=== PATIENT | female | born 1985 | race Caucasian/White ===

== ENCOUNTER 2022-06-11 08:29 | Outpatient (REF) | payer OTHER, SELFPAY ==
[2022-06-11 08:37] LABS: MANUAL DIFF FLAG NO
[2022-06-11 09:30] LABS: Basophils Percent Auto 0.7 % (0-2); Eosinophils Absolute Auto 0.1 X10*3/uL (0.0-0.4); Eosinophils Percent Auto 2.4 % (0-4); Hematocrit 43.3 % (37.0-47.0); Hemoglobin 14.1 g/dl (12.0-16.0); Imm Gran Abs Auto 0.03 X10*3/uL (0.00-0.03); Imm Gran Pct Auto 0.5 % (0.0-0.4); Lymphocytes Absolute Auto 1.4 X10*3/uL (1.2-4.9); Lymphocytes Percent Auto 25.2 % (20-40); Mean Corpuscular HGB Conc 32.6 g/dl (31.0-35.0); Mean Corpuscular Hemoglobin 29.2 pg (27.0-33.0); Mean Corpuscular Volume 89.6 fL (80.0-98.0); Mean Platelet Volume 10.9 fL (9.4-12.3); Monocytes Absolute Auto 0.5 X10*3/uL (0.1-1.2); Monocytes Percent Auto 8.4 % (2-11); Neutrophils Absolute Auto 3.4 x10*3/uL (2.0-8.3); Neutrophils Percent Auto 62.8 % (45-73); Platelet Count 194 X10*3/uL (160-400); Red Blood Count 4.83 X10*6/uL (4.20-5.50); Red Cell Distribution Width 12.4 % (11.0-16.0); White Blood Count 5.5 X10*3/uL (4.8-10.8)
[2022-06-11 10:07] LABS: Alanine Aminotransferase 18 U/L (0-31); Albumin Level 4.2 g/dL (3.5-5.0); Alkaline Phosphatase 83 U/L (39-117); Anion Gap 10 (12-20); Aspartate Amino Transferase 13 U/L (5-31); Bilirubin Total 0.4 mg/dL (0.0-1.0); Blood Urea Nitrogen 18 mg/dL (9-16); Calcium 9.5 mg/dL (8.4-10.2); Carbon Dioxide 28 mmol/L (22-29); Chloride 109 mmol/L (96-108); Cholesterol 179 mg/dL; Estimated Glomerular Filt Rate > 60; Glucose Random 82 mg/dL (60-115); HDL Cholesterol 45 mg/dL; LDL Cholesterol Calculated 120 mg/dl; Potassium 4.4 mmol/L (3.3-5.1); Sodium 143 mmol/L (135-145); Total Protein 6.6 g/dL (6.5-8.0); Triglycerides 70 mg/dL
[2022-06-11 10:13] LABS: TSH reflex Free T4 1.65 uIU/mL (0.32-4.0); Vitamin D 25-OH Total 17.7 ng/mL (>30)
== END 2022-06-11 08:30 | disposition home or self-care (01) ==
LOC: HO.LAB 08:29
PROVIDERS: PCP Physician Assistant; Visit Provider Nurse Practitioner Family
DX: E55.9 Vitamin D deficiency, unspecified (principal); Z13.0 Encounter for screening for diseases of the blood and blood-forming organs and certain disorders involving the immune mechanism; Z13.1 Encounter for screening for diabetes mellitus; Z13.29 Encounter for screening for other suspected endocrine disorder; Z13.21 Encounter for screening for nutritional disorder
CPT/HCPCS: 36415; 80053; 80061; 82306; 84443; 85025

== ENCOUNTER 2022-12-06 08:50 | Outpatient (AMB) | payer OTHER, SELFPAY ==
--- NOTE | 2022-12-06 08:57 | MHC.PC.OV ---
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 Patient of Nikos Kim, last seen in may. Presents today for poision patricia x 2 weeks. Patient states happened after picking up geese. 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 However her [id number] IV wash-in treatments are not relieving her symptoms Patient has erythema and swelling to right ring finger as well as scabbed over area of linear lesions to right rest from scratching. Patient also reports itching and erythema left ear. Patient states that she was previously on prednisone in the past that has relieved her symptoms of poison patricia. Patient requesting prescription for poison patricia. [facility] Medical History Anxiety Elevated blood pressure reading Ulnar neuropathy Vitamin D deficiency Family History Sister Bipolar 1 disorder Brother Autism Brother No problems noted. Mother Diabetes Father Diabetes Son No problems noted. Son No problems noted. Social History Housing: House Patient Tobacco Use Status: Former Tobacco user Tobacco use type: Cigarette e-Cigarette/Vaping Use: Never Used Second Hand Smoke Exposure: Yes Current occupational status: employed Cognitive needs: No Hearing needs: No Vision needs: No Questionnaire Thrive Questionnaire Date Thrive assessed: 06/11/22 RATNA-7 AMB Questionnaire RATNA-7 Date RATNA - 7 assessed: 06/11/22 Source: Developed by Drs. Venkatesh Camara, Merlyn Ortiz, Kali Hamilton and colleagues, with an educational sully from [employer]. Review of Systems Const Denies chills, Denies fatigue, Denies fever(s) and Denies poor appetite Eyes Denies no additional complaints ENT Reports Normal hearing present Card Denies chest pain, Denies syncope, Denies rapid heart rate and Denies dyspnea Resp Denies cough and Denies dyspnea GI Denies change in stool character, Denies constipation, Denies diarrhea, Denies nausea and Denies vomiting Denies urinary frequency, Denies dysuria and Denies urinary urgency Skin/Breast Details: poisoin patricia donell right ring finger, right wrist, behind left ear and on left chest Neuro Reports Normal hearing present, Denies confusion and Denies syncope Psych Denies confusion Endo Denies fatigue Physical exam (Primary Care) Vital Signs: Last Vital Signs Pulse 72 12/06/22 08:58 BP 126/72 12/06/22 08:58 Pulse Ox 100 12/06/22 08:58 Oxygen Delivery Method Room Air 12/06/22 08:58 BMI result Body Mass Index 32.0 Tobacco/Smoking Status: Tobacco use Status Tobacco use date assessed 06/11/22 12/06/22 09:01 Patient Tobacco Use Status Former Tobacco user 12/06/22 09:01 Tobacco use type Cigarette 12/06/22 09:01 e-Cigarette/Vaping Use Never Used 12/06/22 09:01 Thrive Assessment: Date of Thrive Assessment Date Thrive assessed 06/11/22 12/06/22 09:01 Const General: No confusion Orientation/consciousness: No confusion HENMT Head: Yes normocephalic and Yes atraumatic Eyes Conjunctivae: conjunctivae normal Chest Chest palpation & inspection: normal inspection of the chest Resp Effort & Inspection: normal respiratory effort Auscultation: clear to auscultation bilaterally, no crackles, no rhonchi and no wheezes Cardio Rate: regular rate Rhythm: regular rhythm Heart sounds: S1 normal heart sound present and S2 normal heart sound present GI Inspection: Yes normal to inspection Skin Other: Scabbed over poison patricia appearing linear rash noted to right wrist, right ring finger erythema and swelling, erythema and scratching noted behind left ear as well as left chest. Neuro General: No confusion Cranial nerves: Yes Normal hearing present Extrem General: No edema Assessment and Plan Assessment & Plan (1) Poison patricia dermatitis: Code(s): L23.7 - Allergic contact dermatitis due to plants, except food Plan: Will send prednisone 40 mg daily x5 days as patient reports this has resolved her symptoms with a really bad in the past. (2) Anxiety: Code(s): F41.9 - Anxiety disorder, unspecified Plan: Patient reports that her symptoms of anxiety and depression have improved since on her escitalopram, requesting refills for this. Rx sent to patient's pharmacy. (3) Depression: Code(s): F32.A - Depression, unspecified Plan: see anxiety plan Medications: New prednisone 40 mg (2 x 20 mg) PO DAILY 10 tabs 0RF L23.7 - Allergic contact dermatitis due to plants, except food Refilled escitalopram oxalate 10 mg PO DAILY 30 tabs 3RF Coding Level of Care Code Est Pt Level 3 (22026) Diagnoses Poison patricia dermatitis L23.7 Anxiety F41.9 Depression F32.A
[2022-12-06 08:58] VITALS: BP 126/72; PULSE 72; O2SAT 100; BMI 32.0
== END 2022-12-06 09:35 | disposition home or self-care (01) ==
PROVIDERS: PCP Physician Assistant; Visit Provider Nurse Practitioner Family
DX: L23.7 Allergic contact dermatitis due to plants, except food (principal); F41.9 Anxiety disorder, unspecified; F32.A Depression, unspecified
CPT/HCPCS: 99213

== ENCOUNTER 2022-12-20 14:09 | Outpatient (AMB) | payer OTHER, SELFPAY ==
[2022-12-20 14:23] VITALS: BP 132/78; PULSE 97; O2SAT 98; BMI 31.8
--- NOTE | 2022-12-20 14:23 | MHC.PC.OV ---
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 Have not seen patient in over 3 years. Patient has a past medical history significant for depression, anxiety, former smoker. Anxiety and depression: Continues on escitalopram 10 mg which has worked wonderfully on reducing anxiety and depressive thoughts. She is now speak with a mental health therapist whom she likes. In discussion she was told to follow-up with her PCP about possibly being treated for ADD/ADHD disorder. She reports she has trouble at her place of employment keeping on task, even at home she starts multiple tasks though is never able to finish. She was treated for ADD in the past as a child with Adderall with excellent response on staying focused and staying on tasks. [facility] Medical History Anxiety Elevated blood pressure reading Ulnar neuropathy Vitamin D deficiency Family History Sister Bipolar 1 disorder Brother Autism Brother No problems noted. Mother Diabetes Father Diabetes Son No problems noted. Son No problems noted. Social History Housing: House Patient Tobacco Use Status: Former Tobacco user Tobacco use type: Cigarette e-Cigarette/Vaping Use: Never Used Second Hand Smoke Exposure: Yes Current occupational status: employed Cognitive needs: No Hearing needs: No Vision needs: No Questionnaire Thrive Questionnaire Date Thrive assessed: 06/11/22 RATNA-7 AMB Questionnaire RATNA-7 Date RATNA - 7 assessed: 06/11/22 Source: Developed by Drs. Venkatesh Camara, Merlyn Ortiz, Kali Hamilton and colleagues, with an educational sully from [employer]. Review of Systems Const Denies headache(s) Eyes Denies loss of vision ENT Denies vertigo, Denies dizziness, Denies headache(s) and Denies sore throat Card Denies chest pain, Denies leg edema and Denies lightheadedness Resp Denies cough, Denies hemoptysis and Denies wheezing GI Denies abdominal pain, Denies melena, Denies constipation, Denies diarrhea and Denies vomiting Denies urinary frequency, Denies dysuria and Denies urinary urgency Musc Denies arthralgias, Denies joint swelling, Denies numbness and Denies tingling Neuro Denies Abnormal speech present, Denies behavioral changes, Denies vertigo, Denies dizziness, Denies headache(s), Denies loss of vision, Denies memory loss, Denies numbness and Denies tingling Psych Denies anxiety, Denies behavioral changes, Denies depression, Reports difficulty concentrating, Denies memory loss and Denies panic attacks Domo/Lymph Denies easy bleeding and Denies easy bruising Aller/Immun Denies wheezing Physical exam (Primary Care) Vital Signs: Last Vital Signs Pulse 97 12/20/22 14:23 BP 132/78 12/20/22 14:23 Pulse Ox 98 12/20/22 14:23 Oxygen Delivery Method Room Air 12/20/22 14:23 BMI result Body Mass Index 31.8 Tobacco/Smoking Status: Tobacco use Status Tobacco use date assessed 06/11/22 12/20/22 14:23 Patient Tobacco Use Status Former Tobacco user 12/20/22 14:23 Tobacco use type Cigarette 12/20/22 14:23 e-Cigarette/Vaping Use Never Used 12/20/22 14:23 Thrive Assessment: Date of Thrive Assessment Date Thrive assessed 06/11/22 12/20/22 14:23 Const General: healthy appearing, no acute distress, alert and awake Nutritional Appearance: well nourished Orientation/consciousness: oriented to person, oriented to place and oriented to time HENMT Ears: TM's normal bilaterally General nose exam: Normal nasal mucous membranes and turbinates present Eyes Conjunctivae: conjunctivae normal Sclerae: sclerae normal Pupils: Equal, round and reactive pupils present Neck Neck: Yes no lymphadenopathy and Yes no JVD Thyroid: Thyroid normal Carotids: no bruits Resp Effort & Inspection: normal respiratory effort and not tachypneic Auscultation: no crackles, no rales, no rhonchi and no wheezes Cardio Rate: regular rate Rhythm: regular rhythm Heart sounds: no murmurs and normal S1 and S2 GI Palpation (GI): Soft to palpation, nontender, no hepatomegaly and no splenomegaly Auscultation: normal bowel sounds Skin General skin exam: no rashes or lesions noted and dry skin Neuro General: oriented to person, oriented to place and oriented to time Cranial nerves: Yes Equal, round and reactive pupils present Speech: No Abnormal speech present Gait exam (Neuro): Normal gait present Motor exam (neuro): no tremor noted Extrem Right upper extremity: full ROM Left upper extremity: full ROM Right lower extremity: full ROM; no edema Left lower extremity: full ROM; no edema Psych Mental Status: mental status grossly normal Speech and movement: Normal speech and movement present Affect: normal affect Attitude: cooperative Thought process: Normal thought process present Assessment and Plan Assessment & Plan (1) ADHD: Code(s): F90.9 - Attention-deficit hyperactivity disorder, unspecified type Qualifiers: Attention deficit-hyperactivity disorder type: predominantly inattentive Qualified Code(s): F90.0 - Attention-deficit hyperactivity disorder, predominantly inattentive type Plan: Patient does have a lifelong history of ADHD disorder was treated as a child with Adderall. Has been finding it very difficult to stay on task and focus at home and at her place of employment. She does report losing some jobs due to not being able to focus on task. She is interested in restarting ADHD medication to help her with her attention and focus. You also like to stay on SSRI therapy as it is been working wonderfully to reduce her depressive thoughts and moods along with reducing her anxiety. She will continue following up with her mental health therapist whom she likes a lot. (2) Anxiety: Code(s): F41.9 - Anxiety disorder, unspecified Plan: Anxiety now much better controlled with escitalopram 10 mg. Now speaking with a mental health therapist as well. Medications: New dextroamphetamine-amphetamine 5 mg ER (Adderall XR) Partial Fill upon patient request. 5 mg PO DAILY 28 days 28 caps 0RF F90.0 - Attention-deficit hyperactivity disorder, predominantly inattentive type Coding Level of Care Code Est Pt Level 4 (34171) Diagnoses ADHD F90.0 Attention deficit-hyperactivity disorder type: predominantly inattentive Anxiety F41.9
== END 2022-12-20 15:08 | disposition home or self-care (01) ==
PROVIDERS: PCP Physician Assistant; Visit Provider Physician Assistant
DX: F90.0 Attention-deficit hyperactivity disorder, predominantly inattentive type (principal); F41.9 Anxiety disorder, unspecified
CPT/HCPCS: 99214

== ENCOUNTER 2023-01-10 19:58 | Emergency (ER) | payer OTHER, SELFPAY ==
[2023-01-10 20:34] VITALS: BP 127/89; PULSE 82; RESP 18; TEMP 36.7; O2SAT 98; BMI 31.7
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
[2023-01-10] MEDS: Ketorolac Tromethamine 30 MG/ML VIAL IM (21:10)
== END 2023-01-10 21:30 | disposition home or self-care (01) ==
PROVIDERS: Emergency Provider Internal Medicine; PCP Physician Assistant
DX: Z04.1 Encounter for examination and observation following transport accident (principal); M62.830 Muscle spasm of back
CPT/HCPCS: 96372; 99283; 99284; J1885

== ENCOUNTER 2023-01-24 15:11 | Outpatient (AMB) | payer OTHER, MEDICAID, SELFPAY ==
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
[2023-01-24 15:27] VITALS: BP 118/80; PULSE 80; RESP 17; O2SAT 99; BMI 30.9
== END 2023-01-24 16:16 | disposition home or self-care (01) ==
PROVIDERS: PCP Physician Assistant; Visit Provider Physician Assistant
DX: F90.0 Attention-deficit hyperactivity disorder, predominantly inattentive type (principal); V89.2XXA Person injured in unspecified motor-vehicle accident, traffic, initial encounter; M54.50 Low back pain, unspecified; M25.512 Pain in left shoulder; M54.6 Pain in thoracic spine
CPT/HCPCS: 99214

== ENCOUNTER 2023-03-07 07:00 | Outpatient (RCR) | payer OTHER, SELFPAY ==
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
--- NOTE | 2023-04-03 07:29 | MHC.PT.DC ---
[facility] [place] Office [place] Office [place] Office [address] Maria M Torres [address] [phone] F: [phone] F: [phone] F: [phone] F: [phone] Physical Therapy Discharge Report Diagnosis: This is a 37 yo female presenting to skilled PT with a script for low back pain. Date of Surgery: Date of Evaluation: 01/31/23 Date of Discharge: 04/03/23 Treatments to Date: 8 Cancellations to Date: 0 No Shows to Date: 0 Discharge Status: Patient Elected to Stop Discharge Summary: Per last tx note Improved symptoms noted today, trialed cervical traction and did not have pain. Plan to assess again next week and continue shoulder stretching and strengthening with traction if this continues to help. However, she cancelled her last appointment and did not reschedule, her chart was closed after 30 days. She has seen her PCP and appears to be managing her continuation of symptoms with her PCP. She has a sufficient HEP to continue on her own, DC to HEP. Electronically signed by: Karen Wilkerson PT Please sign and return to therapist. Thank you for your referral.
== END 2023-04-03 07:30 | disposition home or self-care (01) ==
LOC: HO.PTCHIC 07:00
PROVIDERS: PCP Physician Assistant; Visit Provider Physician Assistant
DX: M54.50 Low back pain, unspecified (principal)
CPT/HCPCS: 97014; 97110; 97140; 97161

== ENCOUNTER 2023-03-18 14:58 | Outpatient (AMB) | payer OTHER, SELFPAY ==
[2023-03-18 15:06] VITALS: BP 130/88; PULSE 74; O2SAT 98; BMI 32.1
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
== END 2023-03-18 15:50 | disposition home or self-care (01) ==
PROVIDERS: PCP Physician Assistant; Visit Provider Physician Assistant
DX: F90.0 Attention-deficit hyperactivity disorder, predominantly inattentive type (principal); F41.9 Anxiety disorder, unspecified; S46.012D Strain of muscle(s) and tendon(s) of the rotator cuff of left shoulder, subsequent encounter
CPT/HCPCS: 99214

== ENCOUNTER 2023-05-10 13:57 | Outpatient (REF) | payer OTHER, SELFPAY ==
--- NOTE | ~2023-05-10 | XR_ITS ---
EXAMINATION: XR THORACIC SPINE CLINICAL INFORMATION: Pain. COMPARISON: None available. TECHNIQUE: AP, lateral and swimmer's views of the thoracic spine were obtained. FINDINGS: There is no fracture or bone destruction seen and the vertebral alignment is normal. There is no disc space narrowing. There is no abnormality of the paraspinal soft tissues. XR/XR lumbar spine 4V min IMPRESSION: Unremarkable examination. EXAMINATION: XR LUMBOSACRAL SPINE CLINICAL INFORMATION: Lower back pain. COMPARISON: None TECHNIQUE: Three views of the lumbosacral spine. FINDINGS: There is a transitional vertebral body which is designated L6. The vertebral bodies and posterior elements are normal. The disc spaces are preserved and the vertebral alignment is normal. The paraspinal soft tissues are normal. IMPRESSION: A transitional vertebral body is noted. The examination is otherwise unremarkable.
--- NOTE | ~2023-05-10 | XR_ITS ---
EXAMINATION: XR SHOULDER, LEFT CLINICAL INFORMATION: Pain. COMPARISON: None available. TECHNIQUE: AP external rotation, Grashey, scapular Y, and axillary views of the left shoulder. FINDINGS: The bones and soft tissues are normal. No fracture. Glenohumeral and acromioclavicular alignment is anatomic with normal joint space. No abnormal soft tissue calcifications. XR/XR shoulder LT min 2V IMPRESSION: Normal left shoulder.
--- NOTE | ~2023-05-10 | XR_ITS ---
EXAMINATION: XR THORACIC SPINE CLINICAL INFORMATION: Pain. COMPARISON: None available. TECHNIQUE: AP, lateral and swimmer's views of the thoracic spine were obtained. FINDINGS: There is no fracture or bone destruction seen and the vertebral alignment is normal. There is no disc space narrowing. There is no abnormality of the paraspinal soft tissues. XR/XR thoracic spine 3V IMPRESSION: Unremarkable examination. EXAMINATION: XR LUMBOSACRAL SPINE CLINICAL INFORMATION: Lower back pain. COMPARISON: None TECHNIQUE: Three views of the lumbosacral spine. FINDINGS: There is a transitional vertebral body which is designated L6. The vertebral bodies and posterior elements are normal. The disc spaces are preserved and the vertebral alignment is normal. The paraspinal soft tissues are normal. IMPRESSION: A transitional vertebral body is noted. The examination is otherwise unremarkable.
[2023-05-11 04:04] LABS: CT PCR NOT DETECTED (Not Detect.); NG PCR NOT DETECTED (Not Detect.)
[2023-05-11 14:56] LABS: BV Int Neg Control Negative (Negative); BV Int Pos Control Positive (Positive)
[2023-05-17 02:58] LABS: HPV 16 RNA NOT DETECTED (NOT DETECTED); HPV mRNA E6/E7 rflx Detected (Not Detected)
== END 2023-05-10 13:58 | disposition home or self-care (01) ==
LOC: HO.LNP 13:57
PROVIDERS: PCP Physician Assistant; Visit Provider Advanced Practice Midwife
DX: Z01.419 Encounter for gynecological examination (general) (routine) without abnormal findings (principal); Z11.51 Encounter for screening for human papillomavirus (HPV); Z20.2 Contact with and (suspected) exposure to infections with a predominantly sexual mode of transmission; M25.512 Pain in left shoulder; M54.6 Pain in thoracic spine; M54.50 Low back pain, unspecified
CPT/HCPCS: 0353U; 72072; 72110; 73030; 87480; 87510; 87624; 87625; 87660; 88142

== ENCOUNTER 2023-05-10 13:57 | Outpatient (AMB) | payer OTHER, SELFPAY ==
[2023-05-10 13:59] VITALS: BP 124/80; BMI 32.6
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
== END 2023-05-10 15:27 | disposition home or self-care (01) ==
LOC: HO.HWSM 13:57
PROVIDERS: PCP Physician Assistant; Visit Provider Advanced Practice Midwife
DX: Z01.419 Encounter for gynecological examination (general) (routine) without abnormal findings (principal); Z12.4 Encounter for screening for malignant neoplasm of cervix; Z97.5 Presence of (intrauterine) contraceptive device
CPT/HCPCS: 99385

== ENCOUNTER 2023-05-10 15:41 | Outpatient (REF) | payer OTHER, SELFPAY | END 2023-05-10 15:42 | disposition home or self-care (01) | LOC: HO.XRAY 15:41 | PROVIDERS: PCP Physician Assistant; Visit Provider Physician Assistant | DX: Z13.89 Encounter for screening for other disorder (principal) ==

== ENCOUNTER 2023-06-05 07:29 | Outpatient (AMB) | payer OTHER, SELFPAY ==
[2023-06-05 07:34] VITALS: BP 122/80; BMI 32.6
--- NOTE | 2023-06-05 07:34 | A.OFFVIS_ITS ---
Intake Vital Signs 06/05/23 07:34 Height 5 ft 9 in Weight 220 lb 7.396 oz BMI 32.6 BP 122/80 Intake Visit Reasons: Colposcopy Allergies No Known Allergies Allergy (Verified 05/10/23 14:00) HPI HPI Comments History of Present Illness Details Presenting for colposcopy for ascus/HPV E6/E7 positive, HPV 16/18/45 negative [facility] Medical History Vitamin D deficiency Anxiety Ulnar neuropathy Elevated blood pressure reading Family History Sister Bipolar 1 disorder Brother Autism Brother No problems noted. Mother Diabetes Father Diabetes Son No problems noted. Son No problems noted. Social History Housing: House Alcohol intake: current Alcohol intake frequency: holidays/special occasions only Patient Tobacco Use Status: Former Tobacco user Tobacco use type: Cigarette e-Cigarette/Vaping Use: Never Used Second Hand Smoke Exposure: Yes Current occupational status: employed Cognitive needs: No Hearing needs: No Vision needs: No Female Reproductive History Menstrual Age of Menarche: 10 Physical Exam Vital Signs: BMI result Body Mass Index 32.6 Office Procedures Colposcopy Before the procedure was started discussed with the patient the procedure, alternatives & all the risks associated with the procedure (bleeding, infection, injury to vagina, bladder, vessels, possible need for transfusion with all its risks) then patient signed the consent UPT done in the office & negative Pap smear = ascus/HPV positive Speculum inserted, acetic acid used Colposcopy done Transformation zone seen, acetowhite lesions identified at 12+1+3+4+5 o?clock, cervical biopsies taken from 12+1+3+4+5 o?clock, ECC done afterwards. Vaginoscopy of the upper vagina showed no evidence of any aceto-white lesions Monsel solution used for hemostasis. The patient tolerated well . At the end the patient was instructed to call if temp>100.4, abdominal pain, n/v, bleeding; The patient was given the following instructions: nothing per vagina, no intercourse or bath tub use. All questions answered the patient verbalized understanding. Instructed the patient to make an appointment in 2 weeks for follow-up This note was generated with a voice recognition program. Some errors may have been overlooked during the review of this note. Sometimes these errors may affect the content or meaning of a given sentence. 88511-Tylepolwg of cervix including upper vagina with biopsy and ECC Procedure code (CPT) selection complete Assessment & Plan Assessment & Plan (1) ASCUS with positive high risk HPV cervical: Code(s): R87.610 - Atypical squamous cells of undetermined significance on cytologic smear of cervix (ASC-US); R87.810 - Cervical high risk human papillomavirus (HPV) DNA test positive Plan: Colposcopy done, see procedure note Orders: Orders AMB Colposcopy Today R87.610 - Atypical squamous cells of undetermined significance on cytologic smear of cervix (ASC-US), R87.810 - Cervical high risk human papillomavirus (HPV) DNA test positive Coding Level of Care Code Procedure Only Diagnoses ASCUS with positive high risk HPV cervical R87.610; R87.810 CPT Codes Colposcopy - CPT: 20501-Mznmowqxz of cervix including upper vagina with biopsy and ECC ([id number])
== END 2023-06-05 08:00 | disposition home or self-care (01) ==
PROVIDERS: PCP Physician Assistant; Visit Provider Obstetrics & Gynecology
DX: R87.610 Atypical squamous cells of undetermined significance on cytologic smear of cervix (ASC-US) (principal); R87.810 Cervical high risk human papillomavirus (HPV) DNA test positive; Z32.02 Encounter for pregnancy test, result negative
CPT/HCPCS: 57454

== ENCOUNTER 2023-06-05 07:29 | Outpatient (REF) | payer OTHER, SELFPAY | END 2023-06-05 07:30 | disposition home or self-care (01) | LOC: HO.LNP 07:29 | PROVIDERS: PCP Physician Assistant; Visit Provider Obstetrics & Gynecology | DX: R87.810 Cervical high risk human papillomavirus (HPV) DNA test positive (principal); R87.610 Atypical squamous cells of undetermined significance on cytologic smear of cervix (ASC-US) | CPT/HCPCS: 57454; 81025; 88305; 88342; 88360 ==

== ENCOUNTER 2023-06-07 08:52 | Outpatient (AMB) | payer OTHER, SELFPAY ==
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
== END 2023-06-07 09:42 | disposition home or self-care (01) ==
PROVIDERS: PCP Physician Assistant; Visit Provider Physician Assistant
DX: S46.092A Other injury of muscle(s) and tendon(s) of the rotator cuff of left shoulder, initial encounter (principal)
CPT/HCPCS: 99204

== ENCOUNTER → 2023-06-07 08:52 | Outpatient (BNVA) | payer OTHER, SELFPAY | PROVIDERS: PCP Physician Assistant; Visit Provider Physician Assistant ==

== ENCOUNTER 2023-06-11 13:43 | Outpatient (AMB) | payer OTHER, SELFPAY ==
[2023-06-11 13:45] VITALS: BP 130/82; PULSE 71; TEMP 37.8; O2SAT 99; BMI 32.9
--- NOTE | 2023-06-11 13:45 | MHC.OFFWIV ---
Intake Vital Signs 06/11/23 13:45 Height 5 ft 9 in Weight 222 lb 8 oz BMI 32.9 BP 130/82 Blood Pressure Location Lt brachial Position Sitting Pulse 71 Pulse Source Pulse Oximeter Temp 100.1 F Temp Source Temporal Artery Scan Pulse Oximetry (%) 99 Oxygen Delivery Method Room Air Intake Visit Reasons: EP fever other stuff venkat on Intake Note: pt is here today for fever saturday Patient Tobacco Use Status: Former Tobacco user Allergies No Known Allergies Allergy (Verified 06/11/23 14:30) Medication List - Last Reconciled 06/11/23 by Chilo Atkinson MD acetaminophen (Tylenol) 650 mg (2 x 325 mg) PO Q6H PRN dextroamphetamine-amphetamine 10 mg ER (Adderall XR) 10 mg PO DAILY 28 days ibuprofen 800 mg PO Q8H PRN levonorgestrel (Liletta) intrauterine Do you need a note to return to daycare/school/sports/work: Yes HPI EP fever other stuff venkat on HPI Details 38 yr old female presents to the office for a sick visit. She is reporting fever, bodyaches and chills for the past three days. She tested negative for Covid. Had a colposcopy procedure done last Saturday. Pt reports that following the procedure the vaginal and rectal area is sore/ PFSH Medical History Vitamin D deficiency Anxiety Ulnar neuropathy Elevated blood pressure reading Family History Sister Bipolar 1 disorder Brother Autism Brother No problems noted. Mother Diabetes Father Diabetes Son No problems noted. Son No problems noted. Social History Housing: House Alcohol intake: current Alcohol intake frequency: holidays/special occasions only Patient Tobacco Use Status: Former Tobacco user Tobacco use type: Cigarette e-Cigarette/Vaping Use: Never Used Second Hand Smoke Exposure: Yes Current occupational status: employed Cognitive needs: No Hearing needs: No Vision needs: No Female Reproductive History Menstrual Age of Menarche: 10 Physical Exam Vital Signs: Last Vital Signs Temp 100.1 F 06/11/23 13:45 Pulse 71 06/11/23 13:45 BP 130/82 06/11/23 13:45 Pulse Ox 99 06/11/23 13:45 Oxygen Delivery Method Room Air 06/11/23 13:45 BMI result Body Mass Index 32.9 Const General: cooperative and healthy appearing Nutritional Appearance: well nourished Orientation/consciousness: patient oriented x3 Limitations: no limitations HEENT Head: Yes normal to inspection Eyes General: appearance normal, both eyes and all related structures Neck Neck: Yes normal visual inspection Chest Chest palpation & inspection: normal palpation of entire chest wall Resp Effort & Inspection: normal respiratory effort Cardio Other: Tachycardia. Neuro General: patient oriented x3 Results AMB Urinalysis, Automated UA Leukoctes 0 Yuridia/uL Last Edit by Keila Ayala CMA on 06/11/23 14:38 UA Nitrite Negative Last Edit by Keila Ayala, OKSANA on 06/11/23 14:38 UA Urobilinogen 0.2 mg/dL Last Edit by Keila Ayala, OKSANA on 06/11/23 14:38 UA Protein 15 mg/dL Last Edit by Keila Ayala, OKSANA on 06/11/23 14:38 UA pH 6.0 Last Edit by Keila Ayala, OKSANA on 06/11/23 14:38 UA Blood 10 Huy/uL Last Edit by Keila Ayala, OKSANA on 06/11/23 14:38 UA Specific [place] 1.030 Last Edit by Keila Ayala CMA on 06/11/23 14:38 UA Ketone Negative Last Edit by Keila Ayala CMA on 06/11/23 14:38 UA Bilirubin 0 mg/dL Last Edit by Keila Ayala CMA on 06/11/23 14:38 UA Glucose 0 mg/dL Last Edit by Keila Ayala CMA on 06/11/23 14:38 Assessment & Plan Assessment & Plan (1) Febrile illness: Code(s): R50.9 - Fever, unspecified Plan: Urinalysis shows no evidence of infection. Viral swab done, will call with results. Antiviral medications started. Will call with results of blood work. Orders: Orders Liver Panel Today R50.9 - Fever, unspecified Basic Metabolic Panel Today R50.9 - Fever, unspecified Complete Blood Count no Diff Today R50.9 - Fever, unspecified Thyroid Stimulating Hormone Today R50.9 - Fever, unspecified SARS-CoV2/FLU/RSV Today R43.9 - Unspecified disturbances of smell and taste AMB Urinalysis Automated Today Z13.9 - Encounter for screening, unspecified Medications: New oseltamivir (Tamiflu) 75 mg PO BID 10 caps 0RF 5 days Coding Level of Care Code Est Pt Level 4 (26532) Diagnoses Febrile illness R50.9
== END 2023-06-11 15:10 | disposition home or self-care (01) ==
PROVIDERS: PCP Physician Assistant; Visit Provider Internal Medicine
DX: R50.9 Fever, unspecified (principal)
CPT/HCPCS: 81003; 99214

== ENCOUNTER 2023-06-11 14:42 | Outpatient (REF) | payer OTHER, SELFPAY ==
[2023-06-11 16:09] LABS: Hematocrit 41.4 % (37.0-47.0); Hemoglobin 13.8 g/dl (12.0-16.0); Mean Corpuscular HGB Conc 33.3 g/dl (31.0-35.0); Mean Corpuscular Hemoglobin 29.5 pg (27.0-33.0); Mean Corpuscular Volume 88.5 fL (80.0-98.0); Mean Platelet Volume 10.6 fL (9.4-12.3); Platelet Count 124 X10*3/uL (160-400); Red Blood Count 4.68 X10*6/uL (4.20-5.50); Red Cell Distribution Width 12.4 % (11.0-16.0); White Blood Count 7.5 X10*3/uL (4.8-10.8)
[2023-06-11 16:57] LABS: Alanine Aminotransferase 28 U/L (0-31); Alkaline Phosphatase 70 U/L (39-117); Anion Gap 13 (12-20); Aspartate Amino Transferase 19 U/L (5-31); Bilirubin Direct 0.2 mg/dL (0.0-0.5); Bilirubin Total 0.4 mg/dL (0.0-1.0); Blood Urea Nitrogen 7 mg/dL (9-16); Calcium 9.2 mg/dL (8.4-10.2); Carbon Dioxide 26 mmol/L (22-29); Chloride 103 mmol/L (96-108); Estimated Glomerular Filt Rate > 60; Glucose Random 137 mg/dL (60-115); Potassium 3.9 mmol/L (3.3-5.1); Sodium 138 mmol/L (135-145); Total Protein 7.2 g/dL (6.5-8.0)
[2023-06-11 17:11] LABS: Thyroid Stimulating Hormone 0.35 uIU/mL (0.32-4.0); Vitamin D 25-OH Total 21.5 ng/mL (>30)
[2023-06-11 17:39] LABS: Influenza A PCR NEGATIVE (Negative); Influenza B PCR NEGATIVE (Negative); Resp Syncy Virus RNA Qual PCR NEGATIVE (Negative); SARS COV2 PCR INHOUSE NEGATIVE (Negative)
== END 2023-06-11 14:43 | disposition home or self-care (01) ==
LOC: HO.HMGCLDS 14:42
PROVIDERS: Nurse Practitioner Family; PCP Physician Assistant; Visit Provider Internal Medicine
DX: Z11.52 Encounter for screening for COVID-19 (principal); Z20.822 Contact with and (suspected) exposure to COVID-19; R50.9 Fever, unspecified; R43.9 Unspecified disturbances of smell and taste; E55.9 Vitamin D deficiency, unspecified
CPT/HCPCS: 0241U; 36415; 80048; 80076; 82306; 84443; 85027

== ENCOUNTER 2023-06-14 17:28 | Inpatient (IN) | payer OTHER, SELFPAY ==
--- NOTE | ~2023-06-14 | CT_ITS ---
EXAMINATION: CT PELVIS WITH CONTRAST CLINICAL INFORMATION: Perineum access. COMPARISON: None available. TECHNIQUE: Helical scanning was performed with submillimeter collimation through the pelvis with the use of oral contrast and during bolus intravenous injection of 100 mL of Omnipaque 350 intravenous contrast. Sagittal and coronal multiplanar 2-D reconstructions were obtained. This CT examination was performed using dose optimization techniques as appropriate, variously including the following: *Automated exposure control *Adjustment of mA and/or kV according to patient size (this includes techniques or standardized protocols for targeted exams where dose is matched to indication/reason for exam; i.e. extremities or head) *Use of iterative reconstruction technique DLP: 362 mGy-cm FINDINGS: There is a 3.5 x 1.6 x 3.2 cm rim enhancing centrally low attenuating collection in the anal sphincteric complex in continuity with a tract that extends across the external sphincter into the left intergluteal fat. Visualized portions of the colon and small bowel are within normal limits. Normal appendix. IUD centered in the endometrial canal. There is a 1.7 cm corpus luteal cyst in the right ovary with a small amount of surrounding free fluid that extends into the cul-de-sac, favoring to represent partial rupture of the corpus luteal cyst or physiologic fluid, no suspicious features, no imaging follow-up is recommended. Normal appearance of the urinary bladder. Fairly symmetric subcentimeter pelvic sidewall lymph nodes, most likely reactive. Slightly asymmetric number and size of nonaggressive appearing left inguinal lymph nodes, for instance measuring 1 cm in short axis (2:42), are also most likely reactive in nature. No acute or aggressive-appearing osseous findings. CT/CT pelvis w IV con IMPRESSION: Findings are most consistent with a 3.5 cm anal abscess centered in the sphincteric complex with possible fistulous tract extending beyond the anal sphincters. A detailed anatomy of the internal and external sphincters is not well obtained. Further evaluation with MR pelvis perianal fistula protocol is recommended.
--- NOTE | ~2023-06-14 | US_ITS ---
EXAMINATION: US PELVIS CLINICAL INFORMATION: Pain. IUD, no LMP dates. COMPARISON: None available. TECHNIQUE: Ultrasound of the pelvis is performed using both transabdominal and transvaginal transducers along with Doppler. Transvaginal imaging is performed due to inadequate visualization transabdominally. FINDINGS: Uterus is anteverted measuring 8.5 x 4.3 x 4.4 cm. No uterine mass. IUD centered in the endometrial cavity. The right ovary is asymmetrically enlarged measuring 5.1 x 2.5 x 3.5 cm (23.4 mL) with a 1.7 x 2 x 1.9 cm complicated cyst that demonstrates avascular heterogeneous debris. There is preserved flow on spectral Doppler to the right ovary at the moment of this examination. There is a small amount of free fluid adjacent to the right ovary. The left ovary is normal in morphology and size with preserved flow at the moment of this examination. The left ovary measures 3.2 x 2.6 x 2.6 cm (11.3 mL). No adnexal mass. US/US pelvic and transvaginal IMPRESSION: There is a 2 cm complicated cyst in the right ovary that could represent a hemorrhagic cyst or corpus luteal cyst, recommend follow-up with pelvic ultrasound to 4-6 weeks. The right ovary is enlarged and there is free fluid adjacent to the right ovary, findings may be physiologic and related with the presence of the cyst, although the presence of partial torsion or torsion/detorsion cannot be excluded. Clinical correlation is needed; if there is high suspicious for acute ovarian pathology, then a shorter follow-up ultrasound is recommended. IUD in satisfactory positioning. Normal ultrasound appearance of the uterus and left ovary.
[2023-06-14 17:38] VITALS: BP 145/111; PULSE 97; RESP 18; TEMP 36.4; O2SAT 100; BMI 32.5
[2023-06-14 18:43] LABS: MANUAL DIFF FLAG NO
[2023-06-14 18:56] LABS: Anion Gap 14 (12-20); Blood Urea Nitrogen 12 mg/dL (9-16); Calcium 9.3 mg/dL (8.4-10.2); Carbon Dioxide 26 mmol/L (22-29); Chloride 106 mmol/L (96-108); Creatinine Clr Calc Pharmacy 124.5; Estimated Glomerular Filt Rate > 60; Glucose Random 108 mg/dL (60-115); Potassium 4.1 mmol/L (3.3-5.1); Sodium 142 mmol/L (135-145)
[2023-06-14 18:57] LABS: Basophils Percent Auto 0.3 % (0-2); Eosinophils Absolute Auto 0.1 X10*3/uL (0.0-0.4); Eosinophils Percent Auto 0.7 % (0-4); Hematocrit 39.6 % (37.0-47.0); Hemoglobin 13.5 g/dl (12.0-16.0); Imm Gran Abs Auto 0.03 X10*3/uL (0.00-0.03); Imm Gran Pct Auto 0.4 % (0.0-0.4); Lymphocytes Absolute Auto 1.5 X10*3/uL (1.2-4.9); Lymphocytes Percent Auto 21.6 % (20-40); Mean Corpuscular HGB Conc 34.1 g/dl (31.0-35.0); Mean Corpuscular Hemoglobin 29.5 pg (27.0-33.0); Mean Corpuscular Volume 86.7 fL (80.0-98.0); Mean Platelet Volume 10.7 fL (9.4-12.3); Monocytes Absolute Auto 0.7 X10*3/uL (0.1-1.2); Monocytes Percent Auto 9.7 % (2-11); Neutrophils Absolute Auto 4.8 x10*3/uL (2.0-8.3); Neutrophils Percent Auto 67.3 % (45-73); Platelet Count 143 X10*3/uL (160-400); Red Blood Count 4.57 X10*6/uL (4.20-5.50); Red Cell Distribution Width 12.7 % (11.0-16.0); White Blood Count 7.1 X10*3/uL (4.8-10.8)
[2023-06-14 22:00] VITALS: BP 130/87; PULSE 82; RESP 16; TEMP 36.6; O2SAT 98
--- NOTE | 2023-06-14 22:31 | ED_ITS ---
HPI - Female Genitourinary General Chief complaint: Urogenital-Female Stated complaint: personal Time Seen by Provider: 06/14/23 20:13 Source: patient, RN notes reviewed and old records reviewed Mode of arrival: ambulatory Limitations: no limitations History of Present Illness HPI Narrative: 38-year-old female presents for evaluation of pelvic pain. 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 The patient states that since then she has had fevers as high as 104 She was given azithromycin by urgent care and has 2 days left of this Patient also took 1 dose of Tamiflu despite testing negative for the flu She reports that she feels a mass in her perineum region She states that she can not see any overlying skin changes She reports significant pain to the area Related Data Home Medications Medication Instructions Recorded Confirmed levonorgestrel 20.4 mcg/24 hrs (8 intrauterine 05/10/23 05/10/23 yrs) 52 mg intrauterine device (Liletta) Previous Rx's Medication Instructions Recorded acetaminophen 325 mg capsule 650 mg (2 x 325 mg) PO Q6H PRN 01/10/23 (Tylenol) pain #30 caps ibuprofen 800 mg tablet 800 mg PO Q8H PRN pain #30 tabs 01/10/23 dextroamphetamine-amphetamine ER 10 mg PO DAILY 28 days #28 caps 06/10/23 10 mg 24hr capsule,extend release (Adderall XR) azithromycin 250 mg tablet See Rx Instructions PO .COMPLEX #6 06/12/23 tabs Allergies Allergy/AdvReac Type Severity Reaction Status Date / Time No Known Allergies Allergy Verified 06/14/23 17:41 Review of Systems 2 Constitutional: Constitutional: Denies body ache(s), Reports chills and Reports fever(s) Gastrointestinal: Gastrointestinal: Reports abdominal pain Genitourinary: Genitourinary: Denies dysuria and Reports pelvic pain C omments: Pelvic pain Integumentary/Breasts: Skin/Breast: Denies rash PMFSH Past Medical History Medical History Vitamin D deficiency Anxiety Ulnar neuropathy Elevated blood pressure reading Family History Family History Sister Bipolar 1 disorder Brother Autism Brother No problems noted. Mother Diabetes Father Diabetes Son No problems noted. Son No problems noted. Social History Social History Housing: House Alcohol intake: current Alcohol intake frequency: holidays/special occasions only Patient Tobacco Use Status: Former Tobacco user Tobacco use type: Cigarette Smoked in Last 30 Days: No e-Cigarette/Vaping Use: Never Used Second Hand Smoke Exposure: Yes Use of substances other than those prescribed or required for medical reasons: No Advance Directives: No Advance Directives Information Provided: No Patient : No Current occupational status: employed Cognitive needs: No Hearing needs: No Vision needs: No Physical Exam 2 Vital Signs: Vital Signs: Last Vital Signs Temp 97.8 F 06/14/23 22:00 Pulse 82 06/14/23 22:00 Resp 16 06/14/23 22:00 BP 130/87 06/14/23 22:00 Pulse Ox 98 06/14/23 22:00 O2 Del Method Room Air 06/14/23 22:00 BMI result Body Mass Index 32.5 Const: General: healthy appearing, comfortable, no acute distress, alert and awake Nutritional Appearance: well nourished Orientation/consciousness: p atient oriented x3 HEENT: Head: Yes normocephalic and Yes atraumatic Eyes: Eyelids: Yes eyelids normal Conjunctivae: conjunctivae normal S clerae: sclerae normal Corneas: corneas normal Pupils: Equal, round and reactive pupils present EOM: EOMs intact bilaterally Resp: Effort & Inspection: normal respiratory effort, able to speak in complete sentences and not labored : Other: Patient's cervix is erythematous with friable tissue. Minimal vaginal discharge. No active bleeding. Bimanual exam is significant for a palpable mass in the vaginal floor, this mass was not visible during the speculum exam Skin: Other: Patient has a palpable, firm mass in the perineum region approximately 2 cm in diameter. There are no overlying skin changes, no erythema, edema or wounds. General skin exam: elasticity normal Neuro: General: patient oriented x3 Cranial nerves: Yes Equal, round and reactive pupils present and Yes Bilaterally intact EOM present Cognition (Neuro): normal cognition Course Reevaluation(s) Reevaluation #1: CT scan shows a 3.5 cm anal abscess involving the anal sphincter. Discussed with General surgery, Dr. Garcia who will admit the patient. The patient is not septic, but did receive IV antibiotics with Zosyn. Time: 00:38 Medications Administered Discontinued Medications Generic Name Dose Route Start Last Admin Trade Name Eliza PRN Reason Stop Dose Admin Iohexol 85 ml 06/14/23 23:16 06/14/23 23:17 Iohexol 350 Mg/Ml 100 Ml Infus..Btl IV 06/14/23 23:17 85 ml ONCE ONE Administration Medical Decision Making Medical Decision Making [facility] Narrative: [age] old female presents for evaluation of pelvic pain and a palpable mass in the perineum. Clinically it appears most consistent with a intravaginal abscess, not visualized with speculum exam but is palpable on bimanual exam. This is possibly related to her recent colposcopy. Pelvic ultrasound was ordered which does not show the area of concern. Will get a CT scan of the pelvis with IV contrast to evaluate for pelvic abscess. Patient's vital signs are stable, she does not have a white count Differential Diagnosis Differential Diagnoses: The differential diagnosis associated with the presentation includes Pelvic abscess Trichomoniasis Bacterial vaginosis Seroma Bartholin's gland abscess Admission/Observation Consideration of admission/observation: Escalation of care including admission/observation considered Lab Data [facility] Lab Attestation statement: I reviewed the patient's lab results. No leukocytosis or anemia. No electrolyte abnormalities 06/14/23 18:39 06/14/23 18:39 Labs: Lab Results 06/14/23 06/14/23 Range/Units 18:39 22:36 WBC 7.1 (4.8-10.8) X10*3/uL RBC 4.57 (4.20-5.50) X10*6/uL Hgb 13.5 (12.0-16.0) g/dl Hct 39.6 (37.0-47.0) % MCV 86.7 (80.0-98.0) fL MCH 29.5 (27.0-33.0) pg MCHC 34.1 (31.0-35.0) g/dl RDW 12.7 (11.0-16.0) % Plt Count 143 L (160-400) X10*3/uL MPV 10.7 (9.4-12.3) fL Immature Gran % (Auto) 0.4 (0.0-0.4) % Neut % (Auto) 67.3 (45-73) % Lymph % (Auto) 21.6 (20-40) % Divide % (Auto) 9.7 (2-11) % Eos % (Auto) 0.7 (0-4) % Baso % (Auto) 0.3 (0-2) % Lymph # (Auto) 1.5 (1.2-4.9) X10*3/uL Divide # (Auto) 0.7 (0.1-1.2) X10*3/uL Eos # (Auto) 0.1 (0.0-0.4) X10*3/uL Baso # (Auto) 0.0 (0.0-0.2) X10*3/uL Abs Immat Gran (auto) 0.03 (0.00-0.03) X10*3/uL Absolute Neuts (auto) 4.8 (2.0-8.3) x10*3/uL Absolute Nucleated RBC 0.000 (0.0-0.012) X10*3/uL Nucleated RBC % (auto) 0.0 (0.0-0.2) /100WBC Sodium 142 (135-145) mmol/L Potassium 4.1 (3.3-5.1) mmol/L Chloride 106 (96-108) mmol/L Carbon Dioxide 26 (22-29) mmol/L Anion Gap 14 (12-20) BUN 12 (9-16) mg/dL Creatinine 0.77 (0.5-1.4) mg/dL Estim Creat Clear Calc 124.5 Estimated GFR > 60 Random Glucose 108 (60-115) mg/dL Calcium 9.3 (8.4-10.2) mg/dL Beta HCG, Quant < 2 mIU/mL Independent Interpretation I performed an independent interpretation of an: CT Scan (Agree with Radiology interpretation) Radiology Impression Discussion of test interpretation with radiology: I have reviewed the radiologist's reading. (3.5 cm anal abscess) Discharge Plan Discharge Clinical Impression: Anal abscess Patient Disposition: Admitted As Inpatient Prescriptions: No Action dextroamphetamine-amphetamine [Adderall XR] 10 mg capsule,extended release 24hr 10 mg PO DAILY 28 Days Qty: 28 0RF Rx Instructions: Partial Fill upon patient request. azithromycin 250 mg tablet See Rx Instructions PO .COMPLEX Qty: 6 0RF Rx Instructions: take 500 mg today (day 1), then 250 mg for 4 days (days 2-5) PO ibuprofen 800 mg tablet 800 mg PO Q8H PRN (Reason: pain) Qty: 30 0RF acetaminophen [Tylenol] 325 mg capsule 650 mg PO Q6H PRN (Reason: pain) Qty: 30 0RF Liletta 20.4 mcg/24 hrs (8 yrs) 52 mg intrauterine device intrauterine
--- NOTE | 2023-06-14 22:58 | PC.NURSE ---
pt presents for evaluation of pelvic pain and a palpable mass in the perineum. pt had colposcopy last saturday her at [facility] (sees MD Santillan) and has been experiencing increasing pain. Pt reports difficulty sitting upright, attemped sitz baths as well as APAP with minimal relief. Pt declines toradol at this time and wishes to continue APAP. Pt had Pelvic US w/ incidetntal finding of ovarian cyst, however area of concern was not visualized. This nurse placed 20G IV in Right bicep- HCG quant drawn, pt to have CT pelvis w/ IV con. Ct notified. pt resting quietly call davis within reach.
[2023-06-14 23:02] LABS: HCG Quantitative < 2 mIU/mL
[2023-06-14] MEDS: iohexoL 350 MG/ML 100 ML INFUS..BTL 85 ML IV (23:17)
[2023-06-15] MEDS: Lactated Ringers 1,000 ML 80 ML IVCONT (00:48)
[2023-06-15] MEDS: Piperacillin Sodium/Tazobactam 3.375 GM in 0.9 % Sodium Chloride 50 ML IV ×5 (00:48→23:42)
[2023-06-15 00:53] LABS: Appearance Urine Clear; Color Urine Yellow; Glucose Urine UA Negative (Negative); Leukocyte Esterase Urine Negative (Negative); Nitrite Urine Negative (Negative); Specific Gravity - Urine >= 1.030 (1.005-1.025); UMIC TRIGGER UACC YES; Urine Blood Trace (Negative); Urine Ketones Negative (Negative); Urine Protein Negative (Neg-Trace)
[2023-06-15 00:56] LABS: UPreg QC Valid YES; Urine Pregnancy NEGATIVE (NEGATIVE)
[2023-06-15 01:02] LABS: Lactic Acid 1.2 mmol/L (0.5-2.0)
[2023-06-15 01:03] LABS: Bacteria Urine None Seen (None Seen); Hyaline Casts Urine 0-2 /LPF (0-2); WBC Urine 0-5 /HPF (0-5)
[2023-06-15 02:00] VITALS: BP 120/82; PULSE 75; RESP 16; TEMP 36.8; O2SAT 97
[2023-06-15] MEDS: Morphine Sulfate 2 MG/ML CARTRIDGE IVPUSH (03:57)
[2023-06-15] MEDS: ondansetron HCL 4 MG/2 ML VIAL IVPUSH (04:59)
--- NOTE | 2023-06-15 08:49 | PM.HPGS ---
History of Present Illness History of Present Illness Date of Service: 06/18/23 Chief complaint: perianal abscess Narrative: Neelam Callejas is a 38 year old female came to the ER last night because of pressure type pain in the perineum along with some fevers at home. She says that she had a colposcopy 10 days ago for ASCUS. About 4 days later, she says she had a fever at home some pressure symptoms in her perineum. She went to an urgent care center sometime last week. She was tested for flu but she says that this was negative. She continued to have some periodic low-grade temperatures. She says that because of this she did not have good oral intake for the past few days. She also says that she has had this recurrent pressure type pain on the perineum mostly on the left side. She therefore came to the ER last night . She says that she thought that she may have a little ?lump? on the perineum as well near the anus. She says that this seemed to have decreased in size since last night. She denies any urinary symptoms. She denies any vaginal discharge. There is no fever documented since she had been in the ER. Review of Systems Constitutional: Constitutional: Denies chills and Reports fever(s) Cardiovascular: Cardiovascular: Denies chest pain, Denies dyspnea and Denies dyspnea on exertion Respiratory: Respiratory: Denies cough, Denies dyspnea and Denies dyspnea on exertion Gastrointestinal: Gastrointestinal: Denies hematochezia and Denies change in bowel habits Genitourinary: Genitourinary: Denies hematuria Musculoskeletal: Musculoskeletal: Denies back pain and Denies limited range of motion Neurologic: Denies focal weakness and Denies convulsions Psychiatric: Psychiatric: Denies depression and Denies mood swings PMF Past Medical History Medical History Vitamin D deficiency Anxiety Ulnar neuropathy Elevated blood pressure reading Family History Family History Sister Bipolar 1 disorder Brother Autism Brother No problems noted. Mother Diabetes Father Diabetes Son No problems noted. Son No problems noted. Social History Social History Household Members: Spouse and Children Housing: House Do you presently have visiting nurse or other home services: No Alcohol intake: current Alcohol intake frequency: holidays/special occasions only Patient Tobacco Use Status: Former Tobacco user Tobacco use type: Cigarette e-Cigarette/Vaping Use: Never Used Second Hand Smoke Exposure: Yes Substance Use Type: Marijuana service: No Current occupational status: employed Cognitive needs: No Hearing needs: No Vision needs: No Meds Allergies Allergy/AdvReac Type Severity Reaction Status Date / Time No Known Allergies Allergy Verified 06/14/23 17:41 Active Medications: Current Medications Piperacillin Sod/Tazobactam (Sod 3.375 gm/ Sodium Chloride) 50 mls @ 100 mls/hr IV Q6H [facility] Last Infusion: 06/15/23 05:37 Dose: Infused Lactated Ringer's (Lr) 1,000 mls @ 80 mls/hr IVCONT .[id number] [facility] Last Admin: 06/15/23 00:48 Dose: 80 mls/hr Morphine Sulfate (Morphine Sulfate 2 Mg/Ml Cartridge) 2 mg IVPUSH Q3H PRN; Protocol PRN Reason: Pain, Severe (Pain Scale 7-10) Last Admin: 06/15/23 03:57 Dose: 2 mg Ondansetron HCl (Ondansetron Hcl 4 Mg/2 Ml Vial) 4 mg IVPUSH Q8H PRN PRN Reason: Nausea Last Admin: 06/15/23 04:59 Dose: 4 mg Sodium Chloride (0.9 % Sodium Chloride Flush 3 Ml Syringe) 3 ml IVFLUSH QSHIFT [facility] Last Admin: 06/15/23 07:15 Dose: Not Given Home Medications Medication Instructions Recorded Confirmed Last Taken Type levonorgestrel 20.4 mcg/24 hrs (8 1 device intrauterine DIRECTED 05/10/23 06/15/23 Unknown History yrs) 52 mg intrauterine device (Liletta) cholecalciferol (vitamin D3) 50 50 mcg PO DAILY 06/15/23 06/15/23 Unknown History mcg (2,000 unit) capsule dextroamphetamine-amphetamine ER 10 mg PO DAILY PRN daytime 06/15/23 06/15/23 Unknown History 10 mg 24hr capsule,extend release sleepiness (Adderall XR) Physical Exam Vital Signs: Vital Signs: Last Vital Signs Temp 98.2 F 06/15/23 02:00 Pulse 75 02/17/24 02:00 Resp 16 06/15/23 02:00 BP 120/82 06/15/23 02:00 Pulse Ox 97 06/15/23 02:00 O2 Del Method Room Air 06/15/23 02:00 BMI result Body Mass Index 32.5 Const: General: comfortable and no acute distress Orientation/consciousness: patient oriented x3 Neck: Neck: Yes no lymphadenopathy Resp: Auscultation: clear to auscultation bilaterally Cardio: Rhythm: regular rhythm GI: Other: Rectal exam - no obvious once, no perianal redness, no cellulitis, she she does point to an area in the perineum on the left side anterior lateral to the perianal area as where the pain is. She says that she feels some ?swelling in this area although this is not obvious. There may be a subcentimeter induration in this particular area but this is kind of equivocal I was able to do a full digital rectal exam. There was no fluctuance, induration felt. He did not have significant tenderness with digital exam of the anal canal. Palpation (GI): Soft to palpation, nontender and no guarding Neuro: General: patient oriented x3 Results Results Labs: Short CBC 06/14/23 Range/Units 18:39 WBC 7.1 (4.8-10.8) X10*3/uL Hgb 13.5 (12.0-16.0) g/dl Hct 39.6 (37.0-47.0) % Plt Count 143 L (160-400) X10*3/uL BMP 06/14/23 18:39 Sodium 142 Potassium 4.1 Chloride 106 Carbon Dioxide 26 BUN 12 Creatinine 0.77 Calcium 9.3 Urine 06/15/23 Range/Units 00:43 Urine Color Yellow Urine Appearance Clear Urine pH 6.0 (5.0-9.0) Ur Specific [place] >= 1.030 H (1.005-1.025) Urine Protein Negative (Neg-Trace) mg/dL Urine Glucose (UA) Negative (Negative) mg/dL Urine Test NEGATIVE (NEGATIVE) Assessment and Plan (1) Anal abscess: Status: Acute She has this pressure type pain on the perineum near the anus on the left side. Her CAT scan suggest a fluid collection in this area that could be an abscess. I could not feel any obvious induration or fluctuance. I therefore explained to her it would be best to do a needle aspiration of the area in view of the equivocal findings. I prepped and they this area. This lidocaine 1% and I used a gauge 18 needle to aspirate this particular area that she points to with some vague induration. I made multiple passes. There was blood aspirated but there was no fluid or pus. Despite her CAT scan image this, I do not feel any obvious abscess or induration in the anal canal or in the perianal area. She also says that she feels that the ?swelling? that she had felt before was much better since last night. I would hold off on doing an I and D at this time in the absence of an obvious induration and tenderness on digital exam of the anus. She has no leukocytosis. She looks well otherwise I told her that the plan will be to continue on IV Zosyn. I will re-evaluate her over the next 24 hours. She understands the plan and says she is comfortable with this. Quality Stroke Does the patient have a stroke diagnosis?: No VTE Prior VTE?: No VTE Risk Level:: Medical - low VTE Device Contraindication: N/A - Device Ordered VTE Drug Contraindication: Treatment Not Indicated Procedures Date of Service Date of Service: 06/18/23
--- NOTE | 2023-06-15 08:50 | PHA.MEDREC ---
Pharmacy Consult ? Medication Reconciliation Pharmacy has completed the medication reconciliation. spoke with patient to confirm medications. She reports taking adderall occasionally and was last taken over a week ago. She reports her last dose of azithromycin was yesterday morning. She explained that she no longer takes the escitalopram and stopped a couple months ago.
[2023-06-15 09:45] LABS: CT PCR NOT DETECTED (Not Detect.); NG PCR NOT DETECTED (Not Detect.)
[2023-06-15 11:05] VITALS: BP 108/78; PULSE 77; RESP 18; TEMP 36.6; O2SAT 98
[2023-06-15 11:37] LABS: BV Int Neg Control Negative (Negative); BV Int Pos Control Positive (Positive)
[2023-06-15 12:41] VITALS: BP 124/73; PULSE 76; RESP 20; TEMP 36.4; O2SAT 99
[2023-06-15] MEDS: Lactated Ringers 1,000 ML 60 ML IVCONT (12:46)
--- NOTE | 2023-06-15 15:40 | PM.EVENT ---
Event Note Date of Service: 06/15/23 Event Note: feels better no fever pain near anus much improved looks well coontinue IV abx likely home tomorrow Time Spent With Patient Time: Total time managing care of this patient today ____ minutes.
[2023-06-15 15:42] VITALS: BP 118/74; PULSE 75; RESP 20; TEMP 36.3; O2SAT 98
[2023-06-15] MEDS: oxyCODONE HCl Immed Release 5 MG TABLET PO (19:07)
[2023-06-15 19:21] VITALS: BP 127/78; PULSE 76; RESP 20; TEMP 36.4; O2SAT 98
[2023-06-16 02:41] VITALS: BP 121/74; PULSE 75; RESP 18; TEMP 37.1; O2SAT 99
[2023-06-16] MEDS: Lactated Ringers 1,000 ML 60 ML IVCONT (04:57)
[2023-06-16] MEDS: Piperacillin Sodium/Tazobactam 3.375 GM in 0.9 % Sodium Chloride 50 ML IV ×2 (05:45→11:13)
[2023-06-16 07:56] VITALS: BP 121/80; PULSE 56; RESP 18; TEMP 36.6; O2SAT 99
--- NOTE | 2023-06-16 10:21 | PM.PNGS ---
Subjective Subjective Date of Service: 06/18/23 Interval history: She says that she had some scanty drainage within the anus overnight She still has a little bit of discomfort in the perineum although this seems to be better She has had no fever Physical Exam Vital Signs: Vital Signs: Last Vital Signs Temp 98 F 06/16/23 07:56 Pulse 56 06/16/23 07:56 Resp 18 06/16/23 07:56 BP 121/80 06/16/23 07:56 Pulse Ox 99 06/16/23 07:56 O2 Del Method Room Air 06/16/23 07:56 BMI result Body Mass Index 32.5 Const: General: comfortable and no acute distress Resp: Effort & Inspection: normal respiratory effort Cardio: Rate: regular rate GI: Other: Rectal exam - no obvious drainage, no obvious perianal induration or cellulitis Palpation (GI): Soft to palpation and not firm Objective Data Active Medications Piperacillin Sod/Tazobactam (Sod 3.375 gm/ Sodium Chloride) 50 mls @ 100 mls/hr IV Q6H [facility] Last Infusion: 06/16/23 06:15 Dose: Infused Documented By: MAGALI Lactated Ringer's (Lr) 1,000 mls @ 60 mls/hr IVCONT .[id number] [facility] Last Admin: 06/16/23 04:57 Dose: 60 mls/hr Documented By: MAGALI Morphine Sulfate (Morphine Sulfate 2 Mg/Ml Cartridge) 2 mg IVPUSH Q3H PRN; Protocol PRN Reason: Pain, Severe (Pain Scale 7-10) Last Admin: 06/15/23 03:57 Dose: 2 mg Documented By: FREEMAN Ondansetron HCl (Ondansetron Hcl 4 Mg/2 Ml Vial) 4 mg IVPUSH Q8H PRN PRN Reason: Nausea Last Admin: 06/15/23 04:59 Dose: 4 mg Documented By: FREEMAN Oxycodone HCl (Oxycodone Hcl Immed Release 5 Mg Tablet) 5 mg PO Q4H PRN PRN Reason: Pain, Moderate(Pain Scale 4-6) Last Admin: 06/15/23 19:07 Dose: 5 mg Documented By: MAGALI Sodium Chloride (0.9 % Sodium Chloride Flush 3 Ml Syringe) 3 ml IVFLUSH QSHIFT [facility] Last Admin: 06/16/23 08:26 Dose: Not Given Documented By: VON Non-Admin Reason: IV Running Labs 06/16/23 10:51 06/14/23 18:39 Labs: Laboratory Results - last 24 hr 06/14/23 20:52 Nayana species DNA Negative Gardnerella DNA Probe Negative Trichomonas DNA Probe Negative Microbiology Microbiology Results: Microbiology 06/15/23 01:19 Blood Culture - Preliminary Blood - Venous No growth after 24 hours. 06/15/23 00:43 Blood Culture - Preliminary Blood - Venous No growth after 24 hours. 06/14/23 20:52 Gram Stain - Final Vaginal Routine Culture - Preliminary Culture in progress. Trichomonas Preparation - Final Procedures Date of Service Date of Service: 06/18/23 Progress Note: A&P Assessment and plan (1) Anal abscess: Status: Acute Assessment and Plan: She describes having drainage from the anus last night She likely had an intersphincteric anal abscess that drained spontaneously I had aspirated perianal area yesterday with a needle and there was no abscess that could be drained She looks well overall She has had no fever I told her that since it appears she has had spontaneous drainage of this collection, I probably would hold off on doing an I and D in the OR this time She is thinking of getting discharge as she has had no fever for 3 days now and subjectively feels better I told her that if she does go home, I will need to follow her in the office closely She will be on oral antibiotics as well I will check on her again this afternoon I have ordered for a follow-up CBC Time Spent With Patient Time: Total time managing care of this patient today ____ minutes. Quality Stroke Does the patient have a stroke diagnosis?: No VTE Prior VTE?: No VTE Risk Level:: Medical - low VTE Device Contraindication: N/A - Device Ordered VTE Drug Contraindication: Treatment Not Indicated
[2023-06-16 11:03] LABS: Hematocrit 38.7 % (37.0-47.0); Mean Corpuscular HGB Conc 33.6 g/dl (31.0-35.0); Mean Corpuscular Hemoglobin 29.2 pg (27.0-33.0); Mean Platelet Volume 10.4 fL (9.4-12.3); Platelet Count 167 X10*3/uL (160-400); Red Blood Count 4.45 X10*6/uL (4.20-5.50); Red Cell Distribution Width 12.9 % (11.0-16.0)
[2023-06-16] MEDS: oxyCODONE HCl Immed Release 5 MG TABLET PO (13:41)
--- NOTE | 2023-06-16 14:26 | PM.EVENT ---
Event Note Date of Service: 06/16/23 Event Note: says she feels ok some pain in perineum but better digital rectal exam - she tolerated without difficulty, no obvious fluctuance or localized tenderness has had no fever x 3 days WBC normal she says she feels ready to be discharged I instructed her to call me for a ffup this week She understands risk of recurrence and poss. need for exam under anesthesia she says she is comfortable with plan Time Spent With Patient Time: Total time managing care of this patient today ____ minutes.
--- NOTE | 2023-06-16 16:09 | MHC.CM.PN ---
PT LIVES WITH S/O AND CHILDREN AND IS INDEPENDENT WITH CARE PT HAS NO DME, NO SERVICES AND WORKS PCP: ROCHELLE PABLO PT DISCHARGED HOME TODAY WITH NO SERVICES VIA PRIVATE TRANSPORT
--- NOTE | 2023-06-18 15:03 | PM.DS ---
DS: Providers Provider Date of Service: 06/16/23 Date of admission: 06/15/23 00:21 Primary care physician: Lencho Kim PA-C DS: Diagnosis Discharge Diagnosis (1) Anal abscess: Status: Acute DS: Summary Hospital Course Hospital Course: Neelam Callejas is a 38 year old female came to the ER on June 14 because of pressure type pain in the perineum along with some fevers at home. She says that she had a colposcopy 10 days prior for ASCUS. About 4 days later, she says she had a fever at home some pressure symptoms in her perineum. She went to an urgent care center sometime last week. She was tested for flu but she says that this was negative. She continued to have some periodic low-grade temperatures. She says that because of this she did not have good oral intake for the past few days. She also says that she has had this recurrent pressure type pain on the perineum mostly on the left side. She was therefore admitted. I did needle aspiration of the area under local anesthesia with multiple passes and I was not able to identify any fluid collection. She was placed on IV antibiotics She remained afebrile. She noted some anal drainage today after her admission. She did notice significant improvement although she described continuing pain. She remained afebrile during hospital stay. Her WBC was normal. Serial exam of her perianal area did not reveal any induration, redness, or fluctuance. In view of clinical improvement, she was discharged on June 16, 2023. She was directed see me in the office within the week. Time Attestation Discharge coordination time: Less than 30 minutes Quality: Safe Use of Opioids Does Pt have an Active Cancer Diagnosis on the Problem List?: No Quality: Stroke Does the patient have a stroke diagnosis?: No Physical Exam Vital Signs: Vital Signs: Last Vital Signs Temp 98 F 06/16/23 07:56 Pulse 56 06/16/23 07:56 Resp 18 06/16/23 07:56 BP 121/80 06/16/23 07:56 Pulse Ox 99 06/16/23 07:56 O2 Del Method Room Air 06/16/23 07:56 BMI result Body Mass Index 32.5 Const: General: comfortable and no acute distress Orientation/consciousness: patient oriented x3 Neck: Neck: Yes no lymphadenopathy Resp: Auscultation: clear to auscultation bilaterally Cardio: Rhythm: regular rhythm GI: Other: Rectal exam is so some tenderness on the left anterior perianal area with no obvious fluctuance, induration or redness; digital rectal exam did not reveal any induration within the anus nor any localized tenderness Palpation (GI): Soft to palpation, nontender and no guarding Neuro: General: patient oriented x3 DS: Data Data Completed and Pending Pending studies at discharge: Laboratory Results WBC 7.0 X10*3/uL (4.8-10.8) 06/16/23 10:51 RBC 4.45 X10*6/uL (4.20-5.50) 06/16/23 10:51 Hgb 13.0 g/dl (12.0-16.0) 06/16/23 10:51 Hct 38.7 % (37.0-47.0) 06/16/23 10:51 MCV 87.0 fL (80.0-98.0) 06/16/23 10:51 MCH 29.2 pg (27.0-33.0) 06/16/23 10:51 MCHC 33.6 g/dl (31.0-35.0) 06/16/23 10:51 RDW 12.9 % (11.0-16.0) 06/16/23 10:51 Plt Count 167 X10*3/uL (160-400) 06/16/23 10:51 MPV 10.4 fL (9.4-12.3) 06/16/23 10:51 Immature Gran % (Auto) 0.4 % (0.0-0.4) 06/14/23 18:39 Neut % (Auto) 67.3 % (45-73) 06/14/23 18:39 Lymph % (Auto) 21.6 % (20-40) 06/14/23 18:39 [place] % (Auto) 9.7 % (2-11) 06/14/23 18:39 Eos % (Auto) 0.7 % (0-4) 06/14/23 18:39 Baso % (Auto) 0.3 % (0-2) 06/14/23 18:39 Lymph # (Auto) 1.5 X10*3/uL (1.2-4.9) 06/14/23 18:39 [place] # (Auto) 0.7 X10*3/uL (0.1-1.2) 06/14/23 18:39 Eos # (Auto) 0.1 X10*3/uL (0.0-0.4) 06/14/23 18:39 Baso # (Auto) 0.0 X10*3/uL (0.0-0.2) 06/14/23 18:39 Abs Immat Gran (auto) 0.03 X10*3/uL (0.00-0.03) 06/14/23 18:39 Absolute Neuts (auto) 4.8 x10*3/uL (2.0-8.3) 06/14/23 18:39 Absolute Nucleated RBC 0.000 X10*3/uL (0.0-0.012) 06/16/23 10:51 Nucleated RBC % (auto) 0.0 /100WBC (0.0-0.2) 06/16/23 10:51 Sodium 142 mmol/L (135-145) 06/14/23 18:39 Potassium 4.1 mmol/L (3.3-5.1) 06/14/23 18:39 Chloride 106 mmol/L (96-108) 06/14/23 18:39 Carbon Dioxide 26 mmol/L (22-29) 06/14/23 18:39 Anion Gap 14 (12-20) 06/14/23 18:39 BUN 12 mg/dL (9-16) 06/14/23 18:39 Creatinine 0.77 mg/dL (0.5-1.4) 06/14/23 18:39 Estim Creat Clear Calc 124.5 06/14/23 18:39 Estimated GFR > 60 06/14/23 18:39 Random Glucose 108 mg/dL (60-115) 06/14/23 18:39 Lactic Acid 1.2 mmol/L (0.5-2.0) 06/15/23 00:43 Calcium 9.3 mg/dL (8.4-10.2) 06/14/23 18:39 Beta HCG, Quant < 2 mIU/mL 06/14/23 22:36 Urine Color Yellow 06/15/23 00:43 Urine Appearance Clear 06/15/23 00:43 Urine pH 6.0 (5.0-9.0) 06/15/23 00:43 Ur Specific [place] >= 1.030 (1.005-1.025) H 06/15/23 00:43 Urine Protein Negative mg/dL (Neg-Trace) 06/15/23 00:43 Urine Glucose (UA) Negative mg/dL (Negative) 06/15/23 00:43 Urine Ketones Negative mg/dL (Negative) 06/15/23 00:43 Urine Blood Trace (Negative) H 06/15/23 00:43 Urine Nitrite Negative (Negative) 06/15/23 00:43 Ur Leukocyte Esterase Negative (Negative) 06/15/23 00:43 Urine RBC 3-5 /HPF (0-2) H 06/15/23 00:43 Urine WBC 0-5 /HPF (0-5) 06/15/23 00:43 Ur Squamous Epith Cells 6-10 /HPF (0-2) 06/15/23 00:43 Urine Bacteria None Seen (None Seen) 06/15/23 00:43 Hyaline Casts 0-2 /LPF (0-2) 06/15/23 00:43 Urine Test NEGATIVE (NEGATIVE) 06/15/23 00:43 [place] species DNA Negative (Negative) 06/14/23 20:52 Chlam trachomat DNA PCR NOT DETECTED (Not Detect.) 06/14/23 20:52 [place] DNA Probe Negative (Negative) 06/14/23 20:52 N.gonorrhoeae DNA (PCR) NOT DETECTED (Not Detect.) 06/14/23 20:52 Trichomonas DNA Probe Negative (Negative) 06/14/23 20:52 Impressions Pelvic/Transvag US 06/14/23 21:07 IMPRESSION: There is a 2 cm complicated cyst in the right ovary that could represent a hemorrhagic cyst or corpus luteal cyst, recommend follow-up with pelvic ultrasound to 4-6 weeks. The right ovary is enlarged and there is free fluid adjacent to the right ovary, findings may be physiologic and related with the presence of the cyst, although the presence of partial torsion or torsion/detorsion cannot be excluded. Clinical correlation is needed; if there is high suspicious for acute ovarian pathology, then a shorter follow-up ultrasound is recommended. IUD in satisfactory positioning. Normal ultrasound appearance of the uterus and left ovary. Pelvis CT 06/14/23 23:20 IMPRESSION: Findings are most consistent with a 3.5 cm anal abscess centered in the sphincteric complex with possible fistulous tract extending beyond the anal sphincters. A detailed anatomy of the internal and external sphincters is not well obtained. Further evaluation with MR pelvis perianal fistula protocol is recommended. Labs on day of discharge: Preliminary micro results at discharge 06/15/23 01:19 Blood Culture - Preliminary Blood - Venous No growth after 48 hours. 06/15/23 00:43 Blood Culture - Preliminary Blood - Venous No growth after 48 hours. Discharge Plan Discharge Anticipated Discharge Date/Time: 06/16/23 10:46 Patient Disposition: Home, Self-Care Discharge Diagnosis: perineal pain Referrals: Julius Garcia MD [Physician] - 1 Week Discharge Medications: New amoxicillin-pot clavulanate 875-125 mg tablet 1 tab PO BID Qty: 12 0RF oxycodone-acetaminophen [Percocet] 5-325 mg tablet 1 tab PO Q4-6H PRN (Reason: pain) Qty: 15 0RF Rx Instructions: Partial Fill upon patient request. Continued cholecalciferol (vitamin D3) 50 mcg (2,000 unit) capsule 50 mcg PO DAILY dextroamphetamine-amphetamine [Adderall XR] 10 mg capsule,extended release 24hr 10 mg PO DAILY PRN (Reason: daytime sleepiness) Rx Instructions: Partial Fill upon patient request. acetaminophen [Tylenol] 325 mg capsule 650 mg PO Q6H PRN (Reason: pain) Qty: 30 0RF Liletta 20.4 mcg/24 hrs (8 yrs) 52 mg intrauterine device 1 device intrauterine DIRECTED Discontinued azithromycin 250 mg tablet 250 mg PO DAILY Rx Instructions: take 500 mg today (day 1), then 250 mg for 4 days (days 2-5) PO Discharge Orders: Discharge Order (Routine); Ordered 06/16/23 Ordered By: Julius Garcia Activity on Discharge: No heavy lifting Stand Alone Forms: Patient Portal Discharge page Activity Restrictions/Additional Instructions: hot sitz baths or warm soaks 3-4 times a day call office this week for ffup [phone] Care Plan Goals: control pain in perneum Health Concerns: possible abscess in perineal area Plan of Treatment: oral antibiotics pain meds Assessment: doing well Discharge Date/Time: 06/16/23 15:50
== END 2023-06-16 15:50 | disposition home or self-care (01) | DRG 254 ==
LOC: HO.ED 22:42 → HO.EDOVER 06-15 00:39 → HO.S3 06-15 11:18
PROVIDERS: Physician Assistant; Physician Assistant Medical; Admitting Provider Surgery; Emergency Provider Internal Medicine; PCP Physician Assistant; Visit Provider Surgery
DX: K61.0 Anal abscess (principal); R87.610 Atypical squamous cells of undetermined significance on cytologic smear of cervix (ASC-US); Z79.899 Other long term (current) drug therapy; Z87.891 Personal history of nicotine dependence
CPT/HCPCS: 0353U; 36415; 72193; 76830; 76856; 80048; 81001; 81025; 83605; 84702; 85025; 85027; 87040; 87070; 87205; 87480; 87510; 87660; 99221; 99285; J2270; J2405; J2543; J7120; Q9967

== ENCOUNTER → 2023-06-15 00:21 | Outpatient (BNV) | payer OTHER, SELFPAY | PROVIDERS: Admitting Provider Surgery; Emergency Provider Internal Medicine; PCP Physician Assistant; Visit Provider Surgery | DX: K61.0 Anal abscess (principal) | CPT/HCPCS: 10160; 99024; 99222; 99499 ==

== ENCOUNTER 2023-06-18 15:39 | Outpatient (AMB) | payer OTHER, SELFPAY ==
--- NOTE | 2023-06-18 16:00 | A.OFFPC_ITS ---
Intake Visit Reasons: f/u ADHD Allergies No Known Allergies Allergy (Verified 06/14/23 17:41) Tobacco use date assessed: 06/11/22 [facility] Medical History Vitamin D deficiency Anxiety Ulnar neuropathy Elevated blood pressure reading Family History Sister Bipolar 1 disorder Brother Autism Brother No problems noted. Mother Diabetes Father Diabetes Son No problems noted. Son No problems noted. Social History Household Members: Spouse and Children Housing: House Do you presently have visiting nurse or other home services: No Alcohol intake: current Alcohol intake frequency: holidays/special occasions only Patient Tobacco Use Status: Former Tobacco user Tobacco use type: Cigarette e-Cigarette/Vaping Use: Never Used Second Hand Smoke Exposure: Yes Substance Use Type: Marijuana service: No Current occupational status: employed Cognitive needs: No Hearing needs: No Vision needs: No Female Reproductive History Menstrual Age of Menarche: 10 Questionnaire Thrive Questionnaire Date Thrive assessed: 06/16/23 RATNA-7 AMB Questionnaire RATNA-7 Date RATNA - 7 assessed: 06/11/22 Source: Developed by Drs. Venkatesh Camara, Merlyn Ortiz, Kali Hamilton and colleagues, with an educational sully from [employer]. Physical exam (Primary Care) Tobacco/Smoking Status: Tobacco use Status Tobacco use date assessed 06/11/22 05/22/23 13:34 Patient Tobacco Use Status Former Tobacco user 06/16/23 14:32 Tobacco use type Cigarette 05/22/23 13:34 e-Cigarette/Vaping Use Never Used 05/22/23 13:34 Thrive Assessment: Date of Thrive Assessment Date Thrive assessed 06/16/23 06/18/23 09:18 Coding
[2023-06-18 16:02] VITALS: BP 128/78; PULSE 82; RESP 17; O2SAT 97; BMI 32.2
--- NOTE | 2023-06-18 16:03 | A.OFFPC_ITS ---
Vital Signs 06/18/23 16:02 Height 5 ft 9 in Weight 218 lb 2 oz BMI 32.2 BP 128/78 Blood Pressure Location Lt brachial Position Sitting Respiration 17 Pulse 82 Pulse Source Pulse Oximeter Pulse Oximetry (%) 97 Oxygen Delivery Method Room Air Intake Visit Reasons: f/u ADHD Intake Note: Patient is here for hospital discharge follow up. Patient was discharged from [ hospital name] on [date].3.5 cm anal abscess centered in the sphincteric complex with possible fistulous tract extending beyond the anal sphincters. 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: No Allergies No Known Allergies Allergy (Verified 06/18/23 16:28) Medication List - Last Reconciled 06/18/23 by Lencho Kim PA-C acetaminophen (Tylenol) 650 mg (2 x 325 mg) PO Q6H PRN amoxicillin-pot clavulanate 875-125 mg 1 tab PO BID cholecalciferol (vitamin D3) 50 mcg PO DAILY dextroamphetamine-amphetamine 10 mg ER (Adderall XR) 10 mg PO DAILY PRN levonorgestrel (Liletta) 1 device intrauterine DIRECTED oxycodone-acetaminophen 5-325 mg (Percocet) 1 tab PO Q4-6H PRN Tobacco use date assessed: 06/11/22 HPI f/u ADHD HPI Details Patient is a 38-year-old female here today for follow-up visit/hospital discharge follow-up. Patient's past medical history significant for generalized anxiety disorder, depression and ADHD. Hospital admission (fever and pelvic pain): Was recently hospitalized for an acute fever found to an anal abscess. CT pelv--> Findings are most consistent with a 3.5 cm anal abscess centered in the sphincteric complex with possible fistulous tract extending beyond the anal sphincters. Abscess was draining on its own and patient discharged with pain medication and antibiotics. Has follow-up with general surgeon. . ADHD: Has continued on Adderall 10 mg extended release on workdays and has found a significant improvement in her attention and focus along with productivity at work. She has been promoted at work. She denies any ill side effects from stimulant medication. .. Anxiety and depression: Has self discontinued SSRI therapy as she feels she did not need this medication anymore. She feels fine without any side effects of withdrawal. She feels she has very bad seasonal affective disorder and will implement a plan come this fall to combat her seasonal affective disorder. TCM TCM Information Date of Discharge 06/16/23 Discharged From [facility] Interactive Contact Date (Reference documentation from this date) 06/18/23 [facility] Medical History Vitamin D deficiency Anxiety Ulnar neuropathy Elevated blood pressure reading Family History Sister Bipolar 1 disorder Brother Autism Brother No problems noted. Mother Diabetes Father Diabetes Son No problems noted. Son No problems noted. Social History Household Members: Spouse and Children Housing: House Do you presently have visiting nurse or other home services: No Alcohol intake: current Alcohol intake frequency: holidays/special occasions only Patient Tobacco Use Status: Former Tobacco user Tobacco use type: Cigarette e-Cigarette/Vaping Use: Never Used Second Hand Smoke Exposure: Yes Substance Use Type: Marijuana service: No Current occupational status: employed Cognitive needs: No Hearing needs: No Vision needs: No Female Reproductive History Menstrual Age of Menarche: 10 Questionnaire PHQ-9 Over the last 2 weeks, how often have you been bothered by any of the following problems? 1. Little interest or pleasure in doing things: not at all 2. Feeling down, depressed, or hopeless: not at all 3. Trouble falling or staying asleep, or sleeping too much: not at all 4. Feeling tired or having little energy: not at all 5. Poor appetite or overeating: not at all 6. Feeling bad about yourself - or that you are a failure or have let yourself or your family down: not at all 7. Trouble concentrating on things, such as reading the newspaper or watching television: not at all 8. Moving or speaking so slowly that other people could have noticed. Or the opposite - being so fidgety or restless that you have been moving around a lot more than usual: not at all 9. Thoughts that you would be better off or of hurting yourself in some way: not at all Total score: 0 Depression Screening Interpretation: Negative Depression Screening Done: Yes 27537 - PHQ-9 Billing: Yes Source: Developed by Merlyn WilkersonW. Angel, Kali Hamilton and colleagues, with an educational sully from [employer]. Thrive Questionnaire Date Thrive assessed: 06/16/23 AUDIT C Alcohol Use Questionnaire (AUDIT-C) 1. How often do you have a drink containing alcohol?: Never 3. How often do you have six or more drinks on one occasion?: Never Total Score: 0 RATNA-7 AMB Questionnaire RATNA-7 Date RATNA - 7 assessed: 06/18/23 Feeling nervous, anxious, or on edge: 0 = Not at all Not being able to stop or control worryin = Not at all Worrying too much about different things: 0 = Not at all Trouble relaxin = Not at all Being so restless that it is hard to sit still: 0 = Not at all Becoming easily annoyed or irritable: 0 = Not at all Feeling afraid as if something awful might happen: 0 = Not at all Total RATNA-7 score (0-4 normal; 5-9 mild; 10-14 moderate; 15-21 severe): 0 Source: Developed by Drs. Venkatesh Camara, Merlyn Ortiz, Kali Hamilton and colleagues, with an educational sully from [employer]. RATNA-7 Assessment Billing RATNA-7 Assessment Tool: RATNA-7 Assessment 64716 Review of Systems Const Denies headache(s) Eyes Denies loss of vision ENT Denies vertigo, Denies dizziness, Denies headache(s) and Denies sore throat Card Denies chest pain, Denies leg edema and Denies lightheadedness Resp Denies cough, Denies hemoptysis and Denies wheezing GI Denies abdominal pain, Denies melena, Denies constipation, Denies diarrhea and Denies vomiting Denies urinary frequency, Denies dysuria and Denies urinary urgency Musc Denies arthralgias, Denies joint swelling, Denies numbness and Denies tingling Neuro Denies Abnormal speech present, Denies behavioral changes, Denies vertigo, Denies dizziness, Denies headache(s), Denies loss of vision, Denies memory loss, Denies numbness and Denies tingling Psych Denies anxiety, Denies behavioral changes, Denies depression, Denies memory loss and Denies panic attacks Domo/Lymph Denies easy bleeding and Denies easy bruising Aller/Immun Denies wheezing Physical exam (Primary Care) Vital Signs: Last Vital Signs Pulse 82 06/18/23 16:02 Resp 17 06/18/23 16:02 BP 128/78 06/18/23 16:02 Pulse Ox 97 06/18/23 16:02 Oxygen Delivery Method Room Air 06/18/23 16:02 BMI result Body Mass Index 32.2 Tobacco/Smoking Status: Tobacco use Status Tobacco use date assessed 06/11/22 06/18/23 16:09 Patient Tobacco Use Status Former Tobacco user 06/18/23 16:09 Tobacco use type Cigarette 06/18/23 16:09 e-Cigarette/Vaping Use Never Used 06/18/23 16:09 PHQ-9: PHQ-9 Score PHQ-9: Total score 0 06/18/23 16:33 Depression Screening Interpretation: Negative Thrive Assessment: Date of Thrive Assessment Date Thrive assessed 06/16/23 06/18/23 16:09 Const General: healthy appearing, no acute distress, alert and awake Nutritional Appearance: well nourished Orientation/consciousness: oriented to person, oriented to place and oriented to time HENMT Ears: TM's normal bilaterally General nose exam: Normal nasal mucous membranes and turbinates present Eyes Conjunctivae: conjunctivae normal Sclerae: sclerae normal Pupils: Equal, round and reactive pupils present Neck Neck: Yes no lymphadenopathy and Yes no JVD Thyroid: Thyroid normal Carotids: no bruits Resp Effort & Inspection: normal respiratory effort and not tachypneic Auscultation: no crackles, no rales, no rhonchi and no wheezes Cardio Rate: regular rate Rhythm: regular rhythm Heart sounds: no murmurs and normal S1 and S2 GI Palpation (GI): Soft to palpation, nontender, no hepatomegaly and no splenomegaly Auscultation: normal bowel sounds Skin General skin exam: no rashes or lesions noted and dry skin Neuro General: oriented to person, oriented to place and oriented to time Cranial nerves: Yes Equal, round and reactive pupils present Speech: No Abnormal speech present Gait exam (Neuro): Normal gait present Motor exam (neuro): no tremor noted Extrem Right upper extremity: full ROM Left upper extremity: full ROM Right lower extremity: full ROM; no edema Left lower extremity: full ROM; no edema Psych Mental Status: mental status grossly normal Speech and movement: Normal speech and movement present Affect: normal affect Attitude: cooperative Thought process: Normal thought process present Assessment and Plan Assessment & Plan (1) ADHD: Code(s): F90.9 - Attention-deficit hyperactivity disorder, unspecified type Qualifiers: Attention deficit-hyperactivity disorder type: predominantly inattentive Qualified Code(s): F90.0 - Attention-deficit hyperactivity disorder, predominantly inattentive type Plan: Patient has been started on Adderall 10 mg extended release and has noted a significant improvement in her attention and focus to detail on her job. She reports her coworkers have noticed as well and she has been able to be more productive work. (2) Anxiety: Code(s): F41.9 - Anxiety disorder, unspecified Plan: Anxiety now much better controlled , no off lexapro ( self discontinued.).. Now speaking with a mental health therapist as well. (3) Anal abscess: Code(s): K61.0 - Anal abscess Plan: During hospitalization CT pelvis done due to pelvic pain. She was found to have a draining abscess. General surgeon evaluated though did not need surgical treatment. Has follow-up with general surgeon this week. Was discharged home with antibiotics and pain medication and feels antibiotics have been very helpful. Coding Level of Care Code Est Pt Level 4 (91823) Diagnoses Attention deficit hyperactivity disorder (ADHD), predominantly inattentive type F90.0 Attention deficit-hyperactivity disorder type: predominantly inattentive Anxiety F41.9 Anal abscess K61.0 Additional Codes RATNA-7 Assessment Billing - RATNA-7 Assessment Tool: RATNA-7 Assessment [id number] ([id number])
== END 2023-06-18 16:47 | disposition home or self-care (01) ==
PROVIDERS: PCP Physician Assistant; Visit Provider Physician Assistant
DX: F90.0 Attention-deficit hyperactivity disorder, predominantly inattentive type (principal); F41.9 Anxiety disorder, unspecified; K61.0 Anal abscess
CPT/HCPCS: 99214

== ENCOUNTER 2023-06-20 15:24 | Outpatient (AMB) | payer OTHER, SELFPAY ==
--- NOTE | 2023-06-20 15:25 | A.OFFVIS_ITS ---
Intake Vital Signs 06/20/23 15:32 Height 5 ft 9 in Weight 219 lb BMI 32.3 Intake Visit Reasons: Possible abscess in perineal area, [facility] discharge Intake Note: This patient presents for [facility] ER follow-up for abscess in the perineal area. Patient c/o; reports pain, reports no draining, reports unable to sit, reports feels like it decreased in size but is still super painful. Clarifier Operator Required: No Custodial Laborer: Custodial Laborer offered & declined Accompanied by: Self / Same As Patient Allergies No Known Allergies Allergy (Verified 06/20/23 15:33) Medication List - Last Reconciled 06/20/23 by Julius Garcia MD acetaminophen (Tylenol) 650 mg (2 x 325 mg) PO Q6H PRN amoxicillin-pot clavulanate 875-125 mg 1 tab PO BID cholecalciferol (vitamin D3) 50 mcg PO DAILY dextroamphetamine-amphetamine 10 mg ER (Adderall XR) 10 mg PO DAILY PRN levonorgestrel (Liletta) 1 device intrauterine DIRECTED oxycodone-acetaminophen 5-325 mg (Percocet) 1 tab PO Q4-6H PRN HPI Possible abscess in perineal area, [facility] discharge HPI Details 38-year-old female here for follow-up fo r a question of a perineal abscess. I had admitted her to the hospital because of pain in the perineum last June 15, 2023. She had a CAT scan then showing what appeared to be a fluid collection in the intersphincteric complex at that time. I did multiple aspiration which did not reveal any abscess. She was discharged on June 16. She does state that she still feels some pain on the area although this is getting better. She denies any discharge. She is still finishing up with her course of antibiotics. She denies any fever. [facility] Medical History (Updated 06/20/23 @ 15:53 by Julius Garcia MD) Perianal abscess Vitamin D deficiency Anxiety Ulnar neuropathy Elevated blood pressure reading Family History Sister Bipolar 1 disorder Brother Autism Brother No problems noted. Mother Diabetes Father Diabetes Son No problems noted. Son No problems noted. Social History Household Members: Spouse and Children Housing: House Do you presently have visiting nurse or other home services: No Alcohol intake: current Alcohol intake frequency: holidays/special occasions only Patient Tobacco Use Status: Former Tobacco user Tobacco use type: Cigarette e-Cigarette/Vaping Use: Never Used Second Hand Smoke Exposure: Yes Substance Use Type: Marijuana service: No Current occupational status: employed Cognitive needs: No Hearing needs: No Vision needs: No Female Reproductive History Menstrual Age of Menarche: 10 Review of Systems Const Denies chills and Denies fever(s) Card Denies chest pain, Denies dyspnea and Denies dyspnea on exertion Resp Denies cough, Denies dyspnea and Denies dyspnea on exertion GI Denies hematochezia and Denies change in bowel habits Denies hematuria Musc Denies back pain and Denies limited range of motion Neuro Denies focal weakness and Denies convulsions Psych Denies depression and Denies mood swings Physical Exam Vital Signs: BMI result Body Mass Index 32.3 Const General: comfortable and no acute distress Resp Effort & Inspection: normal respiratory effort Cardio Rate: regular rate GI Other: Rectal exam - vague tenderness on the left perianal area with no obvious fluctuance, no redness, no discharge; anoscopy and digital exam done Palpation (GI): Soft to palpation and nontender Office Procedures Anoscopy She was in tommy-knife position. The anoscope was gently inserted. A full examination of the anal canal was done. I did not visualize any fluctuance redness or any internal fistulous opening. There was no bleeding or discharge. She did have mixed internal external hemorrhoids. Digital exam did not reveal any induration on the left side. There was no blood on the exam finger. She did not have any significant tenderness on palpation of the anal canal [id number] Assessment & Plan Assessment & Plan (1) Perianal abscess: Code(s): K61.0 - Anal abscess Plan: She had a fluid collection in the left intersphincteric area on CT scan. Multiple aspiration did not reveal any abscess. Clinically she feels much better. She is able to tolerate both anoscopy and digital exam without any problems This may have drained spontaneously as she does describe some this rectal drainage at that time. I will follow her closely in the office as she may require exam under anesthesia down the line if this persists. She understands the plan and is comfortable with this. She will see me again next week. Coding Level of Care Code Est Pt Level 3 (99023) Diagnoses Perianal abscess K61.0 CPT Codes Details - CPT: 00454-[id number] ([id number])
[2023-06-20 15:32] VITALS: BMI 32.3
== END 2023-06-20 15:52 | disposition home or self-care (01) ==
PROVIDERS: PCP Physician Assistant; Visit Provider Surgery
DX: K61.0 Anal abscess (principal); K64.8 Other hemorrhoids
CPT/HCPCS: 46600; 99213

== ENCOUNTER → 2023-06-20 15:24 | Outpatient (BNVA) | payer OTHER, SELFPAY | PROVIDERS: PCP Physician Assistant; Visit Provider Surgery | DX: K61.0 Anal abscess (principal); K64.4 Residual hemorrhoidal skin tags; K64.8 Other hemorrhoids | CPT/HCPCS: 46600 ==

== ENCOUNTER 2023-06-27 22:49 | Emergency (ER) | payer OTHER, SELFPAY ==
[2023-06-27 22:56] VITALS: BP 142/94; PULSE 99; RESP 16; TEMP 36.7; O2SAT 100; BMI 31.8
--- NOTE | 2023-06-28 01:34 | ED_ITS ---
HPI - General Adult General Chief complaint: Skin/Abscess/Foreign Body Stated complaint: 2 weeks ago: abscess has gotten worse Time Seen by Provider: 06/28/23 00:36 Source: patient Mode of arrival: ambulatory Limitations: no limitations History of Present Illness HPI narrative: Patient is a 30-year-old female who presents to the emergency department reporting persistent clean due to. Abscess. Reports that despite completion of course of antibiotics for pain persists. Denies fevers, chills, diarrhea, constipation, rectal discharge, hematochezia, melena, abnormal vaginal discharge. Related Data Home Medications Medication Instructions Recorded Confirmed levonorgestrel 20.4 mcg/24 hrs (8 1 device intrauterine DIRECTED 05/10/23 06/20/23 yrs) 52 mg intrauterine device (Liletta) cholecalciferol (vitamin D3) 50 50 mcg PO DAILY 06/15/23 06/20/23 mcg (2,000 unit) capsule dextroamphetamine-amphetamine ER 10 mg PO DAILY PRN daytime 06/15/23 06/20/23 10 mg 24hr capsule,extend release sleepiness (Adderall XR) Previous Rx's Medication Instructions Recorded acetaminophen 325 mg capsule 650 mg (2 x 325 mg) PO Q6H PRN 01/10/23 (Tylenol) pain #30 caps amoxicillin 875 mg-potassium 1 tab PO BID #12 tabs 06/15/23 clavulanate 125 mg tablet oxycodone-acetaminophen 5 mg-325 1 tab PO Q4-6H PRN pain #15 tabs 06/16/23 mg tablet (Percocet) oxycodone 5 mg tablet 5 mg PO Q6H PRN pain #10 tabs 06/28/23 Allergies Allergy/AdvReac Type Severity Reaction Status Date / Time No Known Allergies Allergy Verified 06/20/23 15:33 Review of Systems Review of Systems: Yes all other systems are reviewed and are negative PMFSH Past Medical History Attestation statement: The following information was validated with the patient. Source: old records reviewed Medical History Perianal abscess Vitamin D deficiency Anxiety Ulnar neuropathy Elevated blood pressure reading Family History Family History Sister Bipolar 1 disorder Brother Autism Brother No problems noted. Mother Diabetes Father Diabetes Son No problems noted. Son No problems noted. Social History Social History Household Members: Spouse and Children Housing: House Do you presently have visiting nurse or other home services: No Alcohol intake: current Alcohol intake frequency: holidays/special occasions only Patient Tobacco Use Status: Former Tobacco user Tobacco use type: Cigarette e-Cigarette/Vaping Use: Never Used Second Hand Smoke Exposure: Yes Substance Use Type: Marijuana Advance Directives: No Advance Directives Information Provided: No service: No Current occupational status: employed Cognitive needs: No Hearing needs: No Vision needs: No Physical Exam ED Vital Signs: Vital Signs - 24 hr 06/27/23 22:56 Temperature 98.0 F Pulse Rate 99 Respiratory Rate 16 Blood Pressure 142/94 H Pulse Oximetry 100 Oxygen Delivery Method Room Air BMI result Body Mass Index 31.8 Appearance: Alert.?Oriented to person, place and time. No acute distress.?Normal affect. Neck: Normal inspection.? Neck supple.?? CVS: Heart sounds normal. Normal heart rate and rhythm.? Pulses normal.?? Respiratory: No respiratory distress.? Lung sounds clear to auscultation bilaterally?? Abdomen: Soft and non-tender. Normoactive bowel sounds. Perineum: Palpable induration to the left of the rectum extending up the perineum. No external erythema, warmth, lesions ? Skin: Skin warm and dry.? Normal skin color.? Extremities: No lower extremity edema.? Neuro: Moves all extremities spontaneously. Sensation intact bilaterally. Ambulates with normal steady gait. Medical Decision Making Medical Decision Making MDM Narrative: Patient is a 38-year-old female who presents emergency department for evaluation of persistent pain to the perineum/rectum. Of note she was 1st seen 06/15/[address] revealing a fluid collection concerning for perianal abscess involving the sphincter was evaluated by Dr. Garcia general surgery who attempted needle aspiration but was unsuccessful despite multiple passes. She was discharged home on a course of Augmentin and followed up outpatient. She was re-evaluated outpatient 06/20/2023, per Dr. Garcia's note, anoscope did not reveal any abnormality on digital exam no palpable induration. He did advise that if her symptoms continue she may require further evaluation under anesthesia. At this time I do not see indication for repeat/emergent imaging, I do feel that she would be best suited to follow-up outpatient general surgery, however given her persistent pain unrelieved with Tylenol will send short course of oxycodone to pharmacy, advised that she will need to follow-up with their office advised to contact them tomorrow morning before the weekend to arrange for appropriate follow-up. Discussed strict return precautions. All questions answered. Stable for discharge. 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 This is a narcotic medication. It can be addictive. May make you drowsy. You should not drive, drink alcohol, or work while taking this medication As discussed please contact the general surgeon's office first thing tomorrow morning before the weekend to arrange for appropriate follow-up. You may return back to emergency department any new or worsening symptoms or concerns Prescriptions: New oxycodone 5 mg tablet 5 mg PO Q6H PRN (Reason: pain) Qty: 10 0RF Rx Instructions: Partial Fill upon patient request. No Action cholecalciferol (vitamin D3) 50 mcg (2,000 unit) capsule 50 mcg PO DAILY dextroamphetamine-amphetamine [Adderall XR] 10 mg capsule,extended release 24hr 10 mg PO DAILY PRN (Reason: daytime sleepiness) Rx Instructions: Partial Fill upon patient request. amoxicillin-pot clavulanate 875-125 mg tablet 1 tab PO BID Qty: 12 0RF oxycodone-acetaminophen [Percocet] 5-325 mg tablet 1 tab PO Q4-6H PRN (Reason: pain) Qty: 15 0RF Rx Instructions: Partial Fill upon patient request. acetaminophen [Tylenol] 325 mg capsule 650 mg PO Q6H PRN (Reason: pain) Qty: 30 0RF Liletta 20.4 mcg/24 hrs (8 yrs) 52 mg intrauterine device 1 device intrauterine DIRECTED Referrals: Lencho Kim PA-C [Primary Care Provider] - [place] Joy MD [Physician] -
== END 2023-06-28 01:57 | disposition home or self-care (01) ==
PROVIDERS: Emergency Provider Emergency Medicine Emergency Medical Services; PCP Physician Assistant
DX: K62.89 Other specified diseases of anus and rectum (principal)
CPT/HCPCS: 99282

== ENCOUNTER 2023-07-01 08:24 | Outpatient (AMB) | payer OTHER, SELFPAY ==
--- NOTE | 2023-07-01 08:26 | MHC.OFFVIS ---
Intake Vital Signs 07/01/23 08:30 Height 5 ft 9 in Weight 215 lb BMI 31.7 BP 131/90 H Blood Pressure Location Rt brachial Position Sitting Pulse 96 Intake Visit Reasons: Perineal pain - seen in ER 06/27 Intake Note: Patient here to f/u from ER visit on 06-28-23 for perineal abscess. Was prescribed a short course of oxycodone. Patient was last seen by Dr. Garcia on 06-20-23. Patient c/o: pain. Unable to sit comfortably. Sales Account Associate Required: No Accompanied by: Self / Same As Patient Allergies No Known Allergies Allergy (Verified 07/01/23 08:32) HPI HPI Comments History of Present Illness Details Patient has had three-week history of anorectal pain and discharge to her rectum/anus. Patient was admitted hospital for what was felt to be a perirectal abscess. She has been seen emergency department recently because of persistence of symptoms and CT scan demonstrated findings highly suggestive of a complex intra sphincteric abscess with fistula. Chart was reviewed and patient evaluated. Patient has never had such symptoms before. Denies any anal receptive practices. [facility] Medical History Perianal abscess Vitamin D deficiency Anxiety Ulnar neuropathy Elevated blood pressure reading Surgical History (Updated 07/01/23 @ 09:10 by [place] Joy MD) Perianal abscess Family History Sister Bipolar 1 disorder Brother Autism Brother No problems noted. Mother Diabetes Father Diabetes Son No problems noted. Son No problems noted. Social History Household Members: Spouse and Children Housing: House Do you presently have visiting nurse or other home services: No Alcohol intake: current Alcohol intake frequency: holidays/special occasions only Patient Tobacco Use Status: Former Tobacco user Tobacco use type: Cigarette e-Cigarette/Vaping Use: Never Used Second Hand Smoke Exposure: Yes Substance Use Type: Marijuana service: No Current occupational status: employed Cognitive needs: No Hearing needs: No Vision needs: No Female Reproductive History Menstrual Age of Menarche: 10 Physical Exam Vital Signs: Last Vital Signs Pulse 96 07/01/23 08:30 BP 131/90 H 07/01/23 08:30 BMI result Body Mass Index 31.7 GI Other: Abdomen is soft. Anorectal exam demonstrated left anorectal told tenderness. No obvious abscess demonstrated. Assessment & Plan Assessment & Plan (1) Perianal abscess: Code(s): K61.0 - Anal abscess Plan Based on the CT scan findings, and the patient having been seen by Dr. Garcia during her recent hospitalization, the current plan is to refer her back to him regarding this complex anorectal abscess with fistula. Arrangements were made for this. All questions answered. Coding Level of Care Code New Pt Level 4 (60715) Diagnoses Perianal abscess K61.0
[2023-07-01 08:30] VITALS: BP 131/90; PULSE 96; BMI 31.7
== END 2023-07-01 08:53 | disposition home or self-care (01) ==
PROVIDERS: PCP Physician Assistant; Visit Provider Surgery
DX: K61.0 Anal abscess (principal)
CPT/HCPCS: 99204

== ENCOUNTER → 2023-07-01 08:24 | Outpatient (BNVA) | payer OTHER, SELFPAY | PROVIDERS: PCP Physician Assistant; Visit Provider Surgery ==

== ENCOUNTER 2023-07-18 09:43 | Outpatient (AMB) | payer OTHER, SELFPAY ==
[2023-07-18 09:50] VITALS: BP 130/86; PULSE 85; O2SAT 99; BMI 31.3
--- NOTE | 2023-07-18 09:50 | A.OFFPC_ITS ---
Vital Signs 07/18/23 09:50 Height 5 ft 9 in Weight 212 lb BMI 31.3 BP 130/86 Blood Pressure Location Lt brachial Position Sitting Pulse 85 Pulse Source Pulse Oximeter Pulse Oximetry (%) 99 Oxygen Delivery Method Room Air Intake Visit Reasons: HDF 07/03 perianal abscess [employer] Scientific Aid: Not Required per policy Accompanied by: Self / Same As Patient Allergies acetazolamide Adverse Reaction (Intermediate, Verified 07/18/23 10:06) Anxiety Medication List - Last Reconciled 07/18/23 by Lencho Kim PA-C acetaminophen (Tylenol) 650 mg (2 x 325 mg) PO Q6H PRN acetazolamide ER mg PO cholecalciferol (vitamin D3) 50 mcg PO DAILY dextroamphetamine-amphetamine 10 mg ER (Adderall XR) 10 mg PO DAILY PRN levonorgestrel (Liletta) 1 device intrauterine DIRECTED topiramate 25 mg PO BID Tobacco use date assessed: 07/18/23 Dental Screening Dental Screen Date: 07/18/23 Did you have a dental visit in the last 12 months?: Yes Did you have a dental problem in the last 6 months where you did not have access to dental care?: No Was dental information given to patient?: Patient has dentist HPI HDF 07/03 perianal abscess HPI Details Patient is a 38-year-old female here today for follow-up visit/hospital discharge follow-up. Patient's past medical history significant for generalized anxiety disorder, depression and ADHD. Recently admitted to [facility] for headaches and found to have bilateral papilledema. She did not have any focal neurological deficits Was diagnosed with IIH- underwent a Lumbar puncture noted high pressures. She did undergo CT and MRI of brain. Neurology at [facility] started patient on acetazolamide and Topamax. Unfortunately had adverse reaction to acetazolamide unable to tolerate. She was told that she needed Neurology and Ophthalmology outpatient evaluation. Perirectal abcess: Has resolved. -Interval history-> Was recently hospit alized for an acute fever found to an anal abscess. CT pelv--> Findings are most consistent with a 3.5 cm anal abscess centered in the sphincteric complex with possible fistulous tract extending beyond the anal sphincters. Abscess was draining on its own and patient discharged with pain medication and antibiotics. Has follow-up with general surgeon. . ADHD: Has continued on Adderall 10 mg extended release on workdays and has found a significant improvement in her attention and focus along with productivity at work. She has been promoted at work. She denies any ill side effects from stimulant medication. .. REPLACED BY [facility] Medical History Perianal abscess Vitamin D deficiency Anxiety Ulnar neuropathy Elevated blood pressure reading Surgical History Perianal abscess Family History Sister Bipolar 1 disorder Brother Autism Brother No problems noted. Mother Diabetes Father Diabetes Son No problems noted. Son No problems noted. Social History Household Members: Spouse and Children Housing: House Do you presently have visiting nurse or other home services: No Alcohol intake: current Alcohol intake frequency: holidays/special occasions only Patient Tobacco Use Status: Former Tobacco user Tobacco use type: Cigarette e-Cigarette/Vaping Use: Never Used Second Hand Smoke Exposure: Yes Substance Use Type: Marijuana service: No Current occupational status: employed Cognitive needs: No Hearing needs: No Vision needs: Yes Female Reproductive History Menstrual Age of Menarche: 10 Questionnaire Thrive Questionnaire Date Thrive assessed: 06/16/23 RATNA-7 AMB Questionnaire RATNA-7 Date RATNA - 7 assessed: 06/18/23 Source: Developed by Drs. Venkatesh Camara, Merlyn Ortiz, Kali Hamilton and colleagues, with an educational sully from [employer]. Review of Systems Const Denies headache(s) Eyes Denies loss of vision ENT Denies vertigo, Denies dizziness, Denies headache(s) and Denies sore throat Card Denies chest pain, Denies leg edema and Denies lightheadedness Resp Denies cough, Denies hemoptysis and Denies wheezing GI Denies abdominal pain, Denies melena, Denies constipation, Denies diarrhea and Denies vomiting Denies urinary frequency, Denies dysuria and Denies urinary urgency Musc Denies arthralgias, Denies joint swelling, Denies numbness and Denies tingling Neuro Denies Abnormal speech present, Denies behavioral changes, Denies vertigo, Denies dizziness, Denies headache(s), Denies loss of vision, Denies memory loss, Denies numbness and Denies tingling Psych Denies anxiety, Denies behavioral changes, Denies depression, Denies memory loss and Denies panic attacks Domo/Lymph Denies easy bleeding and Denies easy bruising Aller/Immun Denies wheezing Physical exam (Primary Care) Vital Signs: Last Vital Signs Pulse 85 07/18/23 09:50 BP 130/86 07/18/23 09:50 Pulse Ox 99 07/18/23 09:50 Oxygen Delivery Method Room Air 07/18/23 09:50 BMI result Body Mass Index 31.3 Tobacco/Smoking Status: Tobacco use Status Tobacco use date assessed 07/18/23 07/18/23 09:56 Patient Tobacco Use Status Former Tobacco user 07/18/23 09:56 Tobacco use type Cigarette 07/18/23 09:56 e-Cigarette/Vaping Use Never Used 07/18/23 09:56 Thrive Assessment: Date of Thrive Assessment Date Thrive assessed 06/16/23 07/18/23 09:56 Const General: healthy appearing, no acute distress, alert and awake Nutritional Appearance: well nourished Orientation/consciousness: oriented to person, oriented to place and oriented to time HENMT Ears: TM's normal bilaterally General nose exam: Normal nasal mucous membranes and turbinates present Eyes Conjunctivae: conjunctivae normal Sclerae: sclerae normal Pupils: Equal, round and reactive pupils present Neck Neck: Yes no lymphadenopathy and Yes no JVD Thyroid: Thyroid normal Carotids: no bruits Resp Effort & Inspection: normal respiratory effort and not tachypneic Auscultation: no crackles, no rales, no rhonchi and no wheezes Cardio Rate: regular rate Rhythm: regular rhythm Heart sounds: no murmurs and normal S1 and S2 GI Palpation (GI): Soft to palpation, nontender, no hepatomegaly and no splenomegaly Auscultation: normal bowel sounds Skin General skin exam: no rashes or lesions noted and dry skin Neuro General: oriented to person, oriented to place and oriented to time Cranial nerves: Yes Equal, round and reactive pupils present Speech: No Abnormal speech present Gait exam (Neuro): Normal gait present Motor exam (neuro): no tremor noted Extrem Right upper extremity: full ROM Left upper extremity: full ROM Right lower extremity: full ROM; no edema Left lower extremity: full ROM; no edema Psych Mental Status: mental status grossly normal Speech and movement: Normal speech and movement present Affect: normal affect Attitude: cooperative Thought process: Normal thought process present Assessment and Plan Assessment & Plan (1) IIH (idiopathic intracranial hypertension): Code(s): G93.2 - Benign intracranial hypertension Plan: As per HPI patient recently seen her eye doctor found to have bilateral papilledema. She was urgently seen at [facility] and underwent CT, MRI brain. Lumbar puncture showing high pressures. Patient was diagnosed with idiopathic intracranial hypertension. She was started on Topamax 25 b.i.d. and acetazolamide. Unfortunately had side effect to acetazolamide that was intolerable for patient. She would would like to speak with Neurology about other treatment. Will refer to Neurology (2) Perianal abscess: Code(s): K61.0 - Anal abscess Plan: Has resolved (3) Skin lesion of face: Code(s): L98.9 - Disorder of the skin and subcutaneous tissue, unspecified Plan: Has noted a skin lesion over the right nasal bridge over last several years that has gotten bigger over the last several months. She would like to see a sausage cutter as she does report a lot of sun exposure. Orders: Referrals Neurology Referral G93.2 - Benign intracranial hypertension Dermatology Referral L98.9 - Disorder of the skin and subcutaneous tissue, unspecified Medications: New topiramate 25 mg PO BID 30 days 60 tabs 3RF G93.2 - Benign intracranial hypertension Changed From dextroamphetamine-amphetamine 10 mg ER (Adderall XR) Partial Fill upon patient request. 10 mg PO DAILY PRN daytime sleepiness F90.0 - Attention-deficit hyperactivity disorder, predominantly inattentive type To dextroamphetamine-amphetamine 10 mg ER (Adderall XR) Partial Fill upon patient request. 10 mg PO DAILY 30 days 30 caps 0RF daytime sleepiness F90.0 - Attention-deficit hyperactivity disorder, predominantly inattentive type Coding Level of Care Code Est Pt Level 4 (36478) Diagnoses IIH (idiopathic intracranial hypertension) G93.2 Perianal abscess K61.0 Skin lesion of face L98.9
== END 2023-07-18 10:25 | disposition home or self-care (01) ==
PROVIDERS: PCP Physician Assistant; Visit Provider Physician Assistant
DX: G93.2 Benign intracranial hypertension (principal); K61.0 Anal abscess; L98.9 Disorder of the skin and subcutaneous tissue, unspecified
CPT/HCPCS: 99214

== ENCOUNTER 2023-08-07 07:32 | Outpatient (AMB) | payer OTHER, SELFPAY ==
--- NOTE | 2023-08-07 07:36 | A.OFFVIS_ITS ---
Intake Vital Signs 08/07/23 07:38 BP 120/80 Intake Visit Reasons: Colpo follow up Allergies acetazolamide Adverse Reaction (Intermediate, Verified 07/18/23 10:06) Anxiety HPI HPI Comments History of Present Illness Details Presenting post colpo for follow-up. The patient is doing well with no complaints. The pathology showed the following: A. Endocervix, curettage: Endocervical mucosa within normal limits; mucoinflammatory material. B. Cervix, 1 o'clock, biopsy: - Low grade squamous intraepithelial les ion (VERENA 1). - Inflamed endocervical mucosa. C. Cervix, 3 o'clock, biopsy: Inflamed endocervical and squamous epithelium with reactive changes. D. Cervix, 4 o'clock, biopsy: Inflamed endocervical and squamous epithelium with reactive changes. E. Cervix, 5 o'clock, biopsy: Inflamed endocervical mucosa with reactive changes; squamous epithelium within normal limits. F. Cervix, 12 o'clock, biopsy: Mildly inflamed cervical transformation zone mucosa with reactive changes. COMMENT: The findings are concordant with the patient's recent Pap/cytology specimen ([id number]; ASCUS with positive HPV) - slide reviewed [facility] Medical History Vitamin D deficiency Anxiety Ulnar neuropathy Elevated blood pressure reading Surgical History Perianal abscess Family History Sister Bipolar 1 disorder Brother Autism Brother No problems noted. Mother Diabetes Father Diabetes Son No problems noted. Son No problems noted. Social History Household Members: Spouse and Children Housing: House Do you presently have visiting nurse or other home services: No Alcohol intake: current Alcohol intake frequency: holidays/special occasions only Patient Tobacco Use Status: Former Tobacco user Tobacco use type: Cigarette e-Cigarette/Vaping Use: Never Used Second Hand Smoke Exposure: Yes Substance Use Type: Marijuana service: No Current occupational status: employed Cognitive needs: No Hearing needs: No Vision needs: Yes Female Reproductive History Menstrual Age of Menarche: 10 Review of Systems Const All systems reviewed & are unremarkable except as noted in HPI and below Reports as per HPI and Reports no additional complaints GI Reports no additional complaints Reports no additional complaints Physical Exam Vital Signs: Last Vital Signs BP 120/80 08/07/23 07:38 Assessment & Plan Assessment & Plan (1) Dysplasia of cervix, low grade (VERENA 1): Code(s): N87.0 - Mild cervical dysplasia Plan: Discussed with the patient the pathology results of the colposcopy biopsies & endocervical curettage ( mild dysplasia-VERENA 1). Discussed with the patient the sensitivity specificity, positive and negative predictive value in detecting cervical cancer in addition discussed the regression, persistence and progression rates. Recommended co-testing in 12 months, if cytology and or HPV are abnormal will proceed was colposcopy biopsy and endocervical curettage. Instructions given to the patient to schedule a co test appointment in 1 year. All questions answered the patient verbalized understanding. Coding Level of Care Code Est Pt Level 3 (94993) Diagnoses Dysplasia of cervix, low grade (VERENA 1) N87.0
[2023-08-07 07:38] VITALS: BP 120/80
== END 2023-08-07 07:44 | disposition home or self-care (01) ==
PROVIDERS: PCP Physician Assistant; Visit Provider Obstetrics & Gynecology
DX: N87.0 Mild cervical dysplasia (principal)
CPT/HCPCS: 99213

== ENCOUNTER → 2023-08-07 07:32 | Outpatient (BNVA) | payer OTHER, SELFPAY | PROVIDERS: PCP Physician Assistant; Visit Provider Obstetrics & Gynecology ==

== ENCOUNTER 2023-08-26 08:08 | Outpatient (AMB) | payer OTHER, SELFPAY ==
--- NOTE | 2023-08-26 08:37 | AM.OFFWIN_ITS ---
Intake Vital Signs 08/26/23 08:39 Height 5 ft 9 in Weight 213 lb 2 oz BMI 31.5 BP 128/64 Blood Pressure Location Rt brachial Position Sitting Pulse 67 Pulse Source Pulse Oximeter Temp 97.9 F Temp Source Oral Pulse Oximetry (%) 98 Oxygen Delivery Method Room Air Intake Visit Reasons: EP Poison lary everywhere [phone] Intake Note: Pt presents to the office today for c/o poison lary that started 2 days ago. 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 Pt states it is very itchy, and anais nful. 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 Awoke the next day with itching and rash that has progressively gotten worse Has suffered with similar in the past, responded well to prednisone Denies shortness of breath, difficulty breathing, difficulty swallowing PFSH Medical History Vitamin D deficiency Anxiety Ulnar neuropathy Elevated blood pressure reading Surgical History Perianal abscess Family History Sister Bipolar 1 disorder Brother Autism Brother No problems noted. Mother Diabetes Father Diabetes Son No problems noted. Son No problems noted. Social History Household Members: Spouse and Children Housing: House Do you presently have visiting nurse or other home services: No Alcohol intake: current Alcohol intake frequency: holidays/special occasions only Patient Tobacco Use Status: Former Tobacco user Tobacco use type: Cigarette e-Cigarette/Vaping Use: Never Used Second Hand Smoke Exposure: Yes Substance Use Type: Marijuana service: No Current occupational status: employed Cognitive needs: No Hearing needs: No Vision needs: Yes Female Reproductive History Menstrual Age of Menarche: 10 Review of Systems Const All systems reviewed & are unremarkable except as noted in HPI and below Physical Exam Vital Signs: Last Vital Signs Temp 97.9 F 08/26/23 08:39 Pulse 67 08/26/23 08:39 BP 128/64 08/26/23 08:39 Pulse Ox 98 08/26/23 08:39 Oxygen Delivery Method Room Air 08/26/23 08:39 BMI result Body Mass Index 31.5 General: awake, alert, oriented. Answers questions appropriately. Fully engaged in examination. Skin: Erythematous, papular rash to left pinna, face around the nose and upper lip, both hands. Patient declined genital exam. HEENT: Normocephalic. Hearing intact. Cardiac: External chest normal in appearance. Respiratory: No cough, audible wheezing or stridor. Abdomen: without gross distension. MS: No obvious swelling or deformities. Neurological: Oriented to person, place, time and situation. Thought process intact. No gait abnormalities appreciated. Psychiatric: Appropriate mood and affect. Good judgment and insight. Assessment & Plan Assessment & Plan (1) Poison lary dermatitis: Code(s): L23.7 - Allergic contact dermatitis due to plants, except food Plan Prednisone 50 mg p.o. daily x5 days Hydroxyzine 20 p.o. t.i.d. Apply ice as needed for itching Follow up with pcp or return to clinic for any new or worsening symptoms Medications: New prednisone 50 mg PO DAILY 5 tabs 0RF hydroxyzine HCl 25 mg PO TID PRN 20 tabs 0RF itching Coding Level of Care Code Est Pt Level 3 (70176) Diagnoses Poison lary dermatitis L23.7
[2023-08-26 08:39] VITALS: BP 128/64; PULSE 67; TEMP 36.6; O2SAT 98; BMI 31.5
== END 2023-08-26 09:39 | disposition home or self-care (01) ==
PROVIDERS: PCP Physician Assistant; Visit Provider Registered Nurse Emergency
DX: L23.7 Allergic contact dermatitis due to plants, except food (principal)
CPT/HCPCS: 99213

== ENCOUNTER 2023-08-29 07:20 | Outpatient (REF) | payer OTHER, SELFPAY ==
--- NOTE | ~2023-08-29 | MR_ITS ---
EXAMINATION: MR SHOULDER WITHOUT CONTRAST, LEFT CLINICAL INFORMATION: Rotator cuff tear COMPARISON: None available. TECHNIQUE: MRI of the shoulder without contrast was performed on a high-field scanner. FINDINGS: ROTATOR CUFF: Intact. No muscle atrophy or fatty infiltration. BICEPS: Normal. CORACOACROMIAL ARCH: The undersurface of the acromion is curved with no subacromial spur. The acromioclavicular joint is normal. LABRUM/CAPSULE: Normal. GLENOHUMERAL JOINT/MARROW: Normal. MR/MR shoulder LT wo con IMPRESSION: Normal MRI of the left shoulder
== END 2023-08-29 07:21 | disposition home or self-care (01) ==
LOC: HO.MRI 07:20
PROVIDERS: PCP Physician Assistant; Visit Provider Physician Assistant
DX: M75.102 Unspecified rotator cuff tear or rupture of left shoulder, not specified as traumatic (principal)
CPT/HCPCS: 73221

== ENCOUNTER 2023-09-19 15:35 | Outpatient (AMB) | payer OTHER, SELFPAY ==
[2023-09-19 15:45] VITALS: BP 122/84; PULSE 92; O2SAT 99; BMI 30.6
--- NOTE | 2023-09-19 15:45 | A.OFFPC_ITS ---
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 Required: No Accompanied by: Self / Same As Patient Allergies acetazolamide Adverse Reaction (Intermediate, Verified 09/19/23 16:10) Anxiety Medication List - Last Reconciled 09/19/23 by Lencho Kim PA-C acetaminophen (Tylenol) 650 mg (2 x 325 mg) PO Q6H PRN cholecalciferol (vitamin D3) 50 mcg PO DAILY dextroamphetamine-amphetamine 10 mg ER (Adderall XR) 10 mg PO DAILY 30 days hydroxyzine HCl 25 mg PO TID PRN levonorgestrel (Liletta) 1 device intrauterine DIRECTED topiramate 25 mg PO BID 30 days Tobacco use date assessed: 07/18/23 Dental Screening Dental Screen Date: 07/18/23 HPI f/u ADHD HPI Details Patient is a 38-year-old female here today for a follow-up. Patient's past medical history significant for generalized anxiety disorder, depression and ADHD. Was diagnosed with IIH-was diagnosed spring at [facility]--> underwent a Lumbar puncture noted high pressures. She did undergo CT and MRI of brain. Neurology at [facility] started patient on acetazolamide and Topamax. Unfortunately had adverse reaction to acetazolamide unable to tolerate. Has followed up with ophthomology and papilla edema has significantly reduced. Has also followed up with [facility] neurology 4 months patient on higher dose of Topamax 50 mg b.i.d.. . ADHD: Has continued on Adderall 10 mg extended release on workdays and has found a significant improvement in her attention and focus along with productivity at work. She has been promoted at work. She denies any ill side effects from stimulant medication. .. Left shoulder pain: Has done physical therapy and has tried NSAIDs without significant relief. Has been following [facility] and has gotten MRI of the left shoulder which was completely normal. Unfortunately continues to some pain with range of motion and difficulty with lying on her left side. Unclear etiology at this time and will follow up with [facility]. [facility] Medical History Vitamin D deficiency Anxiety Ulnar neuropathy Elevated blood pressure reading Surgical History Perianal abscess Family History Sister Bipolar 1 disorder Brother Autism Brother No problems noted. Mother Diabetes Father Diabetes Son No problems noted. Son No problems noted. Social History Household Members: Spouse and Children Housing: House Do you presently have visiting nurse or other home services: No Alcohol intake: current Alcohol intake frequency: holidays/special occasions only Patient Tobacco Use Status: Former Tobacco user Tobacco use type: Cigarette e-Cigarette/Vaping Use: Never Used Second Hand Smoke Exposure: Yes Substance Use Type: Marijuana service: No Current occupational status: employed Cognitive needs: No Hearing needs: No Vision needs: Yes Female Reproductive History Menstrual Age of Menarche: 10 Questionnaire Thrive Questionnaire Date Thrive assessed: 06/16/23 RATNA-7 AMB Questionnaire RATNA-7 Date RATNA - 7 assessed: 06/18/23 Source: Developed by Drs. Venkatesh Camara, Merlyn Ortiz, Kali Hamilton and colleagues, with an educational sully from [employer]. Review of Systems Const Denies headache(s) Eyes Denies loss of vision ENT Denies vertigo, Denies dizziness, Denies headache(s) and Denies sore throat Card Denies chest pain, Denies leg edema and Denies lightheadedness Resp Denies cough, Denies hemoptysis and Denies wheezing GI Denies abdominal pain, Denies melena, Denies constipation, Denies diarrhea and Denies vomiting Denies urinary frequency, Denies dysuria and Denies urinary urgency Musc Denies arthralgias, Denies joint swelling, Denies numbness and Denies tingling Neuro Denies Abnormal speech present, Denies behavioral changes, Denies vertigo, Denies dizziness, Denies headache(s), Denies loss of vision, Denies memory loss, Denies numbness and Denies tingling Psych Denies anxiety, Denies behavioral changes, Denies depression, Denies memory loss and Denies panic attacks Domo/Lymph Denies easy bleeding and Denies easy bruising Aller/Immun Denies wheezing Physical exam (Primary Care) Vital Signs: Last Vital Signs Pulse 92 09/19/23 15:45 BP 122/84 09/19/23 15:45 Pulse Ox 99 09/19/23 15:45 Oxygen Delivery Method Room Air 09/19/23 15:45 BMI result Body Mass Index 30.6 Tobacco/Smoking Status: Tobacco use Status Tobacco use date assessed 07/18/23 09/19/23 15:46 Patient Tobacco Use Status Former Tobacco user 09/19/23 15:46 Tobacco use type Cigarette 09/19/23 15:46 e-Cigarette/Vaping Use Never Used 09/19/23 15:46 Thrive Assessment: Date of Thrive Assessment Date Thrive assessed 06/16/23 09/19/23 15:46 Const General: healthy appearing, no acute distress, alert and awake Nutritional Appearance: well nourished Orientation/consciousness: oriented to person, oriented to place and oriented to time HENMT Ears: TM's normal bilaterally General nose exam: Normal nasal mucous membranes and turbinates present Eyes Conjunctivae: conjunctivae normal Sclerae: sclerae normal Pupils: Equal, round and reactive pupils present Neck Neck: Yes no lymphadenopathy and Yes no JVD Thyroid: Thyroid normal Carotids: no bruits Resp Effort & Inspection: normal respiratory effort and not tachypneic Auscultation: no crackles, no rales, no rhonchi and no wheezes Cardio Rate: regular rate Rhythm: regular rhythm Heart sounds: no murmurs and normal S1 and S2 GI Palpation (GI): Soft to palpation, nontender, no hepatomegaly and no splenomegaly Auscultation: normal bowel sounds Skin General skin exam: no rashes or lesions noted and dry skin Neuro General: oriented to person, oriented to place and oriented to time Cranial nerves: Yes Equal, round and reactive pupils present Speech: No Abnormal speech present Gait exam (Neuro): Normal gait present Motor exam (neuro): no tremor noted Extrem Right upper extremity: full ROM Left upper extremity: full ROM Right lower extremity: full ROM; no edema Left lower extremity: full ROM; no edema Psych Mental Status: mental status grossly normal Speech and movement: Normal speech and movement present Affect: normal affect Attitude: cooperative Thought process: Normal thought process present Assessment and Plan Assessment & Plan (1) IIH (idiopathic intracranial hypertension): Code(s): G93.2 - Benign intracranial hypertension Plan: As per HPI patient recently seen her eye doctor found to have resolving bilateral papilledema. She is also followed up with [facility] neurologist whom advised on increasing Topamax 50 b.i.d.. Of note was not able to tolerate acetazolamide. She reports she is feeling well though does have tolerable side effects from increase of Topamax dose . (2) ADHD: Code(s): F90.9 - Attention-deficit hyperactivity disorder, unspecified type Qualifiers: Attention deficit-hyperactivity disorder type: predominantly inattentive Qualified Code(s): F90.0 - Attention-deficit hyperactivity disorder, predominantly inattentive type Plan: Patient doing quite well with her attention and focus on detailed tasks at work. She continues on p.r.n. use of Adderall 10 mg without side effect. Medications: New topiramate 50 mg PO BID 60 tabs 3RF 30 days G93.2 - Benign intracranial hypertension Refilled dextroamphetamine-amphetamine 10 mg ER (Adderall XR) Partial Fill upon patient request. 10 mg PO DAILY 30 caps 0RF 30 days F90.0 - Attention-deficit hyperactivity disorder, predominantly inattentive type Discontinued topiramate Discontinued Reason: Doctor's Order 25 mg PO BID 30 days 60 tabs 3RF G93.2 - Benign intracranial hypertension Coding Level of Care Code Est Pt Level 4 (96772) Diagnoses IIH (idiopathic intracranial hypertension) G93.2 Attention deficit hyperactivity disorder (ADHD), predominantly inattentive type F90.0 Attention deficit-hyperactivity disorder type: predominantly inattentive
== END 2023-09-19 16:33 | disposition home or self-care (01) ==
PROVIDERS: PCP Physician Assistant; Visit Provider Physician Assistant
DX: G93.2 Benign intracranial hypertension (principal); F90.0 Attention-deficit hyperactivity disorder, predominantly inattentive type
CPT/HCPCS: 99214

== ENCOUNTER 2023-12-17 14:16 | Outpatient (AMB) | payer OTHER, SELFPAY ==
--- NOTE | 2023-12-17 15:02 | A.OFFVIS_ITS ---
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 PMH includes obesity (BMI 30), ADHD. Pt reports in June 2023, she had an eye exam d/t onset of headache which she f elt was d/t eye strain (she had similar headache from eye strain when in college in her late 20s). Case Finishing Machine Adjuster noted fely papilledema and referred pt to ophthalmology, [facility] in [facility]) who referred her to [facility] ER. In the ER, Brain MRI w/wo showed mal brain. Narrowing at the junctions of the bilateral transverse and sigmoid sinuses, CBC/CMP/Lyme- NL, ESR 23 sl elevated, CRP1.1 H. LP (in left sided position): OP was 41 cmH2O w/ normal baseline CSF studies. She was started on Acetazolamide CR 500mg BID and Topiramate 25mg bid together while in the hosp. The Acetazolamide caused respiratory diff, racing HR, anxiety, initially felt this was anxiety but then realized she was having SOB. The Topiramate was then increased to 50mg bid, which she stopped in mid-October 2 weeks prior to her last eye exam, d/t increased dose caused cognitive s/s- word finding difficulties, mood changes- depressed mood, passive SI- since resolved. Notes topiramate did help her to lose some weight and to stop alcohol use. Last eye exam on 11/28/23- feyl improved papilledema. Notes recently started escitalopram 10mg qd for mood. Prior to this, she was not having headaches, migraines, diplopia, tinnitus. 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 While on Acetazolamide and topiramate- she would see some aura type visuals only at night- these have resolved. She denies any current visual difficulties w/ her new glasses prescription. Denies headaches, tinnitus, diplopia, nasal drng. Denies rashes, swelling. [facility] Medical History Vitamin D deficiency Anxiety Ulnar neuropathy Elevated blood pressure reading Surgical History Perianal abscess Family History Sister Bipolar 1 disorder Brother Autism Schizophrenia Asperger syndrome Brother No problems noted. Mother Diabetes Father Diabetes Son No problems noted. Son No problems noted. Social History Household Members: Spouse and Children Housing: House Do you presently have visiting nurse or other home services: No Alcohol intake: current Alcohol intake frequency: holidays/special occasions only Patient Tobacco Use Status: Former Tobacco user Tobacco use type: Cigarette e-Cigarette/Vaping Use: Never Used Second Hand Smoke Exposure: Yes Substance Use Type: Marijuana service: No Current occupational status: employed Cognitive needs: No Hearing needs: No Vision needs: Yes Female Reproductive History Menstrual Age of Menarche: 10 Physical Exam Vital Signs: Last Vital Signs Pulse 72 12/17/23 15:03 BP 124/90 H 12/17/23 15:03 Pulse Ox 96 12/17/23 15:03 Oxygen Delivery Method Room Air 12/17/23 15:03 BMI result Body Mass Index 30.2 Const Orientation/consciousness: patient oriented x3 Resp Effort & Inspection: normal respiratory effort and able to speak in complete sentences Neuro General: patient oriented x3 Cranial nerves: Yes CN's II-XII intact bilaterally Cognition (Neuro): normal cognition Gait exam (Neuro): Normal gait present Motor exam (neuro): 5/5 motor strength present throughout Deep tendon reflexes (DTR's): Right triceps reflex intensity grade: 2+, Left triceps reflex intensity grade: 2+, Rt Biceps (C5, C6): 2+, Left biceps reflex intensity grade: 2+, Right brachioradialis reflex intensity grade: 2+, Left brachioradialis reflex intensity grade: 2+, Right patellar reflex intensity grade: 2+ and Left patellar reflex intensity grade: 2+ Coordination: [id number] test normal, tandem gait normal and Romberg test negative Pupils: Normal pupillary reactivity/response: bilateral Psych Appearance: grossly normal Mental Status: mental status grossly normal Speech and movement: Normal speech and movement present Affect: normal affect Attitude: cooperative Thought process: Normal thought process present Results Reviewed Results Reviewed: 07/03/2023 20:43 RESULT: MRI Brain W+W/O Contrast MRI Brain W+W/O Contrast INDICATION / CLINICAL QUESTION: Reason: Other:; Bilateral Papilledema; Clinical Question(s): Other:; Idiopathic intracranial htn; Order Comment: Please see Reference Text for complete list of contraindications Other: TECHNIQUE: MRI of the brain was performed with and without contrast utilizing sagittal and axial T1, axial T2, axial FLAIR, axial SWAN, and axial DWI sequences, and post-contrast 3D T1 PEARSON with multiplanar reformats. 20 mL of Clariscan was administered intravenously. COMPARISON: Head CT 07/03/2023. FINDINGS: BRAIN and EXTRA-AXIAL SPACES: The ventricles and sulci are normal in size. No abnormal signal is seen in the brain parenchyma, and th ere is no evidence of restricted diffusion to suggest acute infarction. The brainstem and cerebellum are normal. There is no hemorrhage, midline shift, or mass effect. There is no extra-axial collection. Flow voids are preserved in the dominant intracranial vessels. Midline structures including the sella are normal. There is no abnormal enhancement. Dominant right transverse and sigmoid sinuses. There is narrowing at the junctions of the bilateral transverse and sigmoid sinuses, with prominent arachnoid granulations bilaterally. EXTRACRANIAL SOFT TISSUES: Orbits are unremarkable. Because retention cysts in the maxillary sinuses, right larger than left. BONES: Marrow signal is preserved. IMPRESSION: Normal brain. Narrowing at the junctions of the bilateral transverse and sigmoid sinuses. This is nonspecific but can be associated with idiopathic intracranial hypertension. 07/04/23 10:30 03/07/24 10:30 CSF Cell Count Color *COLORLESS *COLORLESS CSF Cell Count Appearance *CLEAR *CLEAR CSF Cell Count WBC 1 <1 CSF Cell Count RBC 1 ?*3 CSF Cells, Lymph FLUID DIFF NOT PERFORMED, WBC < 5 CELLS/MM3 FLUID DIFF NOT PERFORMED, WBC < 5 CELLS/MM3 Total Protein, CSF 24 -- Glucose, CSF 61 Assessment & Plan Assessment & Plan (1) IIH (idiopathic intracranial hypertension): Code(s): G93.2 - Benign intracranial hypertension Category: Medical (2) Obesity (BMI 30.0-34.9): Code(s): E66.9 - Obesity, unspecified Category: Medical Plan Pt advised to resume Topiramate at 25mg bid- monitor tolerance. Pt agrees. If not tolerated, consider trial of furosemide. Pt is advised to undergo brain MRV to better assess degree of narrowing at the junctions of the bilateral transverse and sigmoid sinuses. Continue weight loss efforts- could consider referral to weight loss clinic. Follow-up w/ ophthalmology as scheduled- [facility]. Pt advised to notify us/ophthalmology w/ any new/worsening s/s, including vision changes, headcahes. f/u in 4 months or sooner prn. Orders: Orders MR venography head wo/w con Today G93.2 - Benign intracranial hypertension Medications: New topiramate 25 mg PO BID 30 days 60 tabs 3RF Coding Level of Care Code New Pt Level 4 (71550) Diagnoses IIH (idiopathic intracranial hypertension) G93.2 Obesity (BMI 30.0-34.9) E66.9
[2023-12-17 15:03] VITALS: BP 124/90; PULSE 72; O2SAT 96; BMI 30.2
== END 2023-12-17 16:26 | disposition home or self-care (01) ==
PROVIDERS: PCP Physician Assistant; Visit Provider Psychiatry & Neurology Neurology
DX: G93.2 Benign intracranial hypertension (principal); E66.9 Obesity, unspecified
CPT/HCPCS: 99204

== ENCOUNTER → 2023-12-17 14:16 | Outpatient (BNVA) | payer OTHER, SELFPAY | PROVIDERS: PCP Physician Assistant; Visit Provider Psychiatry & Neurology Neurology ==

== ENCOUNTER 2023-12-23 15:32 | Outpatient (AMB) | payer OTHER, SELFPAY ==
--- NOTE | 2023-12-23 15:33 | A.OFFPC_ITS ---
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 Accompanied by: Self / Same As Patient Allergies acetazolamide Adverse Reaction (Intermediate, Verified 12/23/23 15:53) Anxiety Medication List - Last Reconciled 12/23/23 by Lencho Kim PA-C acetaminophen (Tylenol) 650 mg (2 x 325 mg) PO Q6H PRN dextroamphetamine-amphetamine 10 mg ER (Adderall XR) 10 mg PO DAILY 30 days escitalopram oxalate 10 mg PO DAILY levonorgestrel (Liletta) 1 device intrauterine DIRECTED topiramate 50 mg PO BID 30 days topiramate 25 mg PO BID 30 days Tobacco use date assessed: 07/18/23 Dental Screening Dental Screen Date: 07/18/23 HPI Follow-up ADHD HPI Details Patient is a 38-year-old female here today for a follow-up. Patient's past medical history significant for generalized anxiety disorder, depression, intracranial hypertension and ADHD. Intracranial hypertension; now followed by Neurology. Her Topamax was recently reduced to 25 mg. Was diagnosed with IIH-was diagnosed spring at [facility]--> underwent a Lumbar puncture noted high pressures. She did undergo CT and MRI of brain. . Unfortunately had adverse reaction to acetazolamide unable to tolerate. Has followed up with ophthomology and papilla edema has significantly reduced. . ADHD: Has continued on Adderall 10 mg extended release on workdays and has found a significant improvement in her attention and focus along with productivity at work. She has been promoted at work. She denies any ill side effects from stimulant medication. .. PFSH Medical History Vitamin D deficiency Anxiety Ulnar neuropathy Elevated blood pressure reading Surgical History Perianal abscess Family History Sister Bipolar 1 disorder Brother Autism Schizophrenia Asperger syndrome Brother No problems noted. Mother Diabetes Father Diabetes Son No problems noted. Son No problems noted. Social History Household Members: Spouse and Children Housing: House Do you presently have visiting nurse or other home services: No Alcohol intake: current Alcohol intake frequency: holidays/special occasions only Patient Tobacco Use Status: Former Tobacco user Tobacco use type: Cigarette e-Cigarette/Vaping Use: Never Used Second Hand Smoke Exposure: Yes Substance Use Type: Marijuana service: No Current occupational status: employed Cognitive needs: No Hearing needs: No Vision needs: Yes Female Reproductive History Menstrual Age of Menarche: 10 Questionnaire Thrive Questionnaire Date Thrive assessed: 06/16/23 RATNA-7 AMB Questionnaire RATNA-7 Date RATNA - 7 assessed: 06/18/23 Source: Developed by Drs. Venkatesh Camara, Merlyn Ortiz, Kali Hamilton and colleagues, with an educational sully from [employer]. Review of Systems Const Denies headache(s) Eyes Denies loss of vision ENT Denies vertigo, Denies dizziness, Denies headache(s) and Denies sore throat Card Denies chest pain, Denies leg edema and Denies lightheadedness Resp Denies cough, Denies hemoptysis and Denies wheezing GI Denies abdominal pain, Denies melena, Denies constipation, Denies diarrhea and Denies vomiting Denies urinary frequency, Denies dysuria and Denies urinary urgency Musc Denies arthralgias, Denies joint swelling, Denies numbness and Denies tingling Neuro Denies Abnormal speech present, Denies behavioral changes, Denies vertigo, Denies dizziness, Denies headache(s), Denies loss of vision, Denies memory loss, Denies numbness and Denies tingling Psych Denies anxiety, Denies behavioral changes, Denies depression, Denies memory loss and Denies panic attacks Domo/Lymph Denies easy bleeding and Denies easy bruising Aller/Immun Denies wheezing Physical exam (Primary Care) Vital Signs: Last Vital Signs Pulse 105 H 12/23/23 15:42 BP 120/80 12/23/23 15:42 Pulse Ox 98 12/23/23 15:42 Oxygen Delivery Method Room Air 12/23/23 15:42 BMI result Body Mass Index 30.0 Tobacco/Smoking Status: Tobacco use Status Tobacco use date assessed 07/18/23 12/23/23 15:34 Patient Tobacco Use Status Former Tobacco user 12/23/23 15:34 Tobacco use type Cigarette 12/23/23 15:34 e-Cigarette/Vaping Use Never Used 12/23/23 15:34 Thrive Assessment: Date of Thrive Assessment Date Thrive assessed 06/16/23 12/23/23 15:34 Const General: healthy appearing, no acute distress, alert and awake Nutritional Appearance: well nourished Orientation/consciousness: oriented to person, oriented to place and oriented to time HENMT Ears: TM's normal bilaterally General nose exam: Normal nasal mucous membranes and turbinates present Eyes Conjunctivae: conjunctivae normal Sclerae: sclerae normal Pupils: Equal, round and reactive pupils present Neck Neck: Yes no lymphadenopathy and Yes no JVD Thyroid: Thyroid normal Carotids: no bruits Resp Effort & Inspection: normal respiratory effort and not tachypneic Auscultation: no crackles, no rales, no rhonchi and no wheezes Cardio Rate: regular rate Rhythm: regular rhythm Heart sounds: no murmurs and normal S1 and S2 GI Palpation (GI): Soft to palpation, nontender, no hepatomegaly and no splenomegaly Auscultation: normal bowel sounds Skin General skin exam: no rashes or lesions noted and dry skin Neuro General: oriented to person, oriented to place and oriented to time Cranial nerves: Yes Equal, round and reactive pupils present Speech: No Abnormal speech present Gait exam (Neuro): Normal gait present Motor exam (neuro): no tremor noted Extrem Right upper extremity: full ROM Left upper extremity: full ROM Right lower extremity: full ROM; no edema Left lower extremity: full ROM; no edema Psych Mental Status: mental status grossly normal Speech and movement: Normal speech and movement present Affect: normal affect Attitude: cooperative Thought process: Normal thought process present Assessment and Plan Assessment & Plan (1) ADHD: Code(s): F90.9 - Attention-deficit hyperactivity disorder, unspecified type Qualifiers: Attention deficit-hyperactivity disorder type: predominantly inattentive Qualified Code(s): F90.0 - Attention-deficit hyperactivity disorder, predominantly inattentive type Plan: Patient doing quite well with her attention and focus on detailed tasks at work. She continues on p.r.n. use of Adderall 10 mg without side effect. She has applied for a new higher position at work in his in interview process. She believes her life has significantly improved since being treated for ADHD. (2) Seasonal affective disorder: Code(s): F33.8 - Other recurrent depressive disorders Plan: Patient plans to restart Lexapro 10 mg this fall as she does suffer from pretty severe seasonal affective disorder. Medications: Changed From escitalopram oxalate 10 mg PO DAILY F41.9 - Anxiety disorder, unspecified To escitalopram oxalate 10 mg PO DAILY 90 tabs 1RF 90 days F41.9 - Anxiety disorder, unspecified Refilled dextroamphetamine-amphetamine 10 mg ER (Adderall XR) Partial Fill upon patient request. 10 mg PO DAILY 30 caps 0RF 30 days F90.0 - Attention-deficit hyperactivity disorder, predominantly inattentive type Discontinued topiramate Discontinued Reason: Doctor's Order 50 mg PO BID 30 days 60 tabs 1RF G93.2 - Benign intracranial hypertension Coding Level of Care Code Est Pt Level 4 (17409) Diagnoses Attention deficit hyperactivity disorder (ADHD), predominantly inattentive type F90.0 Attention deficit-hyperactivity disorder type: predominantly inattentive Seasonal affective disorder F33.8
[2023-12-23 15:42] VITALS: BP 120/80; PULSE 105; O2SAT 98
== END 2023-12-23 16:07 | disposition home or self-care (01) ==
PROVIDERS: PCP Physician Assistant; Visit Provider Physician Assistant
DX: F90.0 Attention-deficit hyperactivity disorder, predominantly inattentive type (principal); F33.8 Other recurrent depressive disorders
CPT/HCPCS: 99214

== ENCOUNTER 2024-02-19 08:28 | Outpatient (AMB) | payer OTHER, SELFPAY ==
--- NOTE | 2024-02-19 08:32 | MHC.OFFVIS ---
Vital Signs 02/19/24 08:32 Height 5 ft 9 in Weight 202 lb 15.991 oz BMI 30.0 Intake Visit Reasons: Perineal abscess vs Hemorrhoids Intake Note: This patient presents for perineal abscess vs. hemorrhoids assessment. Pt c/o; reports no rectal bleeding, reports rectal discharge, reports no fever, chills, nausea or vomiting. 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 She says that this happened about 2 weeks ago. She says she had severe pain at that time and she was even unable to sit down comfortably. She said this lasted for a few days. She said this usually happens late during the day She says that today she is well and denies any anal pain or tenderness. She denies any bleeding She does state that she feels much better compared to about 2 weeks ago. I had seen her in May, for a small perianal abscess treated with antibiotics. [facility] Medical History Anal pain Vitamin D deficiency Anxiety Ulnar neuropathy Elevated blood pressure reading Surgical History Perianal abscess Family History Sister Bipolar 1 disorder Brother Autism Schizophrenia Asperger syndrome Brother No problems noted. Mother Diabetes Father Diabetes Son No problems noted. Son No problems noted. Social History Household Members: Spouse and Children Housing: House Do you presently have visiting nurse or other home services: No Alcohol intake: current Alcohol intake frequency: holidays/special occasions only Patient Tobacco Use Status: Former Tobacco user Tobacco use type: Cigarette e-Cigarette/Vaping Use: Never Used Second Hand Smoke Exposure: Yes Substance Use Type: Marijuana service: No Current occupational status: employed Cognitive needs: No Hearing needs: No Vision needs: Yes Female Reproductive History Menstrual Age of Menarche: 10 Review of Systems Const Denies chills and Denies fever(s) Card Denies chest pain, Denies dyspnea and Denies dyspnea on exertion Resp Denies cough, Denies dyspnea and Denies dyspnea on exertion GI Denies hematochezia and Denies change in bowel habits Denies hematuria Musc Denies back pain and Denies limited range of motion Neuro Denies focal weakness and Denies convulsions Psych Denies depression and Denies mood swings Physical Exam Vital Signs: BMI result Body Mass Index 30.0 Const General: comfortable and no acute distress Orientation/consciousness: patient oriented x3 Neck Neck: Yes no lymphadenopathy Resp Auscultation: clear to auscultation bilaterally Cardio Rhythm: regular rhythm GI Other: Rectal exam shows a moderate size external hemorrhoid anteriorly, nonthrombosed, noninflamed, no perianal lesions, no perianal sinuses or induration, no tenderness Palpation (GI): Soft to palpation, nontender and no guarding Neuro General: patient oriented x3 Office Procedures Anoscopy She was in tommy-knife position. The anoscope was gently inserted. A full examination of the anal canal was done. She did have columns of internal hemorrhoids that were moderate size. Her both on the left and right side. There were no lesions seen. There was no fissure. There was no ulceration. There was no induration on digital exam. There was no tenderness. There was no blood. She had some stools in the rectum and this did not appear bloody. [id number] Assessment & Plan Assessment & Plan (1) Anal pain: Code(s): K62.89 - Other specified diseases of anus and rectum Category: Medical Plan: Exam does not show any suggestion of a perianal abscess. Does have external hemorrhoids as well as internal hemorrhoids. She likely had a swollen hemorrhoid 2 weeks ago causing her to have significant pain I did explain to her the option of hemorrhoidectomy or rubber band ligation for internal hemorrhoids. She says that she would like to avoid this for now. I explained to her that if she has recurrence, she should come back to the office to be re-evaluated. She is comfortable with the plan I am going to send her prescription for Anucort as well in case she has recurrence. Coding Level of Care Code Est Pt Level 3 (37037) Diagnoses Anal pain K62.89 CPT Codes Details - CPT: 94551-[id number] ([id number])
== END 2024-02-19 09:17 | disposition home or self-care (01) ==
PROVIDERS: PCP Physician Assistant; Visit Provider Surgery
DX: K62.89 Other specified diseases of anus and rectum (principal)
CPT/HCPCS: 46600; 99213

== ENCOUNTER → 2024-02-19 08:28 | Outpatient (BNVA) | payer OTHER, SELFPAY | PROVIDERS: PCP Physician Assistant; Visit Provider Surgery | DX: K62.89 Other specified diseases of anus and rectum (principal); K64.4 Residual hemorrhoidal skin tags; K64.8 Other hemorrhoids | CPT/HCPCS: 46600 ==

== ENCOUNTER 2024-03-17 14:29 | Outpatient (AMB) | payer OTHER, SELFPAY ==
[2024-03-17 14:42] VITALS: BP 140/100; PULSE 95; O2SAT 96; BMI 30.7
--- NOTE | 2024-03-17 14:42 | A.OFFPC_ITS ---
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 Accompanied by: Self / Same As Patient Allergies acetazolamide Adverse Reaction (Intermediate, Verified 03/17/24 14:45) Anxiety Medication List - Last Reconciled 03/17/24 by Lencho Kim PA-C acetaminophen (Tylenol) 650 mg (2 x 325 mg) PO Q6H PRN dextroamphetamine-amphetamine 10 mg ER (Adderall XR) 10 mg PO DAILY 30 days dextroamphetamine-amphetamine 5 mg ER (Adderall XR) 10 mg (2 x 5 mg) PO DAILY 28 days escitalopram oxalate 10 mg PO DAILY 90 days levonorgestrel (Liletta) 1 device intrauterine DIRECTED topiramate 25 mg PO BID 30 days Tobacco use date assessed: 07/18/23 Dental Screening Dental Screen Date: 07/18/23 HPI f/u ADHD HPI Details Patient is a 39-year-old female here today for a follow-up. Patient's past medical history significant for generalized anxiety disorder, depression, intracranial hypertension and ADHD. Intracranial hypertension; now followed by Neurology. Her Topamax was recently reduced to 25 mg. Was diagnosed with IIH-was diagnosed spring at [facility]--> underwent a Lumbar puncture noted high pressures. She did undergo CT and MRI of brain. . Unfortunately had adverse reaction to acetazolamide unable to tolerate. Has followed up with ophthomology and papilla edema has significantly reduced/ a lmost negligible .. Anorectal pain : Patient has a history of a anorectal abscess. Has followed up with general surgeon here in [place] though are unable to appreciate her abscess. She does report having significant pain later in the day to the point where she has to lay down and rest. She reports she is able to express some kind of drainage if she puts pressure inside of her vagina. She would like to see a new rectal surgeon as a 2nd opinion on possible treatments on this possible rectal abscess with fistula formation. --> of note noted elevated blood pressur e today in office likely secondary to her anorectal pain she is in currently. . ADHD: Has continued on Adderall 10 mg extended release on workdays and has found a significant improvement in her attention and focus along with productivity at work. She has been promoted at work. She denies any ill side effects from stimulant medication. [facility] Medical History (Updated 03/17/24 @ 14:56 by Lencho Kim PA-C) Anal pain Vitamin D deficiency Anxiety Ulnar neuropathy Elevated blood pressure reading Surgical History Perianal abscess Family History Sister Bipolar 1 disorder Brother Autism Schizophrenia Asperger syndrome Brother No problems noted. Mother Diabetes Father Diabetes Son No problems noted. Son No problems noted. Social History Household Members: Spouse and Children Housing: House Do you presently have visiting nurse or other home services: No Alcohol intake: current Alcohol intake frequency: holidays/special occasions only Patient Tobacco Use Status: Former Tobacco user Tobacco use type: Cigarette e-Cigarette/Vaping Use: Never Used Second Hand Smoke Exposure: Yes Substance Use Type: Marijuana service: No Current occupational status: employed Cognitive needs: No Hearing needs: No Vision needs: Yes Female Reproductive History Menstrual Age of Menarche: 10 Questionnaire Thrive Questionnaire Date Thrive assessed: 06/16/23 AUDIT C Alcohol Use Questionnaire (AUDIT-C) 2. How many drinks containing alcohol do you have on a typical day when you are drinking?: 1 or 2 3. How often do you have six or more drinks on one occasion?: Less than monthly Total Score: 1 RATNA-7 AMB Questionnaire RATNA-7 Date RATNA - 7 assessed: 06/18/23 Source: Developed by Drs. Venkatesh Camara, Merlyn Ortiz, Kali Hamilton and colleagues, with an educational sully from [employer] Review of Systems Const Denies headache(s) Eyes Denies loss of vision ENT Denies vertigo, Denies dizziness, Denies headache(s) and Denies sore throat Card Denies chest pain, Denies leg edema and Denies lightheadedness Resp Denies cough, Denies hemoptysis and Denies wheezing GI Denies abdominal pain, Denies melena, Denies constipation, Denies diarrhea and Denies vomiting Denies urinary frequency, Denies dysuria and Denies urinary urgency Musc Denies arthralgias, Denies joint swelling, Denies numbness and Denies tingling Neuro Denies Abnormal speech present, Denies behavioral changes, Denies vertigo, Denies dizziness, Denies headache(s), Denies loss of vision, Denies memory loss, Denies numbness and Denies tingling Psych Denies anxiety, Denies behavioral changes, Denies depression, Denies memory loss and Denies panic attacks Domo/Lymph Denies easy bleeding and Denies easy bruising Aller/Immun Denies wheezing Physical exam (Primary Care) Vital Signs: Last Vital Signs Pulse 95 03/17/24 14:42 BP 140/100 H 03/17/24 14:42 Pulse Ox 96 03/17/24 14:42 Oxygen Delivery Method Room Air 03/17/24 14:42 BMI result Body Mass Index 30.7 Tobacco/Smoking Status: Tobacco use Status Tobacco use date assessed 07/18/23 03/17/24 14:43 Patient Tobacco Use Status Former Tobacco user 03/17/24 14:43 Tobacco use type Cigarette 03/17/24 14:43 e-Cigarette/Vaping Use Never Used 03/17/24 14:43 Thrive Assessment: Date of Thrive Assessment Date Thrive assessed 06/16/23 03/17/24 14:43 Const General: healthy appearing, no acute distress, alert and awake Nutritional Appearance: well nourished Orientation/consciousness: oriented to person, oriented to place and oriented to time HENMT Ears: TM's normal bilaterally General nose exam: Normal nasal mucous membranes and turbinates present Eyes Conjunctivae: conjunctivae normal Sclerae: sclerae normal Pupils: Equal, round and reactive pupils present Neck Neck: Yes no lymphadenopathy and Yes no JVD Thyroid: Thyroid normal Carotids: no bruits Resp Effort & Inspection: normal respiratory effort and not tachypneic Auscultation: no crackles, no rales, no rhonchi and no wheezes Cardio Rate: regular rate Rhythm: regular rhythm Heart sounds: no murmurs and normal S1 and S2 GI Palpation (GI): Soft to palpation, nontender, no hepatomegaly and no splenomegaly Auscultation: normal bowel sounds Skin General skin exam: no rashes or lesions noted and dry skin Neuro General: oriented to person, oriented to place and oriented to time Cranial nerves: Yes Equal, round and reactive pupils present Speech: No Abnormal speech present Gait exam (Neuro): Normal gait present Motor exam (neuro): no tremor noted Extrem Right upper extremity: full ROM Left upper extremity: full ROM Right lower extremity: full ROM; no edema Left lower extremity: full ROM; no edema Psych Mental Status: mental status grossly normal Speech and movement: Normal speech and movement present Affect: normal affect Attitude: cooperative Thought process: Normal thought process present Office Procedures Flu Questionnaire Does the patient have a severe egg allergy?: No Does the patient have severe life threatening allergies?: No Does the patient have a fever or illness today?: No Has the patient ever had Guillain-Lakemore Syndrome?: No Has the patient ever had any past reaction to a flu shot?: No Immunizations Fluarix Triv [id number] (PF) 45 mcg (15 mcg x 3)/0.5 mL IM syringe Performing Provider: Lencho Kim PA-C [facility] [place] [facility] Administered by: TAMICA Rodriguez on 03/17/24 14:43 Dose Route Admin Location Dispensed Lot Number Expiration Date NDC Rn Diabetes 0.5 mL IM Right Deltoid 0.5 mL [id number] 10/26/24 [id number] [employer] VIS Given Date VIS Provided VIS Publication Date 03/17/24 Single Vaccine 20 Eligibility Eligibility Date Funding Source Not [facility] Eligible 03/17/24 Private Coding Level of Care Code Est Pt Level 4 (41481) Diagnoses Attention deficit hyperactivity disorder (ADHD), predominantly inattentive type F90.0 Attention deficit-hyperactivity disorder type: predominantly inattentive Elevated blood pressure reading R03.0 Anal pain K62.89 Abscess of anal and rectal regions K61.2 Assessment & Plan Assessment & Plan (1) ADHD: Code(s): F90.9 - Attention-deficit hyperactivity disorder, unspecified type Category: Medical Qualifiers: Attention deficit-hyperactivity disorder type: predominantly inattentive Qualified Code(s): F90.0 - Attention-deficit hyperactivity disorder, predominantly inattentive type Plan: As per HPI patient has been doing well on current dose of stimulant ADHD medication. She is working full-time and is very productive. She is looking for a new job in a higher position. (2) Elevated blood pressure reading: Code(s): R03.0 - Elevated blood-pressure reading, without diagnosis of hypertension Category: Medical Plan: Noted elevated blood pressure readings today. Likely due to her current rectal pain. She will monitor blood pressure at. (3) Anal pain: Code(s): K62.89 - Other specified diseases of anus and rectum Category: Medical Plan: As per HPI patient in pretty significant rectal pain and does report being able to express drainage from her anus at times which does reduce some for pain. She would like to 2nd opinion from a rectal surgeon thus will refer to [facility]. Will send the long CT of pelvis imaging. Will supply patient with short-term script of pain medication to take on a very limited p.r.n. basis for pain scales 9-10. (4) Abscess of anal and rectal regions: Code(s): K61.2 - Anorectal abscess Category: Medical Plan: As above Orders: Orders Influenza [id number] Immunization 03/17/24 Z23 - Encounter for immunization Referrals General Surgery Referral K61.2 - Anorectal abscess Medications: New oxycodone Partial Fill upon patient request. 5 mg PO BID PRN 10 tabs 0RF pain 5 days K61.2 - Anorectal abscess
== END 2024-03-17 15:08 | disposition home or self-care (01) ==
PROVIDERS: PCP Physician Assistant; Visit Provider Physician Assistant
DX: F90.0 Attention-deficit hyperactivity disorder, predominantly inattentive type (principal); R03.0 Elevated blood-pressure reading, without diagnosis of hypertension; K62.89 Other specified diseases of anus and rectum; K61.2 Anorectal abscess

== ENCOUNTER → 2024-03-17 14:29 | Outpatient (BNVA) | payer OTHER, SELFPAY | PROVIDERS: PCP Physician Assistant; Visit Provider Physician Assistant | DX: F90.0 Attention-deficit hyperactivity disorder, predominantly inattentive type (principal); R03.0 Elevated blood-pressure reading, without diagnosis of hypertension; K62.89 Other specified diseases of anus and rectum; K61.2 Anorectal abscess; Z23 Encounter for immunization | CPT/HCPCS: 90471; 90656 ==

== ENCOUNTER 2024-04-10 14:13 | Outpatient (AMB) | payer OTHER, SELFPAY ==
--- NOTE | 2024-04-10 14:17 | AM.OFFWIN_ITS ---
Intake Intake Visit Reasons: EP-?shingles dorsal area Intake Note: Patient here for rash that starts on left side of belly button and goes to the back area, it is painful(tingling). Patient Tobacco Use Status: Former Tobacco user Allergies acetazolamide Adverse Reaction (Intermediate, Verified 04/10/24 14:25) Anxiety Do you need a note to return to daycare/school/sports/work: No HPI HPI Comments History of Present Illness Details This is a 39-year-old female with a past medical history of ADHD, intracranial hypertension and depression presenting for evaluation of a rash on her abdomen. Patient states she has had 4 days of pain and tingling on the left side of her abdomen that radiates to her flank. This morning in the shower, the patient noticed a rash in the same place and the pain is worsening. Patient denies having any fevers, chills, nausea, vomiting, dysuria or hematuria. Patient has not taken any medication for treatment of her discomfort. [facility] Medical History (Updated 04/10/24 @ 14:49 by Barby Angel PA-C) Anal pain Vitamin D deficiency Anxiety Ulnar neuropathy Elevated blood pressure reading Surgical History Perianal abscess Family History Sister Bipolar 1 disorder Brother Autism Schizophrenia Asperger syndrome Brother No problems noted. Mother Diabetes Father Diabetes Son No problems noted. Son No problems noted. Social History Household Members: Spouse and Children Housing: House Do you presently have visiting nurse or other home services: No Alcohol intake: current Alcohol intake frequency: holidays/special occasions only Patient Tobacco Use Status: Former Tobacco user Tobacco use type: Cigarette e-Cigarette/Vaping Use: Never Used Second Hand Smoke Exposure: Yes Substance Use Type: Marijuana service: No Current occupational status: employed Cognitive needs: No Hearing needs: No Vision needs: Yes Female Reproductive History Menstrual Age of Menarche: 10 Review of Systems Const All systems reviewed & are unremarkable except as noted in HPI and below Reports no additional complaints Eyes Reports no additional complaints ENT Reports no additional complaints Card Reports no additional complaints Resp Reports no additional complaints GI Reports no additional complaints Reports no additional complaints Musc Reports no additional complaints and Reports tingling (left abdomen and left flank) Skin/Breast Reports system reviewed and no additional complaints, except as documented, Reports lesions, Reports non-healing lesions, Reports erythema and Reports rash Neuro Reports no additional complaints and Reports tingling (left abdomen and left flank) Psych Reports no additional complaints Endo Reports no additional complaints Domo/Lymph Reports no additional complaints Aller/Immun Reports no additional complaints Physical Exam Const General: cooperative, healthy appearing, no acute distress, well developed, alert and awake; No comfortable Nutritional Appearance: average body habitus and well nourished Orientation/consciousness: patient oriented x3 Limitations: no limitations Skin Other: There is interruption of vesicles and papules on an erythematous base on the left anterior and posterior trunk along the T7/T8 dermatome; no evidence of a secondary cellulitis Rashes: rashes noted (vesicles/papules on erythematous base posterior/anterior trunk ) papules left abdomen Neuro General: patient oriented x3 Psych Appearance: grossly normal Mental Status: mental status grossly normal Insight: Good insight present (Psych) Judgement: Good judgement present (Psych) Assessment & Plan Assessment & Plan (1) Herpes zoster: Comment: Patient's history coupled with her examination is consistent with herpes zoster. Code(s): B02.9 - Zoster without complications Qualifiers: Herpes zoster complications: without complications Qualified Code(s): B02.9 - Zoster without complications Plan: Valtrex 1 gram t.i.d. x7 days; ibuprofen 800 mg q.8 hours and Percocet 5/325 mg q.6 hours p.r.n. pain. Medications: New valacyclovir (Valtrex) 1,000 mg PO TID 21 tabs 0RF ibuprofen 800 mg PO Q8H PRN 20 tabs 0RF pain oxycodone-acetaminophen 5-325 mg (Percocet) Partial Fill upon patient request. 1 tab PO Q4-6H PRN 8 tabs 0RF severe pain Coding Level of Care Code Est Pt Level 3 (80013) Diagnoses Herpes zoster without complication B02.9 Herpes zoster complications: without complications Time Spent (min) 20
== END 2024-04-10 14:51 | disposition home or self-care (01) ==
PROVIDERS: PCP Physician Assistant; Visit Provider Physician Assistant
DX: B02.9 Zoster without complications (principal)

== ENCOUNTER → 2024-04-10 14:13 | Outpatient (BNVA) | payer OTHER, SELFPAY | PROVIDERS: PCP Physician Assistant; Visit Provider Physician Assistant ==

== ENCOUNTER 2024-04-14 08:32 | Outpatient (AMB) | payer OTHER, SELFPAY ==
--- NOTE | 2024-04-14 08:34 | A.OFFPC_ITS ---
Vital Signs 3 04/14/24 08:35 Height 5 ft 9 in Weight 212 lb 8 oz BMI 31.4 BP 130/80 Blood Pressure Location Lt brachial Position Sitting Pulse 74 Pulse Source Pulse Oximeter Pulse Oximetry (%) 96 Oxygen Delivery Method Room Air Intake Visit Reasons: Rash on skin Intake Note: Patient is here to follow up on Rash on skin( possible shingles) on the left side of stomach for 7 days. Machine Inspector Required: No Channel Machine Operator: Not Required per policy Accompanied by: Self / Same As Patient Allergies acetazolamide Adverse Reaction (Intermediate, Verified 04/14/24 08:42) Anxiety Medication List - Last Reconciled 04/14/24 by Lencho Kim PA-C acetaminophen (Tylenol) 650 mg (2 x 325 mg) PO Q6H PRN dextroamphetamine-amphetamine 10 mg ER (Adderall XR) 10 mg PO DAILY 30 days dextroamphetamine-amphetamine 5 mg ER (Adderall XR) 10 mg (2 x 5 mg) PO DAILY 28 days escitalopram oxalate 10 mg PO DAILY 90 days ibuprofen 800 mg PO Q8H PRN levonorgestrel (Liletta) 1 device intrauterine DIRECTED oxycodone-acetaminophen 5-325 mg (Percocet) 1 tab PO Q4-6H PRN topiramate 25 mg PO BID 30 days valacyclovir (Valtrex) 1,000 mg PO TID Tobacco use date assessed: 04/14/24 Dental Screening Dental Screen Date: 07/18/23 HPI Rash on skin 2 HPI0 Details The patient is a 39-year-old female presenting with herpes zoster. The rash developed three days after her pet squirrel , a period during which she experienced significant emotional stress. She initially noticed a strange sensation thought to be irritation from her bra, which soon intensified and was followed by a rash. The rash was confined to one side of her body, aligning with typical shingles presentation. She first sought treatment at a walk-in clinic where she received a diagnosis of shingles and was prescribed ibuprofen and oxycodone for pain management. The patient reports severe burning neuralgia, particularly affecting the skin under her ribs and around her armpits. Existing medications, ibuprofen and the remaining oxycodone, have provided insufficient relief. She describes the pain as a burning sensation that makes wearing clothes uncomfortable and significantly impacts her sleep. She has not yet tried topical lidocaine. The patient mentioned experiencing severe headaches following antiviral therapy, which coincided with the appearance of the rash. The rash is showing signs of crusting, indicating it is in the later stages. [facility] Medical History Anal pain Vitamin D deficiency Anxiety Ulnar neuropathy Elevated blood pressure reading Surgical History Perianal abscess Family History Sister Bipolar 1 disorder Brother Autism Schizophrenia Asperger syndrome Brother No problems noted. Mother Diabetes Father Diabetes Son No problems noted. Son No problems noted. Other Mental health disorder Social History Household Members: Spouse and Children Housing: House Do you presently have visiting nurse or other home services: No Alcohol intake: current Alcohol intake frequency: holidays/special occasions only Patient Tobacco Use Status: Former Tobacco user Tobacco use type: Cigarette e-Cigarette/Vaping Use: Never Used Second Hand Smoke Exposure: Yes Substance Use Type: Marijuana service: No Current occupational status: employed Cognitive needs: No Hearing needs: No Vision needs: Yes Female Reproductive History Menstrual Age of Menarche: 10 Questionnaire Thrive Questionnaire Date Thrive assessed: 06/16/23 RATNA-7 AMB Questionnaire RATNA-7 Date RATNA - 7 assessed: 06/18/23 Source: Developed by Drs. Venkatesh Camara, Merlyn Ortiz, Kali Hamilton and colleagues, with an educational sully from [employer]. Review of Systems Const Denies headache(s) Eyes Denies loss of vision ENT Denies vertigo, Denies dizziness, Denies headache(s) and Denies sore throat Card Denies chest pain, Denies leg edema and Denies lightheadedness Resp Denies cough, Denies hemoptysis and Denies wheezing GI Denies abdominal pain, Denies melena, Denies constipation, Denies diarrhea and Denies vomiting Denies urinary frequency, Denies dysuria and Denies urinary urgency Musc Denies arthralgias, Denies joint swelling, Denies numbness and Denies tingling Neuro Denies Abnormal speech present, Denies behavioral changes, Denies vertigo, Denies dizziness, Denies headache(s), Denies loss of vision, Denies memory loss, Denies numbness and Denies tingling Psych Denies anxiety, Denies behavioral changes, Denies depression, Denies memory loss and Denies panic attacks Domo/Lymph Denies easy bleeding and Denies easy bruising Aller/Immun Denies wheezing Physical exam (Primary Care) Vital Signs: Last Vital Signs Pulse 74 04/14/24 08:35 BP 130/80 04/14/24 08:35 Pulse Ox 96 04/14/24 08:35 Oxygen Delivery Method Room Air 04/14/24 08:35 BMI result Body Mass Index 31.4 Tobacco/Smoking Status: Tobacco use Status Tobacco use date assessed 04/14/24 04/14/24 08:35 Patient Tobacco Use Status Former Tobacco user 04/14/24 08:35 Tobacco use type Cigarette 04/14/24 08:35 e-Cigarette/Vaping Use Never Used 04/14/24 08:35 Thrive Assessment: Date of Thrive Assessment Date Thrive assessed 06/16/23 04/14/24 08:35 Const General: healthy appearing, no acute distress, alert and awake Nutritional Appearance: well nourished Orientation/consciousness: oriented to person, oriented to place and oriented to time HENMT Ears: TM's normal bilaterally General nose exam: Normal nasal mucous membranes and turbinates present Eyes Conjunctivae: conjunctivae normal Sclerae: sclerae normal Pupils: Equal, round and reactive pupils present Neck Neck: Yes no lymphadenopathy and Yes no JVD Thyroid: Thyroid normal Carotids: no bruits Resp Effort & Inspection: normal respiratory effort and not tachypneic Auscultation: no crackles, no rales, no rhonchi and no wheezes Cardio Rate: regular rate Rhythm: regular rhythm Heart sounds: no murmurs and normal S1 and S2 GI Palpation (GI): Soft to palpation, nontender, no hepatomegaly and no splenomegaly Auscultation: normal bowel sounds Back/Spine/Pelvis Back/spine/pelvis image: 2 1. GROUP VESICULAR HEALING /CRUSTING RASH NOTED OVER LEFT FLANK. Skin General skin exam: no rashes or lesions noted and dry skin Neuro General: oriented to person, oriented to place and oriented to time Cranial nerves: Yes Equal, round and reactive pupils present Speech: No Abnormal speech present Gait exam (Neuro): Normal gait present Motor exam (neuro): no tremor noted Extrem Right upper extremity: full ROM Left upper extremity: full ROM Right lower extremity: full ROM; no edema Left lower extremity: full ROM; no edema Psych Mental Status: mental status grossly normal Speech and movement: Normal speech and movement present Affect: normal affect Attitude: cooperative Thought process: Normal thought process present Coding Level of Care Code Est Pt Level 3 (35930) Diagnoses Herpes zoster without complication B02.9 Herpes zoster complications: without complications Assessment & Plan Assessment & Plan (1) Herpes zoster: Comment: Patient's history coupled with her examination is consistent with herpes zoster. Code(s): B02.9 - Zoster without complications Category: Medical Qualifiers: Herpes zoster complications: without complications Qualified Code(s): B 02.9 - Zoster without complications Plan: - Continue current antiviral therapy despite headaches, as benefits outweigh the discomfort. - Prescribe lidocaine ointment for topical pain relief to aid in nerve desensitization. - Refill oxycodone to be used on an as-needed basis for pain control. - Initiate gabapentin at 300 mg for nerve pain, starting with nighttime dosing to evaluate effect, with option to take during the day if needed. Medications: New 2 lidocaine 5% 1 appl topical BEDTIME 15 days 50 grams 0RF B02.29 - Other postherpetic nervous system involvement, B02.9 - Zoster without complications gabapentin 300 mg PO BID 15 days 30 caps 0RF B02.29 - Other postherpetic nervous system involvement Changed 2 From oxycodone-acetaminophen 5-325 mg (Percocet) Partial Fill upon patient request. 1 tab PO Q4-6H PRN 8 tabs 0RF severe pain B02.29 - Other postherpetic nervous system involvement To oxycodone-acetaminophen 5-325 mg (Percocet) Partial Fill upon patient request. 1 tab PO Q8H 5 days PRN 15 tabs 0RF severe pain B02.29 - Other postherpetic nervous system involvement
[2024-04-14 08:35] VITALS: BP 130/80; PULSE 74; O2SAT 96; BMI 31.4
== END 2024-04-14 08:57 | disposition home or self-care (01) ==
PROVIDERS: PCP Physician Assistant; Visit Provider Physician Assistant
DX: B02.9 Zoster without complications (principal)

== ENCOUNTER → 2024-04-14 08:32 | Outpatient (BNVA) | payer OTHER, SELFPAY | PROVIDERS: PCP Physician Assistant; Visit Provider Physician Assistant ==

== ENCOUNTER 2024-05-06 07:54 | Outpatient (AMB) | payer OTHER, SELFPAY ==
--- NOTE | 2024-05-06 07:54 | MHC.OFFVIS ---
Vital Signs 05/06/24 07:55 Height 5 ft 9 in Weight 205 lb BMI 30.3 Intake Visit Reasons: Follow up Allergies acetazolamide Adverse Reaction (Intermediate, Verified 05/06/24 07:55) Anxiety Medication List - Last Reconciled 05/06/24 by WILL Barrera acetaminophen (Tylenol) 650 mg (2 x 325 mg) PO Q6H PRN dextroamphetamine-amphetamine 10 mg ER (Adderall XR) 10 mg PO DAILY 30 days dextroamphetamine-amphetamine 5 mg ER (Adderall XR) 10 mg (2 x 5 mg) PO DAILY 28 days escitalopram oxalate 10 mg PO DAILY 90 days gabapentin 300 mg PO BID 15 days ibuprofen 800 mg PO Q8H PRN levonorgestrel (Liletta) 1 device intrauterine DIRECTED lidocaine 5% 1 appl topical BEDTIME 15 days oxycodone-acetaminophen 5-325 mg (Percocet) 1 tab PO Q8H PRN 4 days topiramate 25 mg PO BID 30 days valacyclovir (Valtrex) 1,000 mg PO TID HPI Comments Details: 38-yr-old female presents for follow-up tele video visit for IIH. PMH includes obesity (BMI 30), ADHD. Patient reports she is undergoing MRI and possible surgery for a recurrent perianal abscess. She wonders if this will be affected or affect her IIH in any way. Patient denies any interval IIH symptoms. Denies headache, vision changes. Notes that in the past she has denied tinnitus, however she states she recently realized that she has probably had tinnitus for quite some time. The tendon this is not overly bothersome. She has started topiramate 25 mg b.i.d.. She is tolerating this well. She has not noticed any changes in her mood related to the topiramate dose. She states she is pretty sure she has a follow-up appointment coming up with her housing quality standard inspector, will call today to confirm appointment date. Initial HPI from 12/17/2023: Pt reports in June 2023, she had an eye exam d/t onset of headache which she felt was d/t eye strain (she had similar headache from eye strain when in college in her late 20s). Framing Manager noted fely papilledema and referred pt to ophthalmology, [facility] in [facility]) who referred her to [facility] ER. In the ER, Brain MRI w/wo showed mal brain. Narrowing at the junctions of the bilateral transverse and sigmoid sinuses, CBC/CMP/Lyme- NL, ESR 23 sl elevated, CRP1.1 H. LP (in left sided position): OP was 41 cmH2O w/ normal baseline CSF studies. She was started on Acetazolamide CR 500mg BID and Topiramate 25mg bid together while in the hosp. The Acetazolamide caused respiratory diff, racing HR, anxiety, initially felt this was anxiety but then realized she was having SOB. The Topiramate was then increased to 50mg bid, which she stopped in mid-October 2 weeks prior to her last eye exam, d/t increased dose caused cognitive s/s- word finding difficulties, mood changes- depressed mood, passive SI- since resolved. Notes topiramate did help her to lose some weight and to stop alcohol use. Last eye exam on 11/28/23- fely improved papilledema. Notes recently started escitalopram 10mg qd for mood. Prior to this, she was not having headaches, migraines, diplopia, tinnitus. 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 While on Acetazolamide and topiramate- she would see some aura type visuals only at night- these have resolved. She denies any current visual difficulties w/ her new glasses prescription. Denies headaches, tinnitus, diplopia, nasal drng. Denies rashes, swelling. [facility] Medical History Anal pain Vitamin D deficiency Anxiety Ulnar neuropathy Elevated blood pressure reading Surgical History Perianal abscess Family History Sister Bipolar 1 disorder Brother Autism Schizophrenia Asperger syndrome Brother No problems noted. Mother Diabetes Father Diabetes Son No problems noted. Son No problems noted. Other Mental health disorder Social History Household Members: Spouse and Children Housing: House Do you presently have visiting nurse or other home services: No Alcohol intake: current Alcohol intake frequency: holidays/special occasions only Patient Tobacco Use Status: Former Tobacco user Tobacco use type: Cigarette e-Cigarette/Vaping Use: Never Used Second Hand Smoke Exposure: Yes Substance Use Type: Marijuana service: No Current occupational status: employed Cognitive needs: No Hearing needs: No Vision needs: Yes Female Reproductive History Menstrual Age of Menarche: 10 Physical Exam Vital Signs: BMI result Body Mass Index 30.3 Const General: cooperative and no acute distress Orientation/consciousness: patient oriented x3 Resp Effort & Inspection: normal respiratory effort and able to speak in complete sentences Neuro General: patient oriented x3 Cognition (Neuro): normal cognition Psych Appearance: grossly normal Mental Status: mental status grossly normal Speech and movement: Normal speech and movement present Affect: normal affect Attitude: cooperative Telehealth Telehealth Telehealth Platform: [employer] Location of provider rendering services: practice address Location of patient: address on file Patient Identification confirmed using: Name, : Yes Telehealth method: video Patient verbally consented to treatment: Yes Patient verbally consented to billing insurance company: Yes Patient informed of any privacy concerns related to visit: Yes Minutes spent on Phone/Video with Pt.: 10 Assessment & Plan Assessment & Plan (1) IIH (idiopathic intracranial hypertension): Code(s): G93.2 - Benign intracranial hypertension Category: Medical (2) Obesity (BMI 30.0-34.9): Code(s): E66.9 - Obesity, unspecified Category: Medical Plan IH would likely not be affected or affect a perianal surgical procedure. However, advise patient that if she undergoes any sort of surgical procedure, she should discuss her IIH diagnosis and topiramate use with her surgeon and especially her anesthesiologist so that they have all full understanding of her neurological history. Continue Topiramate at 25mg bid, as patient is tolerating this well. monitor tolerance. Reviewed brain MRV- note is made of slightly small caliber and small filling defects which could suggest arachnoid granulations of the bilateral transverse sinuses without evidence of dural sinus thrombosis. Reviewed that weight loss is the primary treatment modality for IIH. Continue weight loss efforts- could consider referral to weight loss clinic. Follow-up w/ ophthalmology as scheduled- [facility]. Pt advised to notify us/ophthalmology w/ any new/worsening s/s, including vision changes, headaches. f/u in 6 months or sooner prn. Medications: Refilled topiramate 25 mg PO BID 60 tabs 6RF 30 days Coding Level of Care Code Tele Est Pt Level 4 (34187) Diagnoses IIH (idiopathic intracranial hypertension) G93.2 Obesity (BMI 30.0-34.9) E66.9
[2024-05-06 07:55] VITALS: BMI 30.3
--- OUTSIDE RECORDS SUMMARY | 2024-05-06 07:57 | XMS_ITS | Continuity of Care Document ---
Author Organization [facility] Address [address] [place] [address] [address] [place] [address]- Care Team Providers Care Client Relations Specialist Name Role Phone Lencho Palomares Primary Care Physician Encounter [facility] Date(s): 03/18/24 - 04/17/[address] [place] [address]- Encounter Type: Triage Allergies, Adverse Reactions, Alerts No Known Allergies Medications acetaZOLAMIDE 500 mg oral capsule, extended release 500 mg, By Mouth, Every 12 hours, # 180 tablet, Refills 0, Tot. Refills 0, Maintenance, 07/04/23 1:17:00 PM EST, Route to Pharmacy Electronically, [facility], Partial fill upon patient request if the prescription is for a schedule II opioid drug., 175, cm, 07/04/23 11:08:00 EST, Height,97.9, kg, 07/03/23 11:52:00 EST, Dry Weight Start Date: 07/04/23 Stop Date: 10/02/23 Status: Ordered Quantity: 180.0 Unit: tablet Repeat number: 1 amphetamine-dextroamphetamine 10 mg oral capsule, extended release 1 capsule = 10 mg, By Mouth, Daily in AM, 0 Refills, Maintenance, 07/03/23 3:24:00 AM EST, ER Capsule, Partial fill upon patient request if the prescription is for a schedule II opioid drug. Start Date: 07/03/23 Status: Ordered Repeat number: 1 topiramate 25 mg oral tablet = 25 mg, By Mouth, 2 times a day, # 180 tablet, 0 Refills, Maintenance, 07/04/23 1:17:00 PM EST, Tablet, [facility], Partial fill upon patient request if the prescription is for a schedule II opioid drug., 175, cm, 07/04/23 11:08:00 EST, Height, 97.9, kg, 07/03/23 11:52:00 EST, Dry Weight Start Date: 07/04/23 Stop Date: 10/02/23 Status: Ordered Quantity: 180.0 Unit: tablet Repeat number: 1 Problem List Condition Confirmation Course Effective Dates Status Health St [facility] Informant ADHD Confirmed Active Obese class I Confirmed Active Obesity Confirmed Active Patient Care team information Care Team Personnel Name: Lencho Palomares Position: Reference Physician Member Role: PCP Address: [address] [place] [address] [address] [place] [id number] Telecom: Name: Clare Paul RN Position: [facility] RN Member Role: Primary Care Nurse Name: Charly CURTIS, mEily Cueva Position: [facility] [place] Nurse Member Role: Primary Care Nurse Insurance Providers Guarantor name: ROLY Health Plan Information #: 1 Payer: [employer] Member Number: NA Policy Number: NA Group Number: NA
--- OUTSIDE RECORDS SUMMARY | 2024-05-06 07:57 | XMS_ITS | Continuity of Care Document ---
Author Organization [facility] Address [address] [place] [address] [address] [place] [address]- Care Team Providers Care Cold Header Name Role Phone Lencho Palomares Primary Care Physician Encounter [facility] Date(s): 04/20/24 - 04/27/[address] [place] [address]- Encounter Diagnosis Anal abscess(Discharge Diagnosis) - 04/20/24 Attending Physician: Suzan Marvin MD Referring Physician: Lencho Palomares Encounter Type: Office Visit Allergies, Adverse Reactions, Alerts No Known Allergies [...] Effective Dates Status Health St atus Informant Anal abscess Confirmed Active ADHD Confirmed Active Obese class I Confirmed Active Obesity Confirmed Active Diagnosis Diagnosis Type Effective Dates Health Status Cl inical Service Informant Anal abscess Discharge Diagnosis 04/20/24 Vital Signs Most recent to oldest [Reference Range]: 1 Height 175 cm (04/20/24 3:59 PM) Weight 96.6 kg (04/20/24 3:59 PM) Pulse Rate [55-90 bpm] 92 bpm *H* (04/20/24 3:59 PM) Body Mass Index [18.5-24.99 kg/m2] 31.54 kg/m2 *>HHI* (04/20/24 3:59 PM) Blood Pressure [90-138/55-84 mm Hg] 141/ 88mm Hg *H* (04/20/24 3:59 PM) Temperature [96.8-100.4 DegF] 97.3 DegF (04/20/24 3:59 PM) Blood pressure sites Arm, right (04/20/24 3:59 PM) Temperature Route Temporal (04/20/24 3:59 PM) Social History Social History Type Response Smoking Status Former smoker, quit more than 30 days ago entered on: 04/20/24 Sex Sex Representation Female (finding) Patient Care team information Care Team Personnel Name: Lencho Palomares Position: Reference Physician Member Role: PCP Address: [address] [place] [address]- Telecom: Name: Clare Paul RN Position: S RN Member Role: Primary Care Nurse Name: Emily Parks RN Position: [facility] Nurse Member Role: Primary Care Nurse Insurance Providers Guarantor name: Health Plan Information #: 2 Payer: JOSE CASAS PPO Member Number: [id number] Policy Number: ROLY Group Number: ROLY Health Plan Information #: 1 Payer: JOSE GIFFORD O Member Number: [id number] Policy Number: ROLY Group Number: [id number]
== END 2024-05-06 14:27 | disposition home or self-care (01) ==
PROVIDERS: PCP Physician Assistant; Visit Provider Nurse Practitioner Family
DX: G93.2 Benign intracranial hypertension (principal); E66.9 Obesity, unspecified; Z68.30 Body mass index [BMI] 30.0-30.9, adult
CPT/HCPCS: 98005

== ENCOUNTER → 2024-05-06 07:54 | Outpatient (BNVA) | payer OTHER, SELFPAY | PROVIDERS: PCP Physician Assistant; Visit Provider Nurse Practitioner Family ==

== ENCOUNTER 2024-06-17 15:33 | Outpatient (AMB) | payer OTHER, SELFPAY ==
--- OUTSIDE RECORDS SUMMARY | 2024-06-17 15:35 | XMS_ITS | Continuity of Care Document ---
Author Organization [facility] Address [address] [place] [address] [address] [place] [address]- Care Team Providers Care Software Development Coordinator Name Role Phone Lencho Palomares Primary Care Physician [phone] Encounter [facility] Date(s): 04/20/24 - 05/20/[address] [place], [place] [address] Attending Physician: Nitesh Wetzel Admitting Physician: Nitesh Wetzel Referring Physician: AdmtrNietsh Encounter Type: Triage Allergies, Adverse Reactions, Alerts No Known Allergies Medications acetaZOLAMIDE 500 mg oral capsule, extended release 500 mg, By Mouth, Every 12 hours, # 180 tablet, Refills 0, Tot. Refills 0, Maintenance, 07/04/23 1:17:00 PM EST, Route to Pharmacy Electronically, [facility], Partial fill upon patient [...] Refills, Maintenance, 07/04/23 1:17:00 PM EST, Tablet, [facility], Partial fill upon patient [...] class I Confirmed Active Obesity Confirmed Active Social History Social History Type Response Smoking Status Former smoker, quit more than 30 days ago entered on: 04/20/24 Sex Sex Representation Female (finding) Patient Care team information Care Team Personnel Name: Lencho Palomares Position: Reference Physician Member Role: PCP Address: [address] [place] [address] Telecom: Name: Clare Paul RN Position: Mya RN Member Role: Primary Care Nurse Name: Emily Parks RN Position: Mya MEEK Nurse Member Role: Primary Care Nurse Insurance Providers Guarantor name: ROLY Health Plan Information #: 1 Payer: JOSE GIFFORD HMO Member Number: ROLY Policy Number: ROLY Group Number: [id number]
[2024-06-17 15:38] VITALS: BP 112/80; PULSE 74; TEMP 36.1; O2SAT 99; BMI 32.4
--- NOTE | 2024-06-17 15:38 | A.OFFPC_ITS ---
Vital Signs 06/17/24 15:38 Height 5 ft 9 in Weight 219 lb 4 oz BMI 32.4 BP 112/80 Blood Pressure Location Lt brachial Position Sitting Pulse 74 Pulse Source Pulse Oximeter Temp 96.9 F Temp Source Temporal Artery Scan Pulse Oximetry (%) 99 Oxygen Delivery Method Room Air Intake Visit Reasons: f/u ADHD Allergies acetazolamide Adverse Reaction (Intermediate, Verified 06/17/24 15:47) Anxiety Medication List - Last Reconciled 06/17/24 by Lencho Kim PA-C acetaminophen (Tylenol) 650 mg (2 x 325 mg) PO Q6H PRN dextroamphetamine-amphetamine 10 mg ER (Adderall XR) 10 mg PO DAILY 30 days dextroamphetamine-amphetamine 5 mg ER (Adderall XR) 10 mg (2 x 5 mg) PO DAILY 28 days escitalopram oxalate 10 mg PO DAILY 90 days levonorgestrel (Liletta) 1 device intrauterine DIRECTED topiramate 25 mg PO BID 30 days Tobacco use date assessed: 04/14/24 Dental Screening Dental Screen Date: 07/18/23 HPI f/u ADHD HPI Details Patient is a 39-year-old female here today for a follow-up. Patient's past medical history significant for generalized anxiety disorder, depression, intracranial hypertension and ADHD. Intracranial hypertension; now followed by Neurology. Her Topamax was recently reduced to 25 mg. Was diagnosed with IIH-was diagnosed spring at [facility]--> underwent a Lumbar puncture noted high pressures. She did undergo CT and MRI of brain. . Unfortunately had adverse reaction to acetazolamide unable to tolerate. Has followed up with ophthomology and papilla edema has significantly reduced/ almost negligible. .. Anorectal pain : Patient has a history of a anorectal abscess. Has followed up with general surgeon here in [place] though are unable to appreciate her abscess. She does report having significant pain later in the day to the point where she has to lay down and rest. She reports she is able to express some kind of drainage if she puts pressure inside of her vagina. 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 .. Seasonal affective disorder: Continues on escitalopram 10 mg with decent relief of her depressive thoughts and moods. . ADHD: Has continued on Adderall 10 mg extended release on workdays and has found a significant improvement in her attention and focus along with productivity at work. She has been promoted at work. She denies any ill side effects from stimulant medication. [facility] Medical History (Updated 06/17/24 @ 16:04 by Lencho Kim PA-C) Herpes zoster Rotator cuff tear, left Anal pain Ulnar neuropathy Elevated blood pressure reading Surgical History Perianal abscess Family History Sister Bipolar 1 disorder Brother Autism Schizophrenia Asperger syndrome Brother No problems noted. Mother Diabetes Father Diabetes Son No problems noted. Son No problems noted. Other Mental health disorder Social History Household Members: Spouse and Children Housing: House Do you presently have visiting nurse or other home services: No Alcohol intake: current Alcohol intake frequency: holidays/special occasions only Patient Tobacco Use Status: Former Tobacco user Tobacco use type: Cigarette e-Cigarette/Vaping Use: Never Used Second Hand Smoke Exposure: Yes Substance Use Type: Marijuana service: No Current occupational status: employed Cognitive needs: No Hearing needs: No Vision needs: Yes Female Reproductive History Menstrual Age of Menarche: 10 Questionnaire PHQ-9 Over the last 2 weeks, how often have you been bothered by any of the following problems? 1. Little interest or pleasure in doing things: not at all 2. Feeling down, depressed, or hopeless: not at all 3. Trouble falling or staying asleep, or sleeping too much: not at all 4. Feeling tired or having little energy: not at all 5. Poor appetite or overeating: not at all 6. Feeling bad about yourself - or that you are a failure or have let yourself or your family down: not at all 7. Trouble concentrating on things, such as reading the newspaper or watching television: not at all 8. Moving or speaking so slowly that other people could have noticed. Or the opposite - being so fidgety or restless that you have been moving around a lot more than usual: not at all 9. Thoughts that you would be better off or of hurting yourself in some way: not at all Total score: 0 Depression Screening Interpretation: Negative Depression Screening Done: Yes 55320 - PHQ-9 Billing: Yes Source: Developed by Drs. Venkatesh Camara, Merlyn Ortiz, Kali Hamilton and colleagues, with an educational sully from [employer]. Thrive Questionnaire Date Thrive assessed: 06/17/24 I am a: Patient What is your living situation today?: I have a steady place to live Within the past 12 months, did the food you bought not last and you didn't have the money to get more?: Never true Within the past 12 months, did you worry whether your food would run out before you got money to buy more?: Never true Do you have trouble paying for medicines?: No Do you have trouble getting transportation to medical appointments?: No Do you have trouble paying your heating and electricity bill?: No Do you have trouble taking care of your child, family member or friend?: No Do you have trouble with day-to-day activities such as bathing, preparing meals, shopping, managing finances, etc.?: No Are you currently unemployed and looking for a job?: No Are you interested in more education?: No Please select the resources that you would like help with: None Currently or been in a relationship where the following occur: No concerns reported THRIVE Score: 0 AUDIT C Alcohol Use Questionnaire (AUDIT-C) 1. How often do you have a drink containing alcohol?: Never 2. How many drinks containing alcohol do you have on a typical day when you are drinking?: 1 or 2 3. How often do you have six or more drinks on one occasion?: Never Total Score: 0 RATNA-7 AMB Questionnaire RATNA-7 Date RATNA - 7 assessed: 06/17/24 Feeling nervous, anxious, or on edge: 0 = Not at all Not being able to stop or control worryin = Not at all Worrying too much about different things: 0 = Not at all Trouble relaxin = Not at all Being so restless that it is hard to sit still: 0 = Not at all Becoming easily annoyed or irritable: 0 = Not at all Feeling afraid as if something awful might happen: 0 = Not at all Total RATNA-7 score (0-4 normal; 5-9 mild; 10-14 moderate; 15-21 severe): 0 Source: Developed by Drs. Venkatesh Camara, Merlyn Ortiz, Kali Hamilton and colleagues, with an educational sully from [employer]. RATNA-7 Assessment Billing RATNA-7 Assessment Tool: RATNA-7 Assessment 90040 Review of Systems Const Denies headache(s) Eyes Denies loss of vision ENT Denies vertigo, Denies dizziness, Denies headache(s) and Denies sore throat Card Denies chest pain, Denies leg edema and Denies lightheadedness Resp Denies cough, Denies hemoptysis and Denies wheezing GI Denies abdominal pain, Denies melena, Denies constipation, Denies diarrhea and Denies vomiting Denies urinary frequency, Denies dysuria and Denies urinary urgency Musc Denies arthralgias, Denies joint swelling, Denies numbness and Denies tingling Neuro Denies Abnormal speech present, Denies behavioral changes, Denies vertigo, Denies dizziness, Denies headache(s), Denies loss of vision, Denies memory loss, Denies numbness and Denies tingling Psych Denies anxiety, Denies behavioral changes, Denies depression, Denies memory loss and Denies panic attacks Domo/Lymph Denies easy bleeding and Denies easy bruising Aller/Immun Denies wheezing Physical exam (Primary Care) Vital Signs: Last Vital Signs Temp 96.9 F 06/17/24 15:38 Pulse 74 06/17/24 15:38 BP 112/80 06/17/24 15:38 Pulse Ox 99 06/17/24 15:38 Oxygen Delivery Method Room Air 06/17/24 15:38 BMI result Body Mass Index 32.4 Tobacco/Smoking Status: Tobacco use Status Tobacco use date assessed 04/14/24 06/17/24 15:39 Patient Tobacco Use Status Former Tobacco user 06/17/24 15:39 Tobacco use type Cigarette 06/17/24 15:39 e-Cigarette/Vaping Use Never Used 06/17/24 15:39 PHQ-9: PHQ-9 Score PHQ-9: Total score 0 06/17/24 15:48 Depression Screening Interpretation: Negative Thrive Assessment: Date of Thrive Assessment Date Thrive assessed 06/17/24 06/17/24 15:39 Currently or been in a relationship where the following occur: No concerns reported Const General: healthy appearing, no acute distress, alert and awake Nutritional Appearance: well nourished Orientation/consciousness: oriented to person, oriented to place and oriented to time HENMT Ears: TM's normal bilaterally General nose exam: Normal nasal mucous membranes and turbinates present Eyes Conjunctivae: conjunctivae normal Sclerae: sclerae normal Pupils: Equal, round and reactive pupils present Neck Neck: Yes no lymphadenopathy and Yes no JVD Thyroid: Thyroid normal Carotids: no bruits Resp Effort & Inspection: normal respiratory effort and not tachypneic Auscultation: no crackles, no rales, no rhonchi and no wheezes Cardio Rate: regular rate Rhythm: regular rhythm Heart sounds: no murmurs and normal S1 and S2 GI Palpation (GI): Soft to palpation, nontender, no hepatomegaly and no splenomegaly Auscultation: normal bowel sounds Skin General skin exam: no rashes or lesions noted and dry skin Neuro General: oriented to person, oriented to place and oriented to time Cranial nerves: Yes Equal, round and reactive pupils present Speech: No Abnormal speech present Gait exam (Neuro): Normal gait present Motor exam (neuro): no tremor noted Extrem Right upper extremity: full ROM Left upper extremity: full ROM Right lower extremity: full ROM; no edema Left lower extremity: full ROM; no edema Psych Mental Status: mental status grossly normal Speech and movement: Normal speech and movement present Affect: normal affect Attitude: cooperative Thought process: Normal thought process present Coding Level of Care Code Est Pt Level 4 (02266) Diagnoses Attention deficit hyperactivity disorder (ADHD), predominantly inattentive type F90.0 Attention deficit-hyperactivity disorder type: predominantly inattentive Seasonal affective disorder F33.8 Abscess of anal and rectal regions K61.2 IIH (idiopathic intracranial hypertension) G93.2 Class 1 obesity E66.811 Additional Codes RATNA-7 Assessment Billing - RATNA-7 Assessment Tool: RATNA-7 Assessment 67885 ([id number]) PHQ-9 - 47646 - PHQ-9 Billing: Yes ([id number]) Assessment & Plan Assessment & Plan (1) ADHD: Code(s): F90.9 - Attention-deficit hyperactivity disorder, unspecified type Category: Medical Qualifiers: Attention deficit-hyperactivity disorder type: predominantly inattentive Qualified Code(s): F90.0 - Attention-deficit hyperactivity disorder, p redominantly inattentive type Plan: As per HPI patient has been doing well on current dose of stimulant ADHD medication. She is working full-time and is very productive. She is looking for a new job in a higher position. (2) Seasonal affective disorder: Code(s): F33.8 - Other recurrent depressive disorders Category: Medical Plan: As per [facility], patient continues on SSRI therapy throughout the follow winter months for her seasonal affective disorder. (3) Abscess of anal and rectal regions: Code(s): K61.2 - Anorectal abscess Category: Medical Plan: Patient has followed up [facility] annual rectal surgeon in his due for surgery July 03 to repair of her fistula. (4) IIH (idiopathic intracranial hypertension): Code(s): G93.2 - Benign intracranial hypertension Category: Medical Plan: Continues to follow Nephrology. Continues on Topamax 25 mg daily. She also has an upcoming ophthalmology appointment to evaluate her optic disc. Otherwise she is asymptomatic (5) Class 1 obesity: Code(s): E66.811 - Obesity, class 1 Category: Medical Plan: Patient does understand her BMI is over 30 will work on being more physically active and adapt to better eating habits to reduce her weight. Has been much more inactive due to her anorectal pain and she anticipates to be more physically active after recovery from surgery.
== END 2024-06-17 16:01 | disposition home or self-care (01) ==
PROVIDERS: PCP Physician Assistant; Visit Provider Physician Assistant
DX: F90.0 Attention-deficit hyperactivity disorder, predominantly inattentive type (principal); F33.8 Other recurrent depressive disorders; E66.811 Obesity, class 1; Z68.32 Body mass index [BMI] 32.0-32.9, adult; K61.2 Anorectal abscess; G93.2 Benign intracranial hypertension

== ENCOUNTER → 2024-06-17 15:33 | Outpatient (BNVA) | payer OTHER, SELFPAY | PROVIDERS: PCP Physician Assistant; Visit Provider Physician Assistant | DX: F90.0 Attention-deficit hyperactivity disorder, predominantly inattentive type (principal); F33.8 Other recurrent depressive disorders; K61.2 Anorectal abscess; G93.2 Benign intracranial hypertension; E66.811 Obesity, class 1; Z68.32 Body mass index [BMI] 32.0-32.9, adult; Z79.899 Other long term (current) drug therapy | CPT/HCPCS: 96127 ==

== ENCOUNTER 2024-09-22 15:33 | Outpatient (AMB) | payer OTHER, SELFPAY ==
--- NOTE | 2024-09-22 15:37 | A.OFFPC_ITS ---
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 Accompanied by: Self / Same As Patient Allergies acetazolamide Adverse Reaction (Intermediate, Verified 09/22/24 16:15) Anxiety Medication List - Last Reconciled 09/22/24 by Lencho Kim PA-C acetaminophen (Tylenol) 650 mg (2 x 325 mg) PO Q6H PRN dextroamphetamine-amphetamine 10 mg ER (Adderall XR) 10 mg PO DAILY 30 days dextroamphetamine-amphetamine 5 mg ER (Adderall XR) 10 mg (2 x 5 mg) PO DAILY 28 days escitalopram oxalate 10 mg PO DAILY 90 days levonorgestrel (Liletta) 1 device intrauterine DIRECTED topiramate 25 mg PO BID 30 days Tobacco use date assessed: 09/22/24 Dental Screening Dental Screen Date: 09/22/24 Did you have a dental visit in the last 12 months?: Yes Did you have a dental problem in the last 6 months where you did not have access to dental care?: No Was dental information given to patient?: Patient has dentist HPI 3m f/u HPI Details Patient is a 39-year-old female here today for a follow-up. Patient's past medical history significant for generalized anxiety disorder, depression, intracranial hypertension and ADHD. Intracranial hypertension; now followed by Neurology. Her Topamax was recently reduced to 25 mg. Was diagnosed with IIH-was diagnosed spring at [facility]--> underwent a Lumbar puncture noted high pressures. She did undergo CT and MRI of brain. . Unfortunately had adverse reaction to acetazolamide unable to tolerate. Has followed up with ophthomology and papilla edema has significantly reduced/ almost negligible. .. 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 She reports she does not feel the surgery was successful as she still has pain and discharge. She has followed up with her general surgeon at [facility] whom recommended giving his surgery and few more weeks and will consider a repeat surgery She does report having significant pain later in the day to the point where she has to lay down and rest. She reports she is able to express some kind of drainage if she puts pressure inside of her vagina. .. Seasonal affective disorder: Continues on escitalopram 10 mg with decent relief of her depressive thoughts and moods. . ADHD: Has continued on Adderall 10 mg extended release on workdays and has found a significant improvement in her attention and focus along with productivity at work. She has been promoted at work. She denies any ill side effects from stimulant medication. [facility] Medical History Herpes zoster Rotator cuff tear, left Anal pain Ulnar neuropathy Elevated blood pressure reading Surgical History Perianal abscess Family History Sister Bipolar 1 disorder Brother Autism Schizophrenia Asperger syndrome Brother No problems noted. Mother Diabetes Father Diabetes Son No problems noted. Son No problems noted. Other Mental health disorder Social History Household Members: Spouse and Children Housing: House Do you presently have visiting nurse or other home services: No Alcohol intake: current Alcohol intake frequency: holidays/special occasions only Patient Tobacco Use Status: Former Tobacco user Tobacco use type: Cigarette e-Cigarette/Vaping Use: Never Used Second Hand Smoke Exposure: Yes Substance Use Type: Marijuana service: No Current occupational status: employed Cognitive needs: No Hearing needs: No Vision needs: Yes Female Reproductive History Menstrual Age of Menarche: 10 Questionnaire PHQ-9 Over the last 2 weeks, how often have you been bothered by any of the following problems? 1. Little interest or pleasure in doing things: not at all 2. Feeling down, depressed, or hopeless: not at all 3. Trouble falling or staying asleep, or sleeping too much: not at all 4. Feeling tired or having little energy: not at all 5. Poor appetite or overeating: not at all 6. Feeling bad about yourself - or that you are a failure or have let yourself or your family down: not at all 7. Trouble concentrating on things, such as reading the newspaper or watching television: not at all 8. Moving or speaking so slowly that other people could have noticed. Or the opposite - being so fidgety or restless that you have been moving around a lot more than usual: not at all 9. Thoughts that you would be better off or of hurting yourself in some way: not at all Total score: 0 Depression Screening Interpretation: Negative Depression Screening Done: Yes [id number] - PHQ-9 Billing: Yes Source: Developed by Drs. Venkatesh Camara, Merlyn Ortiz, Kali Hamilton and colleagues, with an educational sully from [employer] Thrive Questionnaire Date Thrive assessed: 09/22/24 I am a: Patient What is your living situation today?: I have a steady place to live Within the past 12 months, did the food you bought not last and you didn't have the money to get more?: Never true Within the past 12 months, did you worry whether your food would run out before you got money to buy more?: Never true Do you have trouble paying for medicines?: No Do you have trouble getting transportation to medical appointments?: No Do you have trouble paying your heating and electricity bill?: No Do you have trouble taking care of your child, family member or friend?: No Do you have trouble with day-to-day activities such as bathing, preparing meals, shopping, managing finances, etc.?: No Are you currently unemployed and looking for a job?: No Are you interested in more education?: No Please select the resources that you would like help with: None Currently or been in a relationship where the following occur: No concerns reported THRIVE Score: 0 AUDIT C Alcohol Use Questionnaire (AUDIT-C) 1. How often do you have a drink containing alcohol?: Monthly or less 2. How many drinks containing alcohol do you have on a typical day when you are drinking?: 1 or 2 3. How often do you have six or more drinks on one occasion?: Never Total Score: 1 RATNA-7 AMB Questionnaire RATNA-7 Date RATNA - 7 assessed: 09/22/24 Feeling nervous, anxious, or on edge: 0 = Not at all Not being able to stop or control worryin = Not at all Worrying too much about different things: 0 = Not at all Trouble relaxin = Not at all Being so restless that it is hard to sit still: 0 = Not at all Becoming easily annoyed or irritable: 0 = Not at all Feeling afraid as if something awful might happen: 0 = Not at all Total RATNA-7 score (0-4 normal; 5-9 mild; 10-14 moderate; 15-21 severe): 0 Source: Developed by Drs. Venkatesh Camara, Merlyn Ortiz, Kali Hamilton and colleagues, with an educational sully from [employer] RATNA-7 Assessment Billing RATNA-7 Assessment Tool: RATNA-7 Assessment 77128 Review of Systems Const Denies headache(s) Eyes Denies loss of vision ENT Denies vertigo, Denies dizziness, Denies headache(s) and Denies sore throat Card Denies chest pain, Denies leg edema and Denies lightheadedness Resp Denies cough, Denies hemoptysis and Denies wheezing GI Denies abdominal pain, Denies melena, Denies constipation, Denies diarrhea and Denies vomiting Denies urinary frequency, Denies dysuria and Denies urinary urgency Musc Denies arthralgias, Denies joint swelling, Denies numbness and Denies tingling Neuro Denies Abnormal speech present, Denies behavioral changes, Denies vertigo, Denies dizziness, Denies headache(s), Denies loss of vision, Denies memory loss, Denies numbness and Denies tingling Psych Denies anxiety, Denies behavioral changes, Denies depression, Denies memory loss and Denies panic attacks Domo/Lymph Denies easy bleeding and Denies easy bruising Aller/Immun Denies wheezing Physical exam (Primary Care) Vital Signs: Last Vital Signs Temp 97.5 F 09/22/24 15:51 Pulse 90 09/22/24 15:51 BP 136/84 09/22/24 15:51 Pulse Ox 98 09/22/24 15:51 Oxygen Delivery Method Room Air 09/22/24 15:51 BMI result Body Mass Index 31.9 Tobacco/Smoking Status: Tobacco use Status Tobacco use date assessed 09/22/24 09/22/24 15:58 Patient Tobacco Use Status Former Tobacco user 09/22/24 15:37 Tobacco use type Cigarette 09/22/24 15:37 e-Cigarette/Vaping Use Never Used 09/22/24 15:37 PHQ-9: PHQ-9 Score PHQ-9: Total score 0 09/22/24 16:16 Depression Screening Interpretation: Negative Thrive Assessment: Date of Thrive Assessment Date Thrive assessed 09/22/24 09/22/24 15:58 Currently or been in a relationship where the following occur: No concerns reported Const General: healthy appearing, no acute distress, alert and awake Nutritional Appearance: well nourished Orientation/consciousness: oriented to person, oriented to place and oriented to time HENMT Ears: TM's normal bilaterally General nose exam: Normal nasal mucous membranes and turbinates present Eyes Conjunctivae: conjunctivae normal Sclerae: sclerae normal Pupils: Equal, round and reactive pupils present Neck Neck: Yes no lymphadenopathy and Yes no JVD Thyroid: Thyroid normal Carotids: no bruits Resp Effort & Inspection: normal respiratory effort and not tachypneic Auscultation: no crackles, no rales, no rhonchi and no wheezes Cardio Rate: regular rate Rhythm: regular rhythm Heart sounds: no murmurs and normal S1 and S2 GI Palpation (GI): Soft to palpation, nontender, no hepatomegaly and no splenomegaly Auscultation: normal bowel sounds Skin General skin exam: no rashes or lesions noted and dry skin Neuro General: oriented to person, oriented to place and oriented to time Cranial nerves: Yes Equal, round and reactive pupils present Speech: No Abnormal speech present Gait exam (Neuro): Normal gait present Motor exam (neuro): no tremor noted Extrem Right upper extremity: full ROM Left upper extremity: full ROM Right lower extremity: full ROM; no edema Left lower extremity: full ROM; no edema Psych Mental Status: mental status grossly normal Speech and movement: Normal speech and movement present Affect: normal affect Attitude: cooperative Thought process: Normal thought process present Coding Level of Care Code Est Pt Level 4 (54963) Diagnoses Attention deficit hyperactivity disorder (ADHD), predominantly inattentive type F90.0 Attention deficit-hyperactivity disorder type: predominantly inattentive Seasonal affective disorder F33.8 Abscess of anal and rectal regions K61.2 Class 1 obesity E66.811 Additional Codes RATNA-7 Assessment Billing - RATNA-7 Assessment Tool: RATNA-7 Assessment 59160 ([id number]) PHQ-9 - 21250 - PHQ-9 Billing: Yes ([id number]) Assessment & Plan Assessment & Plan (1) ADHD: Code(s): F90.9 - Attention-deficit hyperactivity disorder, unspecified type Category: Medical Qualifiers: Attention deficit-hyperactivity disorder type: predominantly inattentive Qualified Code(s): F90.0 - Attention-deficit hyperactivity disorder, predominantly inattentive type Plan: As per HPI patient has been doing well on current dose of stimulant ADHD medication. She is working full-time and is very productive. She is looking for a new job in a higher position. (2) Seasonal affective disorder: Code(s): F33.8 - Other recurrent depressive disorders Category: Medical Plan: As per HPI, patient continues on SSRI therapy throughout the follow winter months for her seasonal affective disorder. (3) Abscess of anal and rectal regions: Code(s): K61.2 - Anorectal abscess Category: Medical Plan: Patient has followed up [facility] annual rectal surgeon and did undergo surgery to fix her rectal fistula in June of 2024. Unfortunately she still feels symptoms and feels that the surgery did not work. She followed up with her surgeon whom recommended given a a few more weeks to see if symptoms clear and will consider surgery again. (4) Class 1 obesity: Code(s): E66.811 - Obesity, class 1 Category: Medical Plan: Patient does understand her BMI is over 30 will work on being more physically active and adapt to better eating habits to reduce her weight. Has been much more inactive due to her anorectal pain and she anticipates to be more physically active after recovery from surgery. Orders: Orders Complete Blood Count no Diff 09/22/24 E66.811 - Obesity, class 1 Comprehensive [place]. Panel Fast 09/22/24 E66.811 - Obesity, class 1 Medications: Refilled dextroamphetamine-amphetamine 5 mg ER (Adderall XR) Partial Fill upon patient request. 10 mg (2 x 5 mg) PO DAILY 56 caps 0RF 28 days F90.0 - Attention-deficit hyperactivity disorder, predominantly inattentive type
[2024-09-22 15:51] VITALS: BP 136/84; PULSE 90; TEMP 36.4; O2SAT 98; BMI 31.9
== END 2024-09-22 16:49 | disposition home or self-care (01) ==
LOC: HO.HMCH 15:34
PROVIDERS: PCP Physician Assistant; Visit Provider Physician Assistant
DX: K61.2 Anorectal abscess (principal); E66.811 Obesity, class 1; Z68.31 Body mass index [BMI] 31.0-31.9, adult; F90.0 Attention-deficit hyperactivity disorder, predominantly inattentive type; F33.8 Other recurrent depressive disorders

== ENCOUNTER → 2024-09-22 15:33 | Outpatient (BNVA) | payer OTHER, SELFPAY | PROVIDERS: PCP Physician Assistant; Visit Provider Physician Assistant | DX: F41.1 Generalized anxiety disorder (principal); G93.2 Benign intracranial hypertension; F33.8 Other recurrent depressive disorders; K61.2 Anorectal abscess; E66.811 Obesity, class 1; F90.0 Attention-deficit hyperactivity disorder, predominantly inattentive type; Z68.31 Body mass index [BMI] 31.0-31.9, adult | CPT/HCPCS: 96127 ==

== ENCOUNTER 2024-10-29 08:15 | Outpatient (AMB) | payer OTHER, SELFPAY ==
--- NOTE | 2024-10-29 08:23 | MHC.OFFVIS ---
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 No complaints. Last Pap/HPV was ascus HPV positive, colpo biopsy ECC showed VERENA 1 No previous screening Mammogram 06/22 pelvic ultrasound showed the following: There is a 2 cm complicated cyst in the right ovary that could represent a hemorrhagic cyst or corpus luteal cyst, recommend follow-up with pelvic ultrasound to 4-6 weeks. The right ovary is enlarged and there is free fluid adjacent to the right ovary, findings may be physiologic and related with the presence of the cyst, although the presence of partial torsion or torsion/detorsion cannot be excluded. Clinical correlation is needed; if there is high suspicious for acute ovarian pathology, then a shorter follow-up ultrasound is recommended. [facility] Medical History Dysplasia of cervix, low grade (VERENA 1) Herpes zoster Rotator cuff tear, left Anal pain Ulnar neuropathy Elevated blood pressure reading Surgical History Perianal abscess Family History Sister Bipolar 1 disorder Brother Autism Schizophrenia Asperger syndrome Brother No problems noted. Mother Diabetes Father Diabetes Son No problems noted. Son No problems noted. Other Mental health disorder Social History Household Members: Spouse and Children Housing: House Do you presently have visiting nurse or other home services: No Alcohol intake: current Alcohol intake frequency: holidays/special occasions only Patient Tobacco Use Status: Former Tobacco user Tobacco use type: Cigarette e-Cigarette/Vaping Use: Never Used Second Hand Smoke Exposure: Yes Substance Use Type: Marijuana service: No Current occupational status: employed Cognitive needs: No Hearing needs: No Vision needs: Yes Female Reproductive History Menstrual Age of Menarche: 10 control method: progestin IUCD Date of last pap smear: 05/13/23 History of abnormal pap smear: Yes (Ascus, HPV +) Review of Systems Const All systems reviewed & are unremarkable except as noted in HPI and below Card Reports as per HPI Resp Reports as per HPI GI Reports as per HPI and Reports no additional complaints Reports as per HPI Physical Exam Vital Signs: Last Vital Signs BP 130/80 10/29/24 08:24 BMI result Body Mass Index 31.7 Const General: cooperative, healthy appearing and comfortable Chest Chest palpation & inspection: normal inspection of the chest and normal palpation of entire chest wall Breast/axilla inspection: normal inspection of the breasts and normal inspection of the axillae Breast/axilla palpation: normal palpation of the breasts, normal palpation of the axillae and no axillary lymphadenopathy Resp Effort & Inspection: normal respiratory effort Auscultation: clear to auscultation bilaterally Percussion: percussion normal Cardio Palpation: normal PMI Rate: regular rate Rhythm: regular rhythm Heart sounds: no murmurs and no rubs Peripheral pulses: Peripheral pulses 2+ throughout GI Inspection: Yes normal to inspection Palpation (GI): Soft to palpation, nontender, no guarding, not rigid and No hepatosplenomegaly present Percussion: Yes normal to percussion Auscultation: normal bowel sounds Rectal Exam - Female: deferred General: Yes bladder normal to palpation External Female Exam: No lesion Speculum Exam - Vagina: normal appearance of the vagina, normal palpation, normal vaginal discharge and not erythematous Speculum Exam - Cervix: normal appearance of the cervix, normal palpation and Other cervical findings present (IUD string in place) Bimanual exam- vagina & uterus: normal bimanual exam, normal palpation, uterine size normal, bladder normal to palpation, consistency normal and normal palpation Bimanual Exam- Adnexa, other: normal adnexae, no masses and no tenderness Assessment & Plan Assessment & Plan (1) Well woman exam with routine gynecological exam: Comment: VERENA 1 in 05/22 Code(s): Z01.419 - Encounter for gynecological examination (general) (routine) without abnormal findings Category: Medical Plan: Cotesting done. Mammogram ordered. Counseled the patient about the recommended dietary allowance of 1000 mg of Calcium & 600 IU of vitamin D. The patient was instructed to perform monthly self-breast exams and to schedule an annual exam in a year; All questions answered and the patient verbalized understanding. Instructed the patient to schedule annual exam in a year (2) Ovarian cyst: Code(s): N83.209 - Unspecified ovarian cyst, unspecified side Category: Medical Plan: Pelvic ultrasound ordered, instructions given the patient to schedule ultrasound follow-up appointment within 2 weeks. All questions answered, the patient verbalized understanding Orders: Orders MM tomosynthesis screening BI Today Z12.31 - Encounter for screening mammogram for malignant neoplasm of breast US pelvic and transvaginal Today N83.209 - Unspecified ovarian cyst, unspecified side Coding Level of Care Code Est Pt Prev Care 18-39y(35781) Diagnoses Well woman exam with routine gynecological exam Z01.419 Ovarian cyst N83.209
[2024-10-29 08:24] VITALS: BP 130/80; BMI 31.7
== END 2024-10-29 08:54 | disposition home or self-care (01) ==
LOC: HO.HWS 08:15
PROVIDERS: PCP Physician Assistant; Visit Provider Obstetrics & Gynecology
DX: Z01.419 Encounter for gynecological examination (general) (routine) without abnormal findings (principal); N83.209 Unspecified ovarian cyst, unspecified side
CPT/HCPCS: 99395; 99459

== ENCOUNTER 2024-10-29 08:15 | Outpatient (REF) | payer OTHER, SELFPAY | END 2024-10-29 08:16 | disposition home or self-care (01) | LOC: HO.LNP 08:15 | PROVIDERS: PCP Physician Assistant; Visit Provider Obstetrics & Gynecology | DX: R87.810 Cervical high risk human papillomavirus (HPV) DNA test positive (principal); R87.610 Atypical squamous cells of undetermined significance on cytologic smear of cervix (ASC-US) | CPT/HCPCS: 87626; 88175 ==

== ENCOUNTER 2024-11-24 13:06 | Outpatient (REF) | payer OTHER, SELFPAY | END 2024-11-24 13:07 | disposition home or self-care (01) | LOC: HO.LNP 13:06 | PROVIDERS: PCP Physician Assistant; Visit Provider Obstetrics & Gynecology | DX: R87.810 Cervical high risk human papillomavirus (HPV) DNA test positive (principal); Z32.02 Encounter for pregnancy test, result negative | CPT/HCPCS: 57454; 81025; 88305 ==

== ENCOUNTER 2024-11-24 13:06 | Outpatient (AMB) | payer OTHER, SELFPAY ==
--- NOTE | 2024-11-24 13:09 | MHC.OFFVIS ---
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: No Information Interpreted: non-clinical & clinical Drawing In Hand: Drawing In Hand Present (Ping VELASCO) Accompanied by: Self / Same As Patient Allergies acetazolamide Adverse Reaction (Intermediate, Verified 11/24/24 13:23) Anxiety Is last menstrual period known: No (mirena) HPI Comments Details: Presenting with negative Pap smear/HPV 18 positive [facility] Medical History (Updated 11/24/24 @ 13:23 by Donis Santillan MD) Dysplasia of cervix, low grade (VERENA 1) Herpes zoster Rotator cuff tear, left Anal pain Ulnar neuropathy Elevated blood pressure reading Surgical History Perianal abscess Family History Sister Bipolar 1 disorder Brother Autism Schizophrenia Asperger syndrome Brother No problems noted. Mother Diabetes Father Diabetes Son No problems noted. Son No problems noted. Other Mental health disorder Social History Household Members: Spouse and Children Housing: House Do you presently have visiting nurse or other home services: No Alcohol intake: current Alcohol intake frequency: holidays/special occasions only Patient Tobacco Use Status: Former Tobacco user Tobacco use type: Cigarette e-Cigarette/Vaping Use: Never Used Second Hand Smoke Exposure: Yes Substance Use Type: Marijuana service: No Current occupational status: employed Cognitive needs: No Hearing needs: No Vision needs: Yes Female Reproductive History Menstrual Age of Menarche: 10 Review of Systems Const All systems reviewed & are unremarkable except as noted in HPI and below Reports as per HPI and Reports no additional complaints GI Reports no additional complaints Reports no additional complaints Physical Exam Vital Signs: BMI result Body Mass Index 31.7 Office Procedures Colposcopy Colposcopy: Pre-Procedure Counseling: Before beginning the procedure, I conducted comprehensive counseling with the patient. We thoroughly discussed the procedure itself, including its details, alternatives, and all associated risks. This included but not limited to the following complications such as bleeding, infection, and injury to the vagina, bladder, and vessels, as well as the potential need for transfusion with all its associated risks. Subsequently, the patient sign the consent. Pap smear result: Negative Pap/HPV 18 positive. Urine test in office = Negative Procedure: During the procedure, the following steps were performed: A speculum was inserted, and acetic acid was applied. Colposcopy was conducted, allowing visualization of the transformation zone. Acetowhite lesions were identified at the 5+ 6+ 11+ 1 o'clock position. Cervical biopsies were obtained from the 5+ 6+ 11+ 1 o'clock position, followed by an endocervical curettage (ECC). Vaginoscopy of the upper vagina revealed no evidence of aceto-white lesions. Hemostasis was achieved using Monsel solution, and the patient tolerated the procedure well. Post-Procedure Instructions: The patient was advised to promptly contact the office or the after hours answering service or go to the emergency room if experiencing a temperature exceeding 100.4?F, abdominal pain, nausea/vomiting, or bleeding. Additionally, the patient was instructed to abstain from vaginal intercourse and bathtub use. The patient confirmed understanding of these instructions. Discharge Instructions: The patient was instructed to schedule a follow-up appointment in 2 weeks for further evaluation and management. Please note that this note was generated using a voice recognition program, and errors may have occurred during rag production worker. 47259-Xjrrbqtdr of cervix including upper vagina with biopsy and ECC Procedure code (CPT) selection complete Results AMB Test Urine AMB Test Urine Negative Last Edit by Ping Asher CMA on 11/24/24 13:24 Assessment & Plan Assessment & Plan (1) Cervical high risk HPV (human papillomavirus) test positive: Comment: HPV 18 positive, HPV 16 negative, negative Pap smear Code(s): R87.810 - Cervical high risk human papillomavirus (HPV) DNA test positive Category: Medical Plan: Discussed with the patient the result of her normal Pap/HPV 18 positive, its significance, risk of progression, persistence, and regression. the false positive/negative rate of a Pap smear as a screening test in detecting cervical cancer and the indication for a diagnostic test -colposcopy, biopsy, endocervical curettage. The patient verbalized understanding and agreed with the plan, all questions answered. Colposcopy, biopsy /ECC done, see procedure note Orders: Orders AMB HCG Urine Test Today Z32.02 - Encounter for test, result negative AMB Colposcopy Today R87.810 - Cervical high risk human papillomavirus (HPV) DNA test positive Coding Level of Care Code Procedure Only Diagnoses Cervical high risk HPV (human papillomavirus) test positive R87.810 CPT Codes Colposcopy - CPT: 25764-Yjukkuzth of cervix including upper vagina with biopsy and ECC ([id number])
[2024-11-24 13:20] VITALS: BMI 31.7
== END 2024-11-24 13:34 | disposition home or self-care (01) ==
LOC: HO.HWS 13:06
PROVIDERS: PCP Physician Assistant; Visit Provider Obstetrics & Gynecology
DX: R87.810 Cervical high risk human papillomavirus (HPV) DNA test positive (principal); Z32.02 Encounter for pregnancy test, result negative
CPT/HCPCS: 57454

== ENCOUNTER 2024-12-01 09:19 | Outpatient (AMB) | payer OTHER, SELFPAY ==
--- NOTE | 2024-12-01 09:20 | MHC.OFFVIS ---
Intake Visit Reasons: colpo results Allergies acetazolamide Adverse Reaction (Intermediate, Verified 11/24/24 13:23) Anxiety HPI Comments Details: The patient scheduled a telehealth visit post colpo for follow-up. The patient is doing well with no complaints. The pathology showed the following: A. Endocervix, curettage: Endocervical glandular mucosa and squamous epithelial cells with inflammation; negative for dysplasia. B. Cervix, 1:00, biopsy: Endocervical glandular mucosa with focal squamous epithelium with reactive changes; negative for dysplasia. C. Cervix, 5:00, biopsy: Endocervical glandular mucosa; negative for dysplasia; no squamous mucosa present. D. Cervix, 6:00, biopsy: Endocervical glandular mucosa; negative for dysplasia; no squamous mucosa present. E. Cervix, 11:00, biopsy: Endocervical glandular mucosa; negative for dysplasia; no squamous mucosa present. Comment: The patient's previous negative Pap test ([id number]) concurs with the current biopsy [facility] Medical History Dysplasia of cervix, low grade (VERENA 1) Herpes zoster Rotator cuff tear, left Anal pain Ulnar neuropathy Elevated blood pressure reading Surgical History Perianal abscess Family History Sister Bipolar 1 disorder Brother Autism Schizophrenia Asperger syndrome Brother No problems noted. Mother Diabetes Father Diabetes Son No problems noted. Son No problems noted. Other Mental health disorder Social History Household Members: Spouse and Children Housing: House Do you presently have visiting nurse or other home services: No Alcohol intake: current Alcohol intake frequency: holidays/special occasions only Patient Tobacco Use Status: Former Tobacco user Tobacco use type: Cigarette e-Cigarette/Vaping Use: Never Used Second Hand Smoke Exposure: Yes Substance Use Type: Marijuana service: No Current occupational status: employed Cognitive needs: No Hearing needs: No Vision needs: Yes Female Reproductive History Menstrual Age of Menarche: 10 Review of Systems Const All systems reviewed & are unremarkable except as noted in HPI and below Reports as per HPI and Reports no additional complaints GI Reports no additional complaints Reports no additional complaints Telehealth Telehealth Telehealth Platform: Telephone Location of provider rendering services: practice address Location of patient: address on file Patient Identification confirmed using: Name, : Yes Telehealth method: video Patient verbally consented to treatment: Yes Patient verbally consented to billing insurance company: Yes Patient informed of any privacy concerns related to visit: Yes Minutes spent on Phone/Video with Pt.: 2 Assessment & Plan Assessment & Plan (1) Cervical high risk HPV (human papillomavirus) test positive: Comment: HPV 18 positive, HPV 16 negative, negative Pap smear Code(s): R87.810 - Cervical high risk human papillomavirus (HPV) DNA test positive Category: Medical Plan: Discussed with the patient the pathology results of the colposcopy biopsies & endocervical curettage (negative). Discussed with the patient the sensitivity specificity, positive and negative predictive value in detecting cervical cancer in addition discussed the regression, persistence and progression rates. Recommended co-testing in 12 months, if cytology and or HPV are abnormal will proceed was colposcopy biopsy and endocervical curettage, if lesions gets worse or stays persistent for 2 years will proceed with loop electric excision procedure. Instructions given to the patient to schedule a co test appointment in 1 year. All questions answered the patient verbalized understanding. I spent a total of 20 minutes reviewing the chart, talking to the patient via video and documenting in the medical record. Coding Level of Care Code Tele Est Pt Level 3 (84862) Diagnoses Cervical high risk HPV (human papillomavirus) test positive R87.810
== END 2024-12-01 09:44 | disposition home or self-care (01) ==
LOC: HO.HWS 09:19
PROVIDERS: PCP Physician Assistant; Visit Provider Obstetrics & Gynecology
DX: R87.810 Cervical high risk human papillomavirus (HPV) DNA test positive (principal)
CPT/HCPCS: 99213

== ENCOUNTER 2025-01-14 15:05 | Outpatient (AMB) | payer OTHER, SELFPAY ==
--- NOTE | 2025-01-14 15:18 | MHC.PC.OV ---
Vital Signs 01/14/25 15:19 Height 5 ft 9 in Weight 215 lb 2 oz BMI 31.8 BP 130/60 Blood Pressure Location Lt brachial Position Sitting Pulse 66 Pulse Source Pulse Oximeter Temp 97.5 F Temp Source Temporal Artery Scan Pulse Oximetry (%) 97 Oxygen Delivery Method Room Air Intake Visit Reasons: Annual Exam Intake Note: Patient is here today for a physical. Desktop Administrator Required: No Airborne Sensor Specialist: Not Required per policy Accompanied by: Self / Same As Patient Allergies acetazolamide Adverse Reaction (Intermediate, Verified 01/14/25 15:32) Anxiety Medication List - Last Reconciled 01/14/25 by Lencho Kim PA-C acetaminophen (Tylenol) 650 mg (2 x 325 mg) PO Q6H PRN dextroamphetamine-amphetamine 5 mg ER (Adderall XR) 10 mg (2 x 5 mg) PO DAILY 28 days escitalopram oxalate 10 mg PO DAILY 90 days levonorgestrel (Liletta) 1 device intrauterine DIRECTED topiramate 25 mg PO BID 30 days Tobacco use date assessed: 01/14/25 Dental Screening Dental Screen Date: 09/22/24 HPI Annual Exam HPI Details Patient is a 39-year-old female here today for routine annual physical. Patient's past medical history significant for generalized anxiety disorder, depression, intracranial hypertension and ADHD. Concern--> patient reports 4 months ago injuring her ankle while running in the grass. Ever since this injury she has intermittent episodes of electric like shooting pain that radiates from the dorsum of her foot into her plantar arch. Concerns here for nerve entrapment issue. Will refer to Podiatry Intracranial hypertension; now followed by Neurology. Her Topamax was recently reduced to 25 mg. Was diagnosed with IIH-was diagnosed spring at [facility]--> underwent a Lumbar puncture noted high pressures. She did undergo CT and MRI of brain. . Unfortunately had adverse reaction to acetazolamide unable to tolerate. Has followed up with ophthomology and papilla edema has significantly reduced/ almost negligible. .. 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 She reports she does not feel the surgery was successful as she still has pain and discharge. She has followed up with her general surgeon at [facility] whom recommended giving his surgery and few more weeks and will consider a repeat surgery She does report having significant pain later in the day to the point where she has to lay down and rest. She reports she is able to express some kind of drainage if she puts pressure inside of her vagina. .. Seasonal affective disorder: Patient will consider restarting Lexapro in near future as she does have seasonal affective disorder throughout the winter . ADHD: Has continued on Adderall 10 mg extended release on workdays and has found a significant improvement in her attention and focus along with productivity at work. She has been promoted at work. She denies any ill side effects from stimulant medication. 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 Mother Diabetes Father Diabetes Son No problems noted. Son No problems noted. 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- [employer] Cognitive needs: No Hearing needs: No Vision needs: Yes Female Reproductive History Menstrual Age of Menarche: 10 Questionnaire Thrive Questionnaire Date Thrive assessed: 09/22/24 I am a: Patient What is your living situation today?: I have a steady place to live Within the past 12 months, did the food you bought not last and you didn't have the money to get more?: Never true Within the past 12 months, did you worry whether your food would run out before you got money to buy more?: Never true Do you have trouble paying for medicines?: No Do you have trouble getting transportation to medical appointments?: No Do you have trouble paying your heating and electricity bill?: No Do you have trouble taking care of your child, family member or friend?: No Do you have trouble with day-to-day activities such as bathing, preparing meals, shopping, managing finances, etc.?: No Are you currently unemployed and looking for a job?: No Are you interested in more education?: No Please select the resources that you would like help with: None Currently or been in a relationship where the following occur: No concerns reported THRIVE Score: 0 RATNA-7 AMB Questionnaire RATNA-7 Date RATNA - 7 assessed: 09/22/24 Source: Developed by Drs. Venkatesh Camara, Merlyn Ortiz, Kali Hamilton and colleagues, with an educational sully from [employer]. Review of Systems Const Denies body aches, Denies chills, Denies excessive sweating, Denies fatigue, Denies fever(s) and Denies headache(s) Eyes Denies blurry vision ENT Denies dysphagia, Denies vertigo, Denies dizziness, Denies headache(s), Denies hearing loss and Denies tinnitus Card Denies chest pain, Denies chest pain with activity, Denies syncope, Denies irregular heart rhythm and Denies dyspnea Resp Denies chest congestion, Denies cough, Denies hemoptysis, Denies dyspnea and Denies wheezing GI Denies abdominal pain, Denies melena, Denies hematochezia, Denies coffee ground emesis, Denies dysphagia, Denies diarrhea, Denies nausea and Denies vomiting Denies urinary frequency, Denies dysuria, Denies urinary hesitancy and Denies urinary urgency Musc Denies arthralgias, Denies limited range of motion, Denies muscle cramps and Denies muscle weakness Skin/Breast Denies rash and Denies skin ulcer Neuro Denies Abnormal speech present, Denies confusion, Denies vertigo, Denies dizziness, Denies syncope, Denies headache(s), Denies memory loss and Denies seizure-like activity Psych Denies anxiety, Denies confusion, Denies depression, Denies memory loss, Denies panic attacks and Denies paranoia Endo Denies excessive sweating, Denies fatigue, Denies flushing, Denies polydipsia and Denies polyuria Aller/Immun Denies wheezing Physical exam (Primary Care) Vital Signs: Last Vital Signs Temp 97.5 F 01/14/25 15:19 Pulse 66 01/14/25 15:19 BP 130/60 01/14/25 15:19 Pulse Ox 97 01/14/25 15:19 Oxygen Delivery Method Room Air 01/14/25 15:19 BMI result Body Mass Index 31.8 BMI Assessment/Plan discussion: High BMI High, discussed plan: lifestyle, weight reduction, dietary and physical activity Tobacco/Smoking Status: Tobacco use Status Tobacco use date assessed 01/14/25 01/14/25 15:24 Patient Tobacco Use Status Former Tobacco user 01/14/25 15:24 Tobacco use type Cigarette 01/14/25 15:24 e-Cigarette/Vaping Use Never Used 01/14/25 15:24 Thrive Assessment: Date of Thrive Assessment Date Thrive assessed 09/22/24 01/14/25 15:24 Currently or been in a relationship where the following occur: No concerns reported Const Other: obese General: cooperative, comfortable, no acute distress, alert and awake; No confusion Orientation/consciousness: oriented to person, oriented to place, patient oriented x3 and No confusion HENMT Head: Yes normocephalic Ears: external ears normal and TM's normal bilaterally Face and sinus: No sinus tenderness Mouth: Normal oral and palatal mucosa present and tongue normal Teeth and gingiva: dentition normal and gingiva normal Throat: Yes posterior oropharynx normal, Yes tonsils normal and Yes uvula midline Eyes Conjunctivae: conjunctivae normal Sclerae: sclerae normal Pupils: Equal, round and reactive pupils present EOM: EOMs intact bilaterally Direct Ophthalmoscopy: No no photophobia Neck Neck: Yes no lymphadenopathy, No tender and Yes no JVD Thyroid: Thyroid normal Carotids: no bruits Chest Chest palpation & inspection: no tenderness Resp Effort & Inspection: normal respiratory effort, no audible wheezes, not labored and no stridor Auscultation: no crackles, no rales, no rhonchi and no wheezes Cardio Jugular venous distension: no JVD Rate: regular rate, not bradycardic and not tachycardic Rhythm: regular rhythm Bruits: no carotid bruits Peripheral pulses: Peripheral pulses 2+ throughout GI Inspection: Yes normal to inspection, No abdominal wall ecchymosis and No visible herniation Palpation (GI): Soft to palpation, nontender, no guarding, not rigid and No hepatosplenomegaly present Auscultation: normoactive bowel sounds General: Yes no CVA tenderness Back/Spine/Pelvis Back: no CVA tenderness and No back tenderness Cervical Spine: cervical ROM normal Thoracic/Lumbar Spine: thoracic and lumbar spine normal to inspection, straight leg raise negative bilaterally, No thoraco-lumbar ROM limited and No lumbar spinal tenderness Skin Lesions: no lesions Rashes: no rashes Wounds: no wounds Neuro General: oriented to person, oriented to place, patient oriented x3, CN's II-XI intact bilaterally and No confusion Cranial nerves: Yes Equal, round and reactive pupils present and Yes Normal accommodation reflex present Cognition (Neuro): normal cognition Speech: No Abnormal speech present Gait exam (Neuro): Normal gait present Motor exam (neuro): 5/5 motor strength present throughout Extrem Right upper extremity: full ROM; no cyanosis Left upper extremity: full ROM; no cyanosis Right lower extremity: no edema Left lower extremity: no edema Psych Appearance: grossly normal Mental Status: mental status grossly normal Affect: normal affect Attitude: cooperative Thought process: Normal thought process present Coding Level of Care Code Est Pt Prev Care 18-39y([id number]) Diagnoses Annual physical exam Z00.00 Attention deficit hyperactivity disorder (ADHD), predominantly inattentive type F90.0 Attention deficit-hyperactivity disorder type: predominantly inattentive Seasonal affective disorder F33.8 Class 1 obesity E66.811 Nerve entrapment syndrome of left foot G57.92 Assessment & Plan Assessment & Plan (1) Annual physical exam: Code(s): Z00.00 - Encounter for general adult medical examination without abnormal findings Category: Medical Plan: As per HPI (2) ADHD: Code(s): F90.9 - Attention-deficit hyperactivity disorder, unspecified type Category: Medical Qualifiers: Attention deficit-hyperactivity disorder type: predominantly inattentive Qualified Code(s): F90.0 - Attention-deficit hyperactivity disorder, predominantly inattentive type Plan: As per HPI patient has been doing well on current dose of stimulant ADHD medication. She is working full-time and is very productive. She is looking for a new job in a higher position. (3) Seasonal affective disorder: Code(s): F33.8 - Other recurrent depressive disorders Category: Medical Plan: As per HPI, patient continues on SSRI therapy throughout the follow winter months for her seasonal affective disorder. (4) Class 1 obesity: Code(s): E66.811 - Obesity, class 1 Category: Medical Plan: Patient does understand her BMI is over 30 will work on being more physically active and adapt to better eating habits to reduce her weight. Has been much more inactive due to her anorectal pain and she anticipates to be more physically active after recovery from surgery. (5) Nerve entrapment syndrome of left foot: Code(s): G57.92 - Unspecified mononeuropathy of left lower limb Category: Medical Plan: Patient's signs and symptoms of electric like shock feeling and numbness in the upper aspect of her foot and radiates into the for arch is concerning for a nerve issue. Will refer to Podiatry for evaluation Orders: Orders XR foot LT 2V Today G57.92 - Unspecified mononeuropathy of left lower limb Referrals Podiatry Referral G57.92 - Unspecified mononeuropathy of left lower limb Medications: Refilled dextroamphetamine-amphetamine 5 mg ER (Adderall XR) Partial Fill upon patient request. 10 mg (2 x 5 mg) PO DAILY 56 caps 0RF 28 days F90.0 - Attention-deficit hyperactivity disorder, predominantly inattentive type
[2025-01-14 15:19] VITALS: BP 130/60; PULSE 66; TEMP 36.4; O2SAT 97; BMI 31.8
== END 2025-01-14 15:56 | disposition home or self-care (01) ==
LOC: HO.HMCH 15:06
PROVIDERS: PCP Physician Assistant; Visit Provider Physician Assistant
DX: Z00.00 Encounter for general adult medical examination without abnormal findings (principal); F90.0 Attention-deficit hyperactivity disorder, predominantly inattentive type; E66.811 Obesity, class 1; Z68.31 Body mass index [BMI] 31.0-31.9, adult; F33.8 Other recurrent depressive disorders; G57.92 Unspecified mononeuropathy of left lower limb

== ENCOUNTER 2025-02-02 09:24 | Outpatient (AMB) | payer OTHER, SELFPAY ==
[2025-02-02 09:30] VITALS: BMI 31.0
--- NOTE | 2025-02-02 09:30 | MHC.OFFVIS ---
Vital Signs 02/02/25 09:30 Height 5 ft 9 in Weight 210 lb BMI 31.0 Intake Visit Reasons: New Pt - Left Foot & Ankle Numbness & Pain Intake Note: Neelam is a 39 year old female who presents today as a New Patient with complaints of Left Foot/Ankle Pain. Patient was last seen with her PCP, Nikos Kim where she reported an injury to the Left Ankle about 5 months ago while running through grass. She describes a electric like shock feeling, numbness and pain that is felt on the dorsum of the left foot and radiates to the arch. She reports she has not tried any treatment for the injury previously however she has wrapped the ankle and tried ibuprofen for her pain as needed but she still experiences the electric shock sensation at least once a week. Allergies acetazolamide Adverse Reaction (Intermediate, Verified 02/02/25 09:31) Anxiety Medication List - Last Reconciled 02/02/25 by Luma Wise, DPM acetaminophen (Tylenol) 650 mg (2 x 325 mg) PO Q6H PRN dextroamphetamine-amphetamine 5 mg ER (Adderall XR) 10 mg (2 x 5 mg) PO DAILY 28 days escitalopram oxalate 10 mg PO DAILY 90 days levonorgestrel (Liletta) 1 device intrauterine DIRECTED topiramate 25 mg PO BID 30 days HPI Comments Details: The patient is a 39-year-old female with a past medical history as seen below presenting with concerns related to a previous left ankle sprain and persistent numbness in the ankle/foot. The ankle sprain occurred several months ago while the patient was chasing a duck, resulting in significant pain. The pain was severe enough to prevent sleep for about a week, and the patient managed it with ibuprofen and wrapping the ankle. Patient states she experiences intermittent moderate pain to the lateral aspect of the ankle, worsened with increased activity and ambulation. Currently, the patient reports persistent numbness in the ankle/foot on the medial aspect with occasional soreness and stiffness. The numbness is sometimes accompanied by an itchy sensation, but no burning sensation is reported. The patient has not had any imaging studies done yet. 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 She denies any other pedal concerns. [facility] Medical History Dysplasia of cervix, low grade (VERENA 1) Herpes zoster Rotator cuff tear, left Anal pain Ulnar neuropathy Elevated blood pressure reading Surgical History Perianal abscess Family History Sister Bipolar 1 disorder Brother Autism Schizophrenia Asperger syndrome Brother No problems noted. Mother Diabetes Father Diabetes Son No problems noted. Son No problems noted. 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 - Neurological: Reports numbness in the left ankle/foot with occasional itchiness. Denies burning sensation. Physical Exam Vital Signs: BMI result Body Mass Index 31.0 Extrem Other: Left lower extremity focused physical exam: Derm: Pre hyperkeratotic lesions noted to the plantar lateral aspects of the feet bilaterally along the base of the 5th metatarsal. Mild edema noted to the lateral aspect of the ankle. No open lesions abrasions or wounds noted. No ecchymosis or discoloration noted. Clinical signs of infection. No maceration. Vascular: DP/PT pulses palpable. Capillary refill time less than 3 seconds. Temperature gradient warm to warm. Pedal hair absent. No varicosities noted. Neuro: Protective sensation is grossly intact except for the medial aspect of the ankle and foot along the course of the medial dorsal cutaneous nerve. MSK: No pain on palpation to the ankle diffusely. Mild pain with range of motion of the ankle mostly it upon inversion. No crepitus noted. MMT 5/5. Nonantalgic gait unassisted noted. Negative anterior drawer test. Results Reviewed Results Reviewed: Ordered Left ankle 3 views weightbearing xrays, EMG, and NCV to be performed prior to next appointment. Assessment & Plan Assessment & Plan (1) Left ankle pain: Code(s): M25.572 - Pain in left ankle and joints of left foot Category: Medical Qualifiers: Chronicity: acute Qualified Code(s): M25.572 - Pain in left ankle and joints of left foot (2) Left ankle injury: Code(s): S99.912A - Unspecified injury of left ankle, initial encounter Category: Medical Qualifiers: Encounter type: initial encounter Qualified Code(s): S99.912A - Unspecified injury of left ankle, initial encounter (3) Paresthesia of left foot: Code(s): R20.2 - Paresthesia of skin Category: Medical (4) Numbness of left foot: Code(s): R20.0 - Anesthesia of skin Category: Medical (5) Left ankle sprain: Code(s): S93.402A - Sprain of unspecified ligament of left ankle, initial encounter Category: Medical Qualifiers: Encounter type: initial encounter Involved ligament of ankle: unspecified ligament Qualified Code(s): S93.402A - Sprain of unspecified ligament of left ankle, initial encounter Plan Patient was informed and verbally consented to the use of an ambient scribe for clinic note documentation during this visit. I discussed with the patient the likely diagnosis of an ankle sprain with associated numbness due to possible nerve impingement. We talked about the importance of imaging studies, including x-rays and a nerve conduction study, to better understand the extent of the injury. I explained the benefits of wearing a lace-up ankle brace for support and continuing ibuprofen for pain management. We also discussed the importance of wearing supportive footwear to prevent further complications. I advised a follow-up in three weeks to review the results of the diagnostic tests and assess the patient's progress. - Ordered x-rays to assess joint space and potential ligament issues. - Ordered a nerve conduction study to evaluate nerve involvement. - Recommend wearing an ankle brace for support during activities. Provided patient with lace-up ankle brace. - WBAT to the LLE without the use of an assistive device. - Continue ibuprofen for pain management as needed. - Advise wearing supportive footwear to prevent further callus formation and to use an emollient. - Avoid barefoot walking. Follow up in 3 weeks for re-evaluation of symptoms and imaging. If pain persists or worsens will consider use of Meloxicam and PT. Orders: Orders NE electromyogram (EMG) Today R20.0 - Anesthesia of skin, R20.2 - Paresthesia of skin XR ankle LT min 3V Today M25.572 - Pain in left ankle and joints of left foot, S99.912A - Unspecified injury of left ankle, initial encounter NE nerve conduction velocity Today R20.0 - Anesthesia of skin, R20.2 - Paresthesia of skin Coding Level of Care Code New Pt Level 4 (07562) Diagnoses Acute left ankle pain M25.572 Chronicity: acute Injury of left ankle, initial encounter S99.912A Encounter type: initial encounter Paresthesia of left foot R20.2 Numbness of left foot R20.0 Sprain of left ankle, unspecified ligament, initial encounter S93.402A Encounter type: initial encounter Involved ligament of ankle: unspecified ligament Time Spent (min) 55
== END 2025-02-02 10:06 | disposition home or self-care (01) ==
LOC: HO.HPODS 09:25
PROVIDERS: PCP Physician Assistant; Visit Provider Student in an Organized Health Care Education/Training Program
DX: M25.572 Pain in left ankle and joints of left foot (principal); S99.912A Unspecified injury of left ankle, initial encounter; R20.2 Paresthesia of skin; R20.0 Anesthesia of skin; S93.402A Sprain of unspecified ligament of left ankle, initial encounter
CPT/HCPCS: 99204